=== PATIENT | female | born 2000 | race Hispanic/Latino ===

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

== ENCOUNTER 2019-07-01 16:23 | Emergency (ER) | payer BC, SELFPAY ==
--- OUTSIDE RECORDS SUMMARY | 2019-07-01 16:25 | XMS REPORT | Encounter Summary ---
:2000 Author Care Team Providers Name Role Phone Dr. Rosalina Marin Primary Care Provider [phone] Reason for Visit ear pain/problem Instructions 1. Impacted cerumen of bilateral ears docusate sodium 50 mg/5 mL oral liquid 2. Influenza vaccination declined 3. Immunization refused 4. Body mass index 20-24 - normal Discussion Note: None recorded.Patient educational handouts: No information available. Plan of Care Patient Instructions Meds were sent to your pharmacy today, please call if any issues call/email if you are not feeling better within the next 1-2 weeks Reminders Provider Appointments Est Patient 05/31/2018 Rosalina Mcnair 9:30AM MD [facility] None recorded. Referral None recorded. Procedures None recorded. Surgeries None recorded. Imaging None recorded. Medications Name Start Date docusate sodium 50 mg/5 mL oral liquid apply 1 ml to each ear QHS, rinse thoroughly with warm water after 10 minutes ondansetron odt 4 mg tbdp Medications Administered None recorded. Vitals Height Weight BMI Blood Pressure 5 ft 1.5 in 107.8 lbs 20 kg/m2 122/64 mm[Hg] Lab Results None recorded. Allergies Code Code System Name Reaction Severity Status Onset NKDA Problems No Known Problems Procedures Date Name Performed by 04/13/2000 ENT Surgery (Ear, Nose, Throat) Information not available Vaccine List None recorded. Social History Smoking Status Never Smoker Past Encounters 05/24/2018 Impacted Cerumen of Bilateral Ears; Influenza Vaccination Declined; Immunization Refused; Body Mass Index 20-24 - Normal Rosalina Marin MD: [id number], [address], [place] [address], Ph. History of Present Illness Note: 18 yo female accompanied by mom c/o muffled hearing bilateral ears, x1 week, no relief with homeperoxide treatment<div>initially with nasal congestion and sore throat last week, now resolved</div><div>no relief with mucinex </div><div>denies cough, fever, </div> Review of Systems: ROS as noted in the HPI Review of Systems None recorded. Physical Exam Notes: General: well developed, well nourished, in no acute distress.

Head: normocephalic and atraumatic.

Eyes: PERRL/EOM intact, conjunctiva and sclera clear with out nystagmus.

Ears: TM' obscured with deep cerumen bilaterally, decreased sensitvity to finger rub bilaterally<div>
Nose: no deformity, discharge, inflammation, or lesions.

Mouth: no deformity or lesions with good dentition.

Neck: no masses, thyromegaly, or abnormal cervical nodes.

Chest Wall: no deformities or masses noted.

Lungs: clear bilaterally to auscultation. nonlabored respiratory effort, no wheeze, rales or rhonchi

Heart: chest non-tender; regular rate and rhythm, S1, S2 without murmurs, rubs, or gallops

Abdomen: soft, nontender, nondistended, no masses, no hernia, no rebound, normoactive bowel sounds

Msk: no deformity or scoliosis noted of thoracic or lumbar spine.

Pulses: pulses normal in all 4 extremities.

Extremities: no clubbing, cyanosis, edema, or deformity noted with normal full range of motion of all joints.

Neurologic: no focal deficits, cranial nerves II-XII grossly intact with normal sensation, reflexes, coordination, muscle strength and tone.

Skin: intact without lesions or rashes.

Lymph Nodes:no significant cervical, axillary or supraclavicular adenopathy.

Psych: alert and cooperative; normal mood and affect; normal attention span and concentration. No suicidal/homicidal ideations, no panic attacks</div>
[2019-07-01] MEDS ORDERED: KETOROLAC 30 MG/ML INJ ONE (17:23)
--- NOTE | 2019-07-01 17:38 | RAD REPORT ---
EXAM DESCRIPTION: CT - Stone Protocol - 07/01/2019 5:27 pm CLINICAL HISTORY: FLANK PAIN, right-sided COMPARISON: No comparisons TECHNIQUE: Axial 5 mm thick images were obtained without oral or IV contrast. The [id number] span s the entirety of the system including uppermost abdomen and lung bases. All CT scans are performed using dose optimization technique as appropriate and may include automated exposure control or mA/KV adjustment according to patient size. FINDINGS: Moderate severity hydronephrosis and hydroureter present secondary to a 7 mm distal right ureteral calculus. No other right-sided calculi. A 3 millimeter calcification of the left kidney is p robably within the parenchyma. No suspicious renal masses. Isodense masses and pyelonephritis are not excluded on a stone protocol CT scan. Urinary bladder is fully contracted limiting assessment. No bl adder calculi. No significant adrenal finding. Uterus and ovaries show no suspicious findings. Imaged portions of the liver, spleen and pancreas show no suspicious findings on non-contrast imaging . No gallbladder or biliary tree abnormality identified. No suspicious bowel findings. Appendix is normal. No active bowel process identified. No hernia, mass or bulky lymphadenopathy noted. No free air, free fluid or inflammatory stranding. No significant bony abnormality. IMPRESSION: Moderate severity hydronephrosis and hydroureter secondary to a 7 mm calculus at the UVJ . Isodense masses and pyelonephritis are not excluded on stone protocol technique.
[2019-07-01 17:48] LABS: Urine Blood 2+ (NEG); Urine Glucose NEGATIVE (NEG); Urine Protein TRACE (NEG); Urine pH 8.5 (5.0-7.0)
--- NOTE | 2019-07-01 18:16 | EDPHYS ---
Physician Documentation [facility] Name: Chay Nicholson Age: 19 yrs Sex: Female : 2000 Arrival Date: 07/01/2019 Time: 16:26 Bed 23 Private MD: ED Physician Victorino Hunt HPI: 06/30 18:07 This 19 yrs old Female presents to ER via Ambulatory with complaints of ps1 Abdominal Cramping, Vomiting, General Weakness, Vaginal Bleeding. 18:07 patient has had right flank pain for 2 days. States that the pain radiates to groin. No ps1 fever but does attest to nausea and vomiting. Pain rated as moderate. Able to tolerate PO. . 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 - Social history:: Smoking status: Patient denies any tobacco usage or history of. ROS: 18:07 Constitutional: Negative for fever, chills, and weight loss, Eyes: Negative for injury, ps1 pain, redness, and discharge, Cardiovascular: Negative for chest pain, palpitations, and edema, Respiratory: Negative for shortness of breath, cough, wheezing, and pleuritic chest pain, MS/Extremity: Negative for injury and deformity, Skin: Negative for injury, rash, and discoloration, Neuro: Negative for headache, weakness, numbness, tingling, and seizure. 18:07 Abdomen/GI: Positive for nausea and vomiting. 18:07 : Positive for urinary symptoms, flank pain. Exam: 18:07 Constitutional: This is a well developed, well nourished patient who is awake, alert, ps1 and in no acute distress. Head/Face: Normocephalic, atraumatic. Eyes: Pupils equal round and reactive to light, extra-ocular motions intact. Lids and lashes normal. Conjunctiva and sclera are non-icteric and not injected. Chest/axilla: Normal chest wall appearance and motion. Nontender with no deformity. No lesions are appreciated. Cardiovascular: Regular rate and rhythm. No gallops, murmurs, or rubs. Normal PMI, no JVD. No pulse deficits. Respiratory: Lungs have equal breath sounds bilaterally, clear to auscultation and percussion. No rales, rhonchi or wheezes noted. No increased work of breathing, no retractions or nasal flaring. Abdomen/GI: Soft, non-tender, with normal bowel sounds. No distension or tympany. No guarding or rebound. No evidence of tenderness throughout. Skin: Warm, dry with normal turgor. Normal color with no rashes, no lesions, and no evidence of cellulitis. MS/ Extremity: Pulses equal, no cyanosis. Neurovascular intact. Full, normal range of motion. Vital Signs: 16:44 BP 117 / 76; Pulse 76; Resp 18; Temp 97.4; Pulse Ox 100% on R/A; Weight 53.52 kg; ph Height 5 ft. 0 in. (152.40 cm); Pain 10/10; 18:00 BP 100 / 69; Pulse 74; Resp 16; Pulse Ox 98% on R/A; vc 19:02 BP 109 / 74; Pulse 71; Resp 17; Pulse Ox 98% on R/A; Pain 0/10; vc 16:44 Body Mass Index 23.05 (53.52 kg, 152.40 cm) ph MDM: 16:46 Patient medically screened. ps1 18:07 Data reviewed: vital signs, nurses notes, lab test result(s), radiologic studies, and ps1 as a result, I will discharge patient. ED course: 19 y/o with 7mm stone. No leukocytosis or UTI. Home with trial of medical expulsion therapy. Referral to Dr. Doherty. Home with toradol, zofran, flomax. . 03 16:50 Order name: CBC with Diff ps1 06/30 16:50 Order name: CMP ps1 06/30 17:21 Order name: Urine Dipstick--Ancillary (enter results); Complete Time: 18:04 eb 06/30 17:21 Order name: Urine --Ancillary (enter results); Complete Time: 18:04 eb 06/30 17:22 Order name: Urine Microscopic Only ls4 06/30 16:36 Order name: Urine Dipstick-Ancillary (obtain specimen); Complete Time: 17:16 ps1 06/30 16:36 Order name: Urine Test (obtain specimen); Complete Time: 17:15 ps1 06/30 17:15 Order name: CT Stone Protocol; Complete Time: 18:04 ps1 06/30 17:59 Order name: Labs - recollect needed: recollect all lab/ clotted; Complete Time: 18:17 eb Administered Medications: 17:22 Drug: TORadol - Ketorolac 15 mg Route: IVP; Site: right antecubital; vc 18:17 Follow up: Response: No adverse reaction; Pain is decreased vc Disposition: 07/01/19 18:15 Discharged to Home. Impression: Unspecified renal colic - 7mm stone RUPG. - Condition is Stable. - Discharge Instructions: Kidney Stones, Renal Colic. - Prescriptions for ketorolac 10 mg Oral tablet - take 1 tablet by ORAL route every 4-6 hours not to exceed 40 mg in 24hrs; 10 tablet. Zofran 4 mg Oral Tablet - take 1 tablet by ORAL route every 12 hours As needed; 20 tablet. Flomax 0.4 mg Oral Capsule, Sust. Release 24 hr - take 1 capsule by ORAL route once daily 1/2 hour following the same meal each day; 30 capsule. - Medication Reconciliation Form, Thank You Letter, Antibiotic Education, Prescription Opioid Use form. - Follow up: Emergency Department; When: As needed; Reason: Fever > 102 F, Worsening of condition. Follow up: Javi Doherty MD; When: 48 Hours; Reason: Further diagnostic work-up, Recheck today's complaints, Continuance of care. - Problem is new. - Symptoms have improved. Signatures: Dispatcher [employer] Yana Burns RN RN Victorino Hunt MD MD ps1 Botello, Elizabeth eb Calcote, Vanessa RN RN vc Corrections: (The following items were deleted from the chart) 19:17 18:15 07/01/2019 18:15 Discharged to Home. Impression: Unspecified renal colic - 7mm vc stone RUPG. Condition is Stable. Forms are Medication Reconciliation Form, Thank You Letter, Antibiotic Education, Prescription Opioid Use. Follow up: Emergency Department; When: As needed; Reason: Fever > 102 F, Worsening of condition. Follow up: Javi Doherty; When: 48 Hours; Reason: Further diagnostic work-up, Recheck today's complaints, Continuance of care. Problem is new. Symptoms have improved. ps1
--- NOTE | 2019-07-01 18:16 | ER ---
Nurse's Notes [facility] Name: Chay Nicholson Age: 19 yrs Sex: Female : 2000 Arrival Date: 07/01/2019 Time: 16:26 Bed 23 Private MD: Diagnosis: Unspecified renal colic-7mm stone RUPG Presentation: 06/30 16:44 Chief complaint: Patient states: C/O sever abdominal cramping and low back pain, ph states, " I started my period today but usually my cramps aren't very painful but then my back started hurting and I started vomiting and having chills." Denies urinary symptoms or diarrhea. Coronavirus screen: The patient has NOT traveled to a country currently being monitored by the [facility] within the last 14 days. The patient has NOT had contact with any known and/or suspected case of coronavirus. Ebola Screen: No symptoms or risks identified at this time. Initial Sepsis Screen: Does the patient meet any 2 criteria? No. Patient's initial sepsis screen is negative. Does the patient have a suspected source of infection? No. Patient's initial sepsis screen is negative. Risk Assessment: Do you want to hurt yourself or someone else? Patient reports no desire to harm self or others. 16:44 Method Of Arrival: Ambulatory ph 16:44 Acuity: VISH 3 ph 18:42 Onset of symptoms was July 01, 2019. 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 - Social history:: Smoking status: Patient denies any tobacco usage or history of. Screenin:00 Abuse screen: Denies threats or abuse. Nutritional screening: No deficits noted. vc Tuberculosis screening: No symptoms or risk factors identified. Fall Risk None identified. Assessment: 17:00 Reassessment: Discharge pending lab recollect. General: Appears in no apparent vc distress. uncomfortable, ill, Behavior is calm, cooperative, appropriate for age. Pain: Complains of pain in abdomen. Neuro: Level of Consciousness is awake, alert, obeys commands, Oriented to person, place, time, situation, Appropriate for age. Cardiovascular: Patient's skin is warm and dry. Respiratory: Airway is patent Respiratory effort is even, unlabored, Respiratory pattern is regular, symmetrical. GI: Bowel sounds present X 4 quads. Abd is soft Abdomen is tender to palpation. : No signs and/or symptoms were reported regarding the genitourinary system. Urine is cloudy. EENT: No deficits noted. Derm: Skin temperature is warm. 18:00 Reassessment: Patient and/or family updated on plan of care and expected duration. Pain vc level reassessed. Patient is alert, oriented x 3, equal unlabored respirations, skin warm/dry/pink. Patient denies pain at this time. Patient states feeling better. 18:59 Reassessment: Patient and/or family updated on plan of care and expected duration. Pain vc level reassessed. Patient is alert, oriented x 3, equal unlabored respirations, skin warm/dry/pink. Patient denies pain at this time. Patient states feeling better. Patient states symptoms have improved. Vital Signs: 16:44 BP 117 / 76; Pulse 76; Resp 18; Temp 97.4; Pulse Ox 100% on R/A; Weight 53.52 kg; ph Height 5 ft. 0 in. (152.40 cm); Pain 10/10; 18:00 BP 100 / 69; Pulse 74; Resp 16; Pulse Ox 98% on R/A; vc 19:02 BP 109 / 74; Pulse 71; Resp 17; Pulse Ox 98% on R/A; Pain 0/10; vc 16:44 Body Mass Index 23.05 (53.52 kg, 152.40 cm) ph ED Course: 16:26 Patient arrived in ED. ag5 16:35 Victorino Hunt MD is Attending Physician. ps1 16:42 Caroline Faith, MARTITA is Primary Nurse. vc 16:47 Triage completed. ph 16:48 Arm band placed on Patient placed in an exam room. ph 17:00 Patient has correct armband on for positive identification. Bed in low position. Pulse vc ox on. NIBP on. Warm blanket given. 17:27 CT Stone Protocol In Process Unspecified. EDMS 18:14 Javi Doherty MD is Referral Physician. ps1 Administered Medications: 17:22 Drug: TORadol - Ketorolac 15 mg Route: IVP; Site: right antecubital; vc 18:17 Follow up: Response: No adverse reaction; Pain is decreased vc Outcome: 18:15 Discharge ordered by . ps1 19:17 Patient left the ED. vc Signatures: Dispatcher [employer] Yana Burns, MARTITA RN Victorino Montana MD MD ps1 [place], [facility] Caroline Faith RN RN vc
[2019-07-01 18:47] LABS: Absolute Lymphocytes (CBC) 0.3 K/uL (0.7-4.9); Basophils % 0.3 % (0-1.3); Hematocrit 39.3 % (36.0-45.0); Lymphocytes % 2.8 % (15.3-44.8); MPV 10.4 fL (7.6-11.3); RBC Red Blood Cell Count 4.49 M/uL (3.86-4.86)
[2019-07-01 18:51] LABS: Urine Amorphous Sediment 3+ /HPF (NONE SEEN); Urine Bacteria <20 /HPF (<20)
[2019-07-01 19:01] LABS: Albumin 4.1 g/dL (3.4-5.0); Bilirubin Total 0.4 mg/dL (0.2-1.0); Potassium 4.3 mmol/L (3.5-5.1); Protein, Total 8.3 g/dL (6.4-8.2)
[2019-07-01 19:39] VITALS: TEMP 97.4
[2019-07-01 19:40] VITALS: O2SAT 98
[2019-07-01 19:41] VITALS: BP 109/74
[2019-07-01 21:05] LABS: Blood Morphology Comment NOT SEEN (NOT SEEN); Platelet Estimate ADEQ; White Blood Cell Scan OK
== END 2019-07-01 19:17 | disposition home or self-care (01) ==
LOC: ER 16:23
DX: N20.0 Calculus of kidney (principal)
CPT/HCPCS: 36415; 74176; 76377; 80053; 81003; 81015; 81025; 85025; 96374; 99283

== ENCOUNTER 2020-08-16 21:50 | Emergency (ER) | payer OTHER, SELFPAY ==
--- OUTSIDE RECORDS SUMMARY | 2020-08-16 21:52 | XMS REPORT | Continuity of Care Document ---
:2000 Author Organization [facility] t Address [address] [place] [address] Care Team Providers Name Role Phone [facility], [facility] Attending Clinician Unavailable Problems This patient has no known problems. Allergies, Adverse Reactions, Alerts This patient has no known allergies or adverse reactions. Social History Smoking Status Start Date Stop Date Source Never Smoker [facility] Medications Ordered Filled Start Stop Current Ordering Indication Dosage Frequency Signature Comments Components Source Medication Medication Date Date Medication? Clinician (SIG) Name Name docusate docusate No docusate Marimar margaret sodium 50 sodium 50 sodium 50 Family mg/5 mL mg/5 mL mg/5 mL Practi c oral liquid oral liquid oral e apply 1 ml apply 1 ml liquid to each ear to each ear apply 1 ml QHS, rinse QHS, rinse to each thoroughly thoroughly ear QHS, with warm with warm rinse water after water after thoroughly 10 minutes 10 minutes with warm water after 10 minutes ondansetron ondansetron No ondansetro [facility] odt 4 mg odt 4 mg n odt 4 mg F amily tbdp tbdp tbdp Practic e Vital Signs Vital Name Observation Time Observation Value Comments Source BP Diastolic 2018-05-24 00:00:00 64 mm[Hg] [facility] Height 2018-05-24 00:00:00 61.5 [in_i] [facility] BMI (Body Mass 2018-05-24 00:00:00 20 kg/m2 [facility] Family Index) Practice BP Systolic 2018-05-24 00:00:00 122 mm[Hg] [facility] Body Weight 2018-05-24 00:00:00 107.8 [lb_av] [facility] Procedures This patient has no known procedures. Plan of Care Planned Activity Planned Date Details Comments Source Instructions [facility] Encounters Start End Encounter Admission Attending Care Care Encounter Source Date/Time Date/Time Type Type Clinicians Facility Department ID 2020-08-01 2020-08-01 [facility] [id number] 13:22:53 13:52:[address] 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 Results This patient has no known results.
[2020-08-16 23:31] LABS: Urine Blood Negative (Negative); Urine Glucose Negative (Negative); Urine Protein Negative (Negative); Urine Specific Gravity 1.025 (1.005-1.030)
[2020-08-16 23:39] LABS: Urine Specific Gravity/Preg 1.025 (1.005-1.030)
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
[2020-08-17 00:28] VITALS: BP 109/80; TEMP 97.1; O2SAT 99
[2020-08-17] MEDS ORDERED: NA CHLORIDE 0.9% 50 ML ONE (01:30)
[2020-08-17] MEDS ORDERED: CEFAZOLIN SODIUM 1 GM/VIAL ONE (01:30)
[2020-08-17] MEDS ORDERED: NA CHLORIDE 0.9% 500 ML ONE (01:30)
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
== END 2020-08-17 00:03 | disposition home or self-care (01) ==
LOC: ER 21:50
DX: O9A.211 Injury, poisoning and certain other consequences of external causes complicating pregnancy, first trimester (principal); S39.91XA Unspecified injury of abdomen, initial encounter; Z3A.01 Less than 8 weeks gestation of pregnancy; V49.40XA Driver injured in collision with unspecified motor vehicles in traffic accident, initial encounter
CPT/HCPCS: 81025; 81003; 76815; 99283; J7040; J0690

== ENCOUNTER 2022-10-09 09:03 | Emergency (ER) | payer OTHER, SELFPAY ==
--- OUTSIDE RECORDS SUMMARY | 2022-10-09 09:15 | XMS REPORT | Continuity of Care Document ---
:2000 Author Organization [facility] t Address [address] [facility] [address] [place] [address] Care Team Providers Name Role Phone MALDONADO KOLB Primary Care Physician Unavailable MALDONADO KOLB Attending Clinician Unavailable MARILYN TORO Attending Clinician Unavailable KAILASH SONG Attending Clinician Unavailable Kennedi Maldonado PANIAGUA Attending Clinician [phone] MONAE DOMINGO Attending Clinician Unavailable JIMBO BAKER Attending Clinician Unavailable JIMBO BAKER Attending Clinician Unavailable CHEYANNE VARGAS Attending Clinician Unavailable Cheyanne Vargas MD Attending Clinician Ultrasound, [place] Attending Clinician Unavailable Monae Domingo MD Attending Clinician [phone] [facility] [place] Ramonita BURGESS Attending Clinician Lab, Lito Attending Clinician Unavailable Avni Rosales MD Attending Clinician [phone] AVNI ROSALES Attending Clinician Unavailable Provider, Lito Temp Attending Clinician Unavailable Doctor Unassigned, [place] Attending Clinician Unavailable Victorino Hunt DO Attending Clinician VICTORINO HUNT Attending Clinician Unavailable Susan Gray Attending Clinician SUSAN LEPE Attending Clinician Unavailable Kev TOBAR, Obed Lara Attending Clinician Benson Tyler DO Attending Clinician Ly TOBAR, Kina Cool Attending Clinician Lucio CNPJorge Attending Clinician [phone] JORGE SAMANO Attending Clinician Unavailable Martha Leon MD Attending Clinician 1, [place] Room Attending Clinician Unavailable Lab, [place] Attending Clinician Unavailable Rudy MSN, Isamar Mitchell Attending Clinician JIMBO BAKER Admitting Clinician Unavailable CHEYANNE VARGAS Admitting Clinician Unavailable Cheyanne Vargas MD Admitting Clinician VICTORINO HUNT Admitting Clinician Unavailable Obed Angulo MD Admitting Clinician Payers Payer Name Policy Type Policy Number Effective Date Expiration Date [facility] [id number] 2020 CHOICE MEDICAID 00:00:00 MEDICAID PENDING PENDING 2020 00:00:00 [id number] 2016 00:00:00 Problems Condition Condition Condition Status Onset Resolution Last Treating Co mments Source Name Details Category Date Date Treatment Clinician Date Routine Routine Disease Active Univers 5-24 it y of follow-up [facility] [place] [facility] Decreased Decreased Disease Active Uni vers platelet platelet 5-04 ity of count count 00:00: [address] Branch 34 weeks 34 weeks Disease Active Unive rs gestation gestation 5-03 ity of of of 00:00: [place] 00 [facility] Branch Disease Active Univers contractio contractio 5-03 it y of ns ns 00:00: [place] 00 Medical Branch Active Active Disease Active Univers 5-03 ity of labor, not labor, [place] 00:[place] applicable applicable 00 Me dical or or Branch unspecifie unspecifie d fetus d fetus Abnormal Abnormal Disease Active Overview: Un pratik maternal maternal 3-03 Formattin ity of glucose glucose 00:00: g of this [place] tolerance, tolerance, 00 note Me dical antepartum antepartum might be Branch different from the original. passed 3hr Two vessel Two vessel Disease Active U nivers umbilical umbilical 1-23 ity of cord, cord, 00:00: [place] antepartum antepartum 00 Me dical Branch Multiparit Multiparit Disease Active 2021-04 U nivers y y 2-08 ity of 00:00: [place] [facility] BMI BMI Disease Active 2021-04 Univers 26.0-26.9, 26.0-26.9, 0-13 it y of adult adult 00:00: [place] [facility] Over Over Disease Active 2021-04 Univers weight weight 0-13 ity of 00:00: [place] [facility] Supervisio Supervisio Disease Active U nivers n of n of 3-19 ity of high-risk high-risk 00:[place] [facility] Encounter Encounter Disease Active Uni vers for for 4-20 ity of immunizati immunizati [place] [facility] Disease Active Univers (spontaneo (spontaneo 3-08 it y of [place] vaginal [place] vaginal [place] delivery[place] delivery[place] [facility] Single Single Disease Active Univers live live 3-08 it y of 00:00: [place] [facility] No known No known Disease Unive rs active active ity of problems problems [facility] Allergies, Adverse Reactions, Alerts Allergy Allergy Status Severity Reaction(s) Onset Inactive Treating Comm ents Source Name Type Date Date Clinician NO KNOWN Drug Active Univers ALLERGIE Class ity of S [facility] Social History Social Habit Start Date Stop Date Quantity Comments Source ASSERTION 2021-12-26 University of 00:00:00 [facility] Exposure to 2022-08-24 2022-09-03 Not sure [facility] SARS-CoV-2 00:00:00 11:06:00 [facility] [place] [facility] (event) [place] Tobacco use and 2022-08-13 2022-08-13 Smokeless tobacco Un iversity of exposure 00:00:00 00:00:00 non-user [facility] Alcohol intake 2022-08-13 2022-08-13 0 /d [facility] 00:00:00 00:00:00 [facility] Sex Assigned At [birth year] Universit y of 00:00:00 00:00:00 [facility] Smoking Status Start Date Stop Date Source Never smoked tobacco [facility] Medications Ordered Filled Start Stop Current Ordering Indication Dosage Frequency Signature Comments Components Source Medication Medication Date Date Medication? Clinician (SIG) Name Name rho(D) Yes 300ug 300 mcg, Univer s immune 5-04 Intramuscu ity of globulin 00:17: lar, ONCE, Danny as (RHOGAM) 01 For 1 Medical syringe 300 dose, Branch mcg Conditiona l, Routine ibuprofen Yes 600mg 600 mg, Univ ers (IBU) 5-04 Oral, ity of tablet 600 00:16: Q6[place]PRN[place] mg 52 Starting Medical on Thu Branch 08/13/22 at 1915, Until Discontinu ed, Routine, Pain (scale 4-6) diphenhydrA Yes 25mg 25 mg, Univ ers MINE 5-04 Oral, ity of (BENADRYL) 00:16: Q6[place]PRN[place] tablet 25 52 Starting Medica l mg on Thu Branch 08/13/22 at 1915, Until Discontinu ed, Routine, Sleep, Itching ondansetron Yes 4mg 4 mg, Slow Univers (ZOFRAN 5-04 IV Push, ity of (PF)) 00:16: Q8HPRN, [place] injection 4 52 Starting Medi mello mg on Thu Branch 08/13/22 at 1915, Until Discontinu ed, Routine, Nausea and Vomiting (N/V) simethicone Yes 160mg 160 mg, Un pratik (GAS RELIEF 5-04 Oral, ity of (SIMETHICON 00:16: PC+HSPRN, [place] E)) 52 Starting Medical chewable on Thu Branch tablet 160 08/13/22 at mg 1915, Until Discontinu ed, Routine, Gas docusate Yes 200mg 200 mg, Unive rs (COLACE) 5-04 Oral, ity of capsule 200 00:16: QDAILYPRN, [place] mg 52 Starting Medical on Thu Branch 08/13/22 at 1916, Until Discontinu ed, Routine, Constipati on magnesium Yes 30mL 30 mL, Univer s hydroxide 5-04 Oral, ity of (MILK OF 00:16: QDAILYPRN, [place] MAGNESIA) 52 Starting Medica l 400 mg/5 mL on Thu Branch suspension 08/13/22 at 30 mL 1915, Until Discontinu ed, Routine, Constipati on benzocaine- Yes Topical, Un pratik menthol 5-04 PRN, ity of (DERMOPLAST 00:16: [place] ) 20-0.5 % 52 on Thu Medical topical 08/13/22 at Branch spray 1915, Until Discontinu ed, Routine, Perineum discomfort Yes [id number] 1{tbl} Take 1 Univers [id number] 5-04 tablet by ity of fum-folic 00:00: mouth in [facility] () 00 the Medical 27 mg iron- morning. Bran ch 1 mg folic tablet docusate Yes [id number] 200mg Take 2 U nivers 100 mg 5-04 capsules ity of capsule 00:00: by mouth [place] 00 once daily Medical as needed Branch for Constipati on. ferrous Yes [id number] 325mg Take 1 Un prat[place] sulfate 325 5-04 tablet by ity of mg (65 mg 00:00: mouth in [facility] iron) 00 the Medical tablet morning. Branch ibuprofen Yes [id number] 600mg Take 1 Univers 600 mg 5-04 tablet by ity of tablet 00:00: mouth [place] 00 every 6 Medical (six) Branch hours as needed (Pain). Take with food or milk. Yes [id number] 1{tbl} Take 1 Univers [id number] 5-04 tablet by ity of fum-folic 00:00: mouth in [facility] () 00 the Medical 27 mg iron- morning. Bran ch 1 mg folic tablet docusate Yes [id number] 200mg Take 2 U nivers 100 mg 5-04 capsules ity of capsule 00:00: by mouth [place] 00 once daily Medical as needed Branch for Constipati on. ferrous Yes [id number] 325mg Take 1 Un pratik sulfate 325 5-04 tablet by ity of mg (65 mg 00:00: [place] iron[place] 00 the Medical tablet morning. Branch ibuprofen Yes [id number] 600mg Take 1 Univers 600 mg 5-04 tablet by ity of tablet 00:00: mouth [place] 00 every 6 Medical (six) Branch hours as needed (Pain). Take with food or milk. acetaminoph Yes 650mg 650 mg, Un pratik en 08-13 Oral, ity of (TYLENOL) 22:58: Q6HPRN, [place] tablet 650 06 Starting Medic al mg on Thu08/13/22 at 1758, Until Discontinu ed, Routine, Pain (scale 1-3) morpHINE (4 No 4mg 4 mg, Slow Univers mg/mL) 08-13 IV Push, ity of injection 4 22:30: 21:19 ONCE, 1 [place] mg 00 :00 dose, On Medical Thu08/13/22 Branch at 1730, Routine ibuprofen 2022- No 600mg 600 mg, Uni vers (IBU) 08-13 Oral, ity of tablet 600 21:30: 00:17 Q6HPRN, [place] mg 48 :00 Starting Medical on Thu Branch 08/13/22 at 1630, Until Thu08/13/22 at 1917, Routine, Pain (scale 1-3) oxytocin 2022- No 600mL/h 600 mL/hr, Univers (PITOCIN) 08-13 IV ity of 30 units in 21:30: 00:17 Infusion, [place] NS 500 mL 41 :00 PRN, For Medica l IV infusion post Branch delivery uterine atony., Starting on Thu08/13/22 at 1630<br&gt ;Start at 600 mL/hr for 1 hr then 150 mL/hr for 1 hr.
lidocaine 2022- No 30mL 30 mL, Unive rs 1% 5-03 05-04 Infiltrati ity of (XYLOCAINE) 21:00: 00:17 on, NMN - [place] 10 mg/mL (1 38 :00 SEE Medical %) INSTRUCTIO Branch injection NS, 30 mL Starting on Thu08/13/22 at 1600, Until Thu08/13/22 at 1917, Routine, Local anesthesia , For laceration repair only as a local anesthetic as indicated. Yes 1{tbl} 1 tablet, Un pratik vitamin -03 Oral, ity of w/FA tablet 14:00: DAILY, [place] 1 tablet 00 First dose Medic al on Thu08/13/22 at 0900, Until Discontinu ed, Routine Nitrofurant 2022- Yes 100mg 100 mg, U nivers oin&Nit. 08-13 05-10 Oral, BID, ity of Macrocryst 05:30: 00:59 14 doses, [place] (MACROBID) 00 :00 First dose Med ical 100 mg on Thu capsule 100 08/13/22 at mg 0030, Last dose on Thu08/19/22 at 0800, Routine
Reason for Anti-Infec tive: Documented Infection< br>Documen nelda Infection Site: Pelvic
Duration of Therapy: 7 days alum-mag Yes 30mL 30 mL, Univers hydroxide-s 08-13 Oral, ity of imeth 05:22: Q6HPRN, [place] (MAALOX 23 Starting Medical PLUS / on Thu MAG-AL 08/13/22 at PLUS) 0022, 200-200-20 Until mg/5 mL Discontinu suspension ed, 30 mL Routine, Indigestio n docusate Yes 200mg 200 mg, Unive rs (COLACE) 08-13 Oral, ity of capsule 200 05:22: QHSPRN, [place] mg 23 Starting Medical on Thu Branch 08/13/22 at 0022, Until Discontinu ed, Routine, Constipati on magnesium Yes 30mL 30 mL, Univer s hydroxide 08-13 Oral, ity of (MILK OF 05:22: QDAILYPRN, [place] MAGNESIA) 23 Starting Medica l 400 mg/5 mL on Thu Branch suspension 08/13/22 at 30 mL 0022, Until Discontinu ed, Routine, Constipati on lactated 2022- No 1000mL at 999 Univ ers ringers IV 08-13-03 mL/hr, ity of infusion 04:00: 03:30 1,000 mL, [place] as 1,000 mL 00 :36 Intravenou Medic al s, ONCE, 1 Branch dose, On Thu08/12/22 at 2300, Routine morpHINE (4 2022- No 4mg 4 mg, Slow Univers mg/mL) 08-13 IV Push, ity of injection 4 04:00: 03:28 ONCE, 1 [place] mg 00 :00 dose, On Medical Thu08/12/22 Branch at 2300, Routine acetaminoph 2022- No 1000mg 1,000 mg, Univers en 08-1303 Oral, ity of (TYLENOL) 01:30: 01:09 ONCE, 1 [place] tablet 00 :00 dose, On Medical 1,000 mg Thu08/12/22 Branc h at 2030, Routine Nitrofurant 2022- Yes [id number] 100mg Take 1 Univers oin&Nit. 5-02 05-10 capsule by ity of Macrocryst 00:00: 04:59 mouth in [place] 100 mg 00 :00 the Medical capsule morning Branch and 1 capsule in the evening. Do all this for 7 days. Nitrofurant 2022- Yes [id number] 100mg Take 1 Univers oin&Nit. 5-02 05-10 capsule by ity of Macrocryst 00:00: 04:59 mouth in [place] 100 mg 00 :00 the Medical capsule morning Branch and 1 capsule in the evening. Do all this for 7 days. Nitrofurant 2022- Yes [id number] 100mg Take 1 Univers oin&Nit. 5-02 05-10 capsule by ity of Macrocryst 00:00: 04:59 mouth in [place] 100 mg 00 :00 the Medical capsule morning Branch and 1 capsule in the evening. Do all this for 7 days. Prenat Vit 2021-04 Yes [id number] 1{packa Take 1 Univers Comb.10-Iro 0-13 ge} Package by it y of n-FA-DHA 00:00: mouth [place] (VITAFOL-OB 00 daily. Medica l +DHA) Branch 65-1-250 mg combo pack Prenat Vit 2021-04 Yes [id number] 1{packa Take 1 Univers Comb.10-Iro 0-13 ge} Package by it y of n-FA-DHA 00:00: mouth [place] (VITAFOL-OB 00 daily. Medica l +DHA) Branch 65-1-250 mg combo pack Prenat Vit 2021-04 Yes [id number] 1{packa Take 1 Univers Comb.10-Iro 0-13 ge} Package by it y of n-FA-DHA 00:00: mouth [place] (VITAFOL-OB 00 daily. Medica l +DHA) Branch 65-1-250 mg combo pack Prenat Vit 2021-04 Yes [id number] 1{packa Take 1 Univers Comb.10-Iro 0-13 ge} Package by it y of n-FA-DHA 00:00: mouth [place] (VITAFOL-OB 00 daily. Medica l +DHA) Branch 65-1-250 mg combo pack Prenat Vit 2021-04 Yes [id number] 1{packa Take 1 Univers Comb.10-Iro 0-13 ge} Package by it y of n-FA-DHA 00:00: mouth [place] (VITAFOL-OB 00 daily. Medica l +DHA) Branch 65-1-250 mg combo pack Prenat Vit 2021-04 Yes [id number] 1{packa Take 1 Univers Comb.10-Iro 0-13 ge} Package by it y of n-FA-DHA 00:00: mouth [place] (VITAFOL-OB 00 daily. Medica l +DHA) Branch 65-1-250 mg combo pack Prenat Vit 2021-04 Yes [id number] 1{packa Take 1 Univers Comb.10-Iro 0-13 ge} Package by it y of n-FA-DHA 00:00: mouth [place] (VITAFOL-OB 00 daily. Medica l +DHA) Branch 65-1-250 mg combo pack Prenat Vit 2021-04 Yes [id number] 1{packa Take 1 Univers Comb.10-Iro 0-13 ge} Package by it y of n-FA-DHA 00:00: mouth [place] (VITAFOL-OB 00 daily. Medica l +DHA) Branch 65-1-250 mg combo pack Prenat Vit 2021-04 Yes [id number] 1{packa Take 1 Univers Comb.10-Iro 0-13 ge} Package by it y of n-FA-DHA 00:00: mouth [place] (VITAFOL-OB 00 daily. Medica l +DHA) Branch 65-1-250 mg combo pack Prenat Vit 2021-04 Yes [id number] 1{packa Take 1 Univers Comb.10-Iro 0-13 ge} Package by it y of n-FA-DHA 00:00: mouth [place] (VITAFOL-OB 00 daily. Medica l +DHA) Branch 65-1-250 mg combo pack Prenat Vit 2021-04 Yes [id number] 1{packa Take 1 Univers Comb.10-Iro 0-13 ge} Package by it y of n-FA-DHA 00:00: mouth [place] (VITAFOL-OB 00 daily. Medica l +DHA) Branch 65-1-250 mg combo pack Prenat Vit 2021-04 Yes [id number] 1{packa Take 1 Univers Comb.10-Iro 0-13 ge} Package by it y of n-FA-DHA 00:00: mouth [place] (VITAFOL-OB 00 daily. Medica l +DHA) Branch 65-1-250 mg combo pack Prenat Vit 2021-04 Yes [id number] 1{packa Take 1 Univers Comb.10-Iro 0-13 ge} Package by it y of n-FA-DHA 00:00: mouth [place] (VITAFOL-OB 00 daily. Medica l +DHA) Branch 65-1-250 mg combo pack Prenat Vit 2021-04 Yes [id number] 1{packa Take 1 Univers Comb.10-Iro 0-13 ge} Package by it y of n-FA-DHA 00:00: mouth [place] (VITAFOL-OB 00 daily. Medica l +DHA) Branch 65-1-250 mg combo pack Prenat Vit 2021-04 Yes [id number] 1{packa Take 1 Univers Comb.10-Iro 0-13 ge} Package by it y of n-FA-DHA 00:00: mouth [place] (VITAFOL-OB 00 daily. Medica l +DHA) Branch 65-1-250 mg combo pack Prenat Vit 2021-04 Yes [id number] 1{packa Take 1 Univers Comb.10-Iro 0-13 ge} Package by it y of n-FA-DHA 00:00: mouth [place] (VITAFOL-OB 00 daily. Medica l +DHA) Branch 65-1-250 mg combo pack Prenat Vit 2021-04 Yes [id number] 1{packa Take 1 Univers Comb.10-Iro 0-13 ge} Package by it y of n-FA-DHA 00:00: mouth [place] (VITAFOL-OB 00 daily. Medica l +DHA) Branch 65-1-250 mg combo pack Prenat Vit 2021-04 Yes [id number] 1{packa Take 1 Univers Comb.10-Iro 0-13 ge} Package by it y of n-FA-DHA 00:00: mouth [place] (VITAFOL-OB 00 daily. Medica l +DHA) Branch 65-1-250 mg combo pack Prenat Vit 2021-04 Yes [id number] 1{packa Take 1 Univers Comb.10-Iro 0-13 ge} Package by it y of n-FA-DHA 00:00: mouth [place] (VITAFOL-OB 00 daily. Medica l +DHA) Branch 65-1-250 mg combo pack Prenat Vit 2021-04 Yes [id number] 1{packa Take 1 Univers Comb.10-Iro 0-13 ge} Package by it y of n-FA-DHA 00:00: mouth [place] (VITAFOL-OB 00 daily. Medica l +DHA) Branch 65-1-250 mg combo pack Prenat Vit 2021-04 Yes [id number] 1{packa Take 1 Univers Comb.10-Iro 0-13 ge} Package by it y of n-FA-DHA 00:00: mouth [place] (VITAFOL-OB 00 daily. Medica l +DHA) Branch 65-1-250 mg combo pack Prenat Vit 2021-04 Yes [id number] 1{packa Take 1 Univers Comb.10-Iro 0-13 ge} Package by it y of n-FA-DHA 00:00: mouth [place] (VITAFOL-OB 00 daily. Medica l +DHA) Branch 65-1-250 mg combo pack Prenat Vit 2021-04 Yes [id number] 1{packa Take 1 Univers Comb.10-Iro 0-13 ge} Package by it y of n-FA-DHA 00:00: mouth [place] (VITAFOL-OB 00 daily. Medica l +DHA) Branch 65-1-250 mg combo pack Prenat Vit 2021-04 Yes [id number] 1{packa Take 1 Univers Comb.10-Iro 0-13 ge} Package by it y of n-FA-DHA 00:00: mouth [place] (VITAFOL-OB 00 daily. Medica l +DHA) Branch 65-1-250 mg combo pack Prenat Vit 2021-04 Yes [id number] 1{packa Take 1 Univers Comb.10-Iro 0-13 ge} Package by it y of n-FA-DHA 00:00: mouth [place] (VITAFOL-OB 00 daily. Medica l +DHA) Branch 65-1-250 mg combo pack Prenat Vit 2021-04 Yes [id number] 1{packa Take 1 Univers Comb.10-Iro 0-13 ge} Package by it y of n-FA-DHA 00:00: mouth [place] (VITAFOL-OB 00 daily. Medica l +DHA) Branch 65-1-250 mg combo pack Prenat Vit 2021-04 Yes [id number] 1{packa Take 1 Univers Comb.10-Iro 0-13 ge} Package by it y of n-FA-DHA 00:00: mouth [place] (VITAFOL-OB 00 daily. Medica l +DHA) Branch 65-1-250 mg combo pack Prenat Vit 2021-04 Yes [id number] 1{packa Take 1 Univers Comb.10-Iro 0-13 ge} Package by it y of n-FA-DHA 00:00: mouth [place] (VITAFOL-OB 00 daily. Medica l +DHA) Branch 65-1-250 mg combo pack Prenat Vit 2021-04 Yes [id number] 1{packa Take 1 Univers Comb.10-Iro 0-13 ge} Package by it y of n-FA-DHA 00:00: mouth [place] (VITAFOL-OB 00 daily. Medica l +DHA) Branch 65-1-250 mg combo pack Prenat Vit 2021-04 Yes [id number] 1{packa Take 1 Univers Comb.10-Iro 0-13 ge} Package by it y of n-FA-DHA 00:00: mouth [place] (VITAFOL-OB 00 daily. Medica l +DHA) Branch 65-1-250 mg combo pack Prenat Vit 2021-04 Yes [id number] 1{packa Take 1 Univers Comb.10-Iro 0-13 ge} Package by it y of n-FA-DHA 00:00: mouth [place] (VITAFOL-OB 00 daily. Medica l +DHA) Branch 65-1-250 mg combo pack Prenat Vit 2021-04 Yes [id number] 1{packa Take 1 Univers Comb.10-Iro 0-13 ge} Package by it y of n-FA-DHA 00:00: mouth [place] (VITAFOL-OB 00 daily. Medica l +DHA) Branch 65-1-250 mg combo pack Prenat Vit 2021-04 Yes [id number] 1{packa Take 1 Univers Comb.10-Iro 0-13 ge} Package by it y of n-FA-DHA 00:00: mouth [place] (VITAFOL-OB 00 daily. Medica l +DHA) Branch 65-1-250 mg combo pack Prenat Vit 2021-043- No [id number] 1{packa Take 1 Univers Comb.10-Iro 0-13 05-03 ge} Package by i ty of n-FA-DHA 00:00: 00:00 mouth [place] (VITAFOL-OB 00 :00 daily. Medica l +DHA) Branch 65-1-250 mg combo pack naproxen 2021-0 Yes [id number] 550mg Take 1 U nivers sodium 550 6-29 tablet by ity of mg tablet 00:00: mouth 2 [place] (two) Medical times Branch daily with meals. methylPREDN 2021-0 Yes [id number] Take by Univers ISolone 4 6-29 mouth ity of mg tablets 00:00: [place]-INSTRU [place] 00 CTIONS. Medical follow Branch package directions naproxen 2021-0 Yes [id number] 550mg Take 1 U nivers sodium 550 6-29 tablet by ity of mg tablet 00:00: mouth 2 (two) Medical times Branch daily with meals. methylPREDN 2021-0 Yes [id number] Take by Univers ISolone 4 10-09 mouth ity of mg tablets 00:00: [place]-INSTRU [place] 00 CTIONS. Medical follow Branch package directions naproxen 2021- No [id number] 550mg Take 1 Univers sodium 550 10-09 tablet by ity of mg tablet 00:00: 00:00 mouth 2 [place] 00 :[place] (two) Medical times Branch daily with meals. methylPREDN 2021- No [id number] Take by Univers ISolone 4 10-09 mouth ity of mg tablets 00:00: 00:00 SEE-INSTRU [place] 00 :00 CTIONS. Medical follow Branch package directions methocarbam 2021- No [id number] 500mg Take 1 Univers oL 500 mg 10-09 0705 tablet by ity of tablet 00:00: 04:59 mouth 3 [place] 00 :00 (three) Medical times Branch daily for 5 days. ferrous 2020-04 Yes [id number] 325mg Take 1 Un pratik sulfate 325 0-20 tablet by ity of mg (65 mg 00:00: mouth 2 [place] iron) 00 (two) Medical tablet times Branch daily. ferrous 2020-04- No [id number] 325mg Take 1 U nivers sulfate 325 0-20 10-09 tablet by it y of mg (65 mg 00:00: 00:00 mouth [place] iron) 00 :00 (two) Medical tablet times Branch daily. 2020-04- No [id number] 1{tbl} Take 1 Univers [id number] 0-20 03-13 tablet by it y of fum-folic 00:00: 00:00 mouth [place] () 00 :00 daily. Medical 27 mg iron- Branch 1 mg Tab docusate 2020-04- No [id number] 240mg Take 1 Univers calcium 240 0-20 03-13 capsule by i ty of mg capsule 00:00: 00:00 mouth once [place] 00 :00 daily as Medical needed for Branch Constipati on. ibuprofen 2020-04- No [id number] 600mg Take 1 Univers 600 mg 0-20 03-13 tablet by ity of tablet 00:00: 00:00 mouth [place] 00 :00 every 6 Medical (six) Branch hours as needed (Pain). Take with food or milk. docusate docusate No docusate [place] margaret sodium [...] after 10 minutes ondansetron ondansetron No ondansetro [place] odt 4 mg odt 4 mg n odt 4 mg F amily tbdp tbdp tbdp Practic e Immunizations Ordered Immunization Filled Date Status Comments Sour ce Name Immunization Name [facility] 2022-06-27 Completed University of 00:00: [facility] 2022-06-27 Completed University of 00:00:00 [facility] 2022-06-27 Completed University of 00:00:00 [facility] 2022-06-27 Completed University of 00:00:00 [facility] 2022-06-27 Completed University of 00:00:00 [facility] 2022-06-27 Completed University of 00:00:00 [facility] 2022-06-27 Completed University of 00:00:00 [facility] 2022-06-27 Completed University of 00:00:00 [facility] 2022-06-27 Completed University of 00:00:00 [facility] 2022-06-27 Completed University of 00:00:00 [facility] 2022-06-27 Completed University of 00:00:00 [facility] 2022-06-27 Completed University of 00:00:00 [facility] 2022-06-27 Completed University of 00:00:00 [facility] 2020-11-13 Completed University of 00:00:00 [facility] 2020-11-13 Completed University of 00:00:00 [facility] 2020-11-13 Completed University of 00:00:00 [facility] 2020-11-13 Completed [facility] University of 00:00:00 [facility] 2020-11-13 Completed University of 00:00:00 [facility] [place] [facility] TDAP 2020-11-13 Completed University of 00:00:00 [facility] [place] [facility] TDAP 2020-11-13 Completed University of 00:00:00 [place] [facility] TDAP 2020-11-13 Completed University of 00:00:00 [facility] [place] [facility] TDAP 2020-11-13 Completed University of 00:00:00 [facility] [place] [facility] TDAP 2020-11-13 Completed University of 00:00:00 [facility] [place] [facility] TDAP 2020-11-13 Completed University of 00:00:00 [facility] [place] [facility] TDAP 2020-11-13 Completed University of 00:00:00 [facility] [place] [facility] TDAP 2020-11-13 Completed University of 00:00:00 [facility] [place] [facility] TDAP 2020-11-13 Completed University of 00:00:00 [facility] [place] [facility] TDAP 2020-11-13 Completed University of 00:00:00 [facility] [facility]AP 2020-11-13 Completed [facility] 00:00:00 [facility] TDAP 2020-11-13 Completed [facility] 00[facility]00:00 [facility] TDAP 2020-11-13 Completed [facility] 00[facility]00:00 [facility] TDAP 2020-11-13 Completed [facility] 00:00:00 [facility] TDAP 2020-11-13 Completed [facility] 00:00:00 [facility] TDAP 2020-11-13 Completed [facility] 00:00:00 [facility] TDAP 2020-11-13 Completed [facility] 00:00:00 [facility] TDAP 2020-11-13 Completed [facility] 00:00:00 [facility] TDAP 2020-11-13 Completed [facility] 00:00:00 [facility] TDAP 2020-11-13 Completed [facility] 00:00:00 [facility] TDAP 2020-11-13 Completed [facility] 00[facility]00:00 [facility] TDAP 2020-11-13 Completed [facility] 00:00:00 [facility] TDAP 2020-11-13 Completed [facility] 00[facility]00:00 [facility] TDAP 2020-11-13 Completed [facility] 00:00:00 [facility] TDAP 2020-11-13 Completed [facility] 00:00:00 [facility] TDAP 2020-11-13 Completed [facility] 00:00:00 [facility] TDAP 2020-11-13 Completed [facility] 00:00:00 [facility] TDAP 2020-11-13 Completed [facility] 00:00:00 [facility] TDAP 2020-11-13 Completed [facility] 00:00:00 [facility] TDAP 2020-11-13 Completed [facility] 00:00:00 [facility] TDAP 2020-11-13 Completed [facility] 00:00:00 [facility] TDAP 2020-11-13 Completed [facility] 00:00:00 [facility] TDAP 2020-11-13 Completed [facility] 00[facility]00:00 [facility] TDAP 2020-11-13 Completed [facility] 00:00:00 [facility] TDAP 2016-04-15 Completed [facility] 00:00:00 [facility] TDAP 2016-04-15 Completed [facility] 00[facility]00:00 [facility] TDAP 2016-04-15 Completed [facility] 00[facility]00:00 [facility] TDAP 2016-04-15 Completed [facility] 00:00:00 [facility] TDAP 2016-04-15 Completed [facility] 00[facility]00:00 [facility] TDAP 2016-04-15 Completed [facility] 00:00:00 [facility] TDAP 2016-04-15 Completed [facility] 00[facility]00:00 [facility] TDAP 2016-04-15 Completed [facility] 00:00:00 [facility] TDAP 2016-04-15 Completed [facility] 00[facility]00:00 [facility] TDAP 2016-04-15 Completed [facility] 00:00:00 [facility] TDAP 2016-04-15 Completed [facility] 00:00:00 [facility] TDAP 2016-04-15 Completed [facility] 00:00:00 [facility] TDAP 2016-04-15 Completed [facility] 00:00:00 [facility] TDAP 2016-04-15 Completed [facility] 00:00:00 [facility] TDAP 2016-04-15 Completed [facility] 00:00:00 [facility] TDAP 2016-04-15 Completed [facility] 00:00:00 [facility] TDAP 2016-04-15 Completed [facility] 00:00:00 [facility] TDAP 2016-04-15 Completed [facility] 00[facility]00:00 [facility] TDAP 2016-04-15 Completed [facility] 00:00:00 [facility] TDAP 2016-04-15 Completed [facility] 00:00:00 [facility] TDAP 2016-04-15 Completed [facility] 00[facility]00:00 [facility] TDAP 2016-04-15 Completed [facility] 00:00:00 [facility] TDAP 2016-04-15 Completed [facility] 00[facility]00:00 [facility] TDAP 2016-04-15 Completed [facility] 00[facility]00:00 [facility] TDAP 2016-04-15 Completed [facility] 00[facility]00:00 [facility] TDAP 2016-04-15 Completed [facility] 00:00:00 [facility] TDAP 2016-04-15 Completed [facility] 00[facility]00:00 [facility] TDAP 2016-04-15 Completed [facility] 00:00:00 [facility] TDAP 2016-04-15 Completed [facility] 00[facility]00:00 [facility] TDAP 2016-04-15 Completed [facility] 00[facility]00:00 [facility] TDAP 2016-04-15 Completed [facility] 00:00:00 [facility] TDAP 2016-04-15 Completed [facility] 00[facility]00:00 [facility] TDAP 2016-04-15 Completed [facility] 00:00:00 [facility] TDAP 2016-04-15 Completed [facility] 00[facility]00:00 [facility] TDAP 2016-04-15 Completed [facility] 00[facility]00:00 [facility] TDAP 2016-04-15 Completed [facility] 00:00:00 [facility] TDAP 2016-04-15 Completed [facility] 00[facility]00:00 [facility] TDAP 2016-04-15 Completed [facility] 00[facility]00:00 [facility] TDAP 2016-04-15 Completed [facility] 00:00:00 [facility] TDAP 2016-04-15 Completed [facility] 00[facility]00:00 [facility] Influenza Virus 2016-02-12 Completed Universit y [facility] IM 3+ YRS 00:00:[address] [facility] Influenza Virus 2016-02-12 Completed [facility]it y of [facility] IM 3+ YRS 00:00:[address] [facility] Influenza Virus 2016-02-12 Completed [facility] y of [facility] IM 3+ YRS 00:00:[address] [facility] Influenza Virus 2016-02-12 Completed [facility]it y of [facility] IM 3+ YRS 00:00:[address] [facility] Influenza Virus 2016-02-12 Completed [facility]it y of [facility] IM 3+ YRS 00:00:[address] [facility] Influenza Virus 2016-02-12 Completed [facility] y of [facility] IM 3+ YRS 00:00:[address] [facility] Influenza Virus 2016-02-12 Completed [facility] y of [facility] IM 3+ YRS 00:00:[address] [facility] Influenza Virus 2016-02-12 Completed [facility] y of [facility] IM 3+ YRS 00:00:[address] [facility] Influenza Virus 2016-02-12 Completed [facility] y of [facility] IM 3+ YRS 00:00:[address] [facility] Influenza Virus 2016-02-12 Completed [facility] y of Vacc[facility] IM 3+ YRS 00:00:[address] [facility] Influenza Virus 2016-02-12 Completed [facility] y of [facility] IM 3+ YRS 00:00:[address] [facility] Influenza Virus 2016-02-12 Completed [facility] y of [facility] IM 3+ YRS 00:00:[address] [facility] Influenza Virus 2016-02-12 Completed [facility] y of [facility] IM 3+ YRS 00:00:[address] [facility] Influenza Virus 2016-02-12 Completed [facility] y of [facility] IM 3+ YRS 00:00:[address] [facility] Influenza Virus 2016-02-12 Completed [facility] y of [facility] IM 3+ YRS 00:00:[address] [facility] Influenza Virus 2016-02-12 Completed [facility] y of Vacc[facility] IM 3+ YRS 00:00:[address] [facility] Influenza Virus 2016-02-12 Completed [facility] y of Vacc[facility] IM 3+ YRS 00:00:[address] [facility] Influenza Virus 2016-02-12 Completed [facility] y of [facility] IM 3+ YRS 00:00:[address] [facility] Influenza Virus 2016-02-12 Completed [facility] y of [facility] IM 3+ YRS 00:00:[address] [facility] Influenza Virus 2016-02-12 Completed [facility] y of [facility] IM 3+ YRS 00:00:[address] [facility] Influenza Virus 2016-02-12 Completed [facility] y of [facility] IM 3+ YRS 00:00:[address] [facility] Influenza Virus 2016-02-12 Completed [facility] y of [facility] IM 3+ YRS 00:00:[address] [facility] Influenza Virus 2016-02-12 Completed [facility] y of Vaccine Quad IM 3+ YRS 00[facility]00:00 [facility] Influenza Virus 2016-02-12 Completed [facility]it y of Vaccine Quad IM 3+ YRS 00:00:[address] [facility] Influenza Virus 2016-02-12 Completed [facility]it y of Vaccine [facility] IM 3+ YRS 00:00:[address] [facility] Influenza Virus 2016-02-12 Completed [facility] y of Vaccine Quad IM 3+ YRS 00:00:00 [facility] Influenza Virus 2016-02-12 Completed [facility] y of Vaccine [facility] IM 3+ YRS 00:00:[address] [facility] Influenza Virus 2016-02-12 Completed [facility] y of Vacc[facility] IM 3+ YRS 00:00:[address] [facility] Influenza Virus 2016-02-12 Completed [facility] y of Vacc[facility] IM 3+ YRS 00:00:[address] [facility] Influenza Virus 2016-02-12 Completed [facility] y of Vacc[facility] IM 3+ YRS 00:00:[address] [facility] Influenza Virus 2016-02-12 Completed [facility] y of Vacc[facility] IM 3+ YRS 00:00:[address] [facility] Influenza Virus 2016-02-12 Completed [facility] y of Vacc[facility] IM 3+ YRS 00:00:[address] [facility] Influenza Virus 2016-02-12 Completed [facility] y of Vacc[facility] IM 3+ YRS 00:00:[address] [facility] Influenza Virus 2016-02-12 Completed [facility] y of Vacc[facility] IM 3+ YRS 00:00:[address] [facility] Influenza Virus 2016-02-12 Completed [facility]it y of Vacc[facility] IM 3+ YRS 00:00:[address] [facility] Influenza Virus 2016-02-12 Completed [facility] y of Vaccine [facility] IM 3+ YRS 00:00:[address] [facility] Influenza Virus 2016-02-12 Completed [facility] y of Vaccine [facility] IM 3+ YRS 00:00:[address] [facility] Influenza Virus 2016-02-12 Completed [facility] y of Vaccine Quad IM 3+ YRS 00:00:[address] [facility] Influenza Virus 2016-02-12 Completed [facility] y of Vaccine Quad IM 3+ YRS 00:00:[address] [facility] Influenza Virus 2016-02-12 Completed [facility] y of Vaccine Quad IM 3+ YRS 00:00:[address] [facility] Influenza Virus 2015-04-10 Completed [facility] y of Vacc[facility] IM 3+ YRS 00:00:[address] [facility] Influenza Virus 2015-04-10 Completed [facility] y of Vaccine [facility] IM 3+ YRS 00:00:[address] [facility] Influenza Virus 2015-04-10 Completed [facility] y of Vaccine [facility] IM 3+ YRS 00:00:[address] [facility] Influenza Virus 2015-04-10 Completed [facility] y of Vaccine [facility] IM 3+ YRS 00:00:[address] [facility] Influenza Virus 2015-04-10 Completed [facility] y of Vaccine [facility] IM 3+ YRS 00:00:[address] [facility] Influenza Virus 2015-04-10 Completed [facility] y of Vacc[facility] IM 3+ YRS 00:00:[address] [facility] Influenza Virus 2015-04-10 Completed [facility] y of Vaccine [facility] IM 3+ YRS 00:00:[address] [facility] Influenza Virus 2015-04-10 Completed [facility] y of Vaccine [facility] IM 3+ YRS 00:00:[address] [facility] Influenza Virus 2015-04-10 Completed [facility] y of Vaccine [facility] IM 3+ YRS 00:00:[address] [facility] Influenza Virus 2015-04-10 Completed [facility] y of Vaccine [facility] IM 3+ YRS 00:00:[address] [facility] Influenza Virus 2015-04-10 Completed [facility] y of Vaccine [facility] IM 3+ YRS 00:00:[address] [facility] Influenza Virus 2015-04-10 Completed [facility] y of Vaccine [facility] IM 3+ YRS 00:00:[address] [facility] Influenza Virus 2015-04-10 Completed [facility] y of Vaccine [facility] IM 3+ YRS 00:00:[address] [facility] Influenza Virus 2015-04-10 Completed [facility] y of Vaccine [facility] IM 3+ YRS 00:00:[address] [facility] Influenza Virus 2015-04-10 Completed [facility] y of Vaccine [facility] IM 3+ YRS 00:00:[address] [facility] Influenza Virus 2015-04-10 Completed [facility] y of Vaccine [facility] IM 3+ YRS 00:00:[address] [facility] Influenza Virus 2015-04-10 Completed [facility] y of Vaccine [facility] IM 3+ YRS 00:00:[address] [facility] Influenza Virus 2015-04-10 Completed [facility] y of Vaccine Quad IM 3+ YRS 00:00:[address] [facility] Influenza Virus 2015-04-10 Completed [facility] y of Vaccine Quad IM 3+ YRS 00:00:[address] [facility] Influenza Virus 2015-04-10 Completed [facility] y of Vaccine Quad IM 3+ YRS 00:00:[address] [facility] Meningococcal 2014-11-22 Completed [facility] Polysaccharide (groups 00:00:00 [facility] Y [facility] W-[facility]) Branch conjugate vaccine (MCV4P) Meningococcal 2014-11-22 Completed [facility] Polysaccharide (groups 00:00:00 [facility] Y [facility] W-[facility]) [facility] conjugate vaccine (MCV4P) Meningococcal 2014-11-22 Completed [facility] Polysaccharide (groups 00:00:00 [facility] Y and W-135) [facility] conjugate vaccine (MCV4P) Meningococcal 2014-11-22 Completed [facility] Polysaccharide (groups 00:00:00 [facility] Y and W-135) [facility] conjugate vaccine (MCV4P) Meningococcal 2014-11-22 Completed [facility] Polysaccharide (groups 00:00:00 [facility] Y and W-135) Branch conjugate vaccine (MCV4P) Meningococcal 2014-11-22 Completed [facility] Polysaccharide (groups 00:00:00 [facility] Y and W-135) Branch conjugate vaccine (MCV4P) Meningococcal 2014-11-22 Completed [facility] Polysaccharide (groups 00:00:00 [facility] Y and W-135) Branch conjugate vaccine (MCV4P) Meningococcal 2014-11-22 Completed [facility] Polysaccharide (groups 00:00:00 [facility] Y and W-135) Branch conjugate vaccine (MCV4P) Meningococcal 2014-11-22 Completed [facility] Polysaccharide (groups 00:00:00 [facility] Y and W-135) Branch conjugate vaccine (MCV4P) Meningococcal 2014-11-22 Completed [facility] Polysaccharide (groups 00:00:00 [facility] Y and W-135) Branch conjugate vaccine (MCV4P) Meningococcal 2014-11-22 Completed [facility] Polysaccharide (groups 00:00:00 [facility] Y and W-135) Branch conjugate vaccine (MCV4P) Meningococcal 2014-11-22 Completed [facility] Polysaccharide (groups 00:00:00 [facility] Y and W-135) Branch conjugate vaccine (MCV4P) Meningococcal 2014-11-22 Completed [facility] Polysaccharide (groups 00:00:00 [facility], Y and W-135) Branch conjugate vaccine (MCV4P) Meningococcal 2014-11-22 Completed [facility] Polysaccharide (groups 00:00:00 [facility], Y and W-135) Branch conjugate vaccine (MCV4P) Meningococcal 2014-11-22 Completed [facility] Polysaccharide (groups 00:00:00 [facility], Y and W-135) Branch conjugate vaccine (MCV4P) Meningococcal 2014-11-22 Completed [facility] Polysaccharide (groups 00:00:00 [facility], Y and W-135) Branch conjugate vaccine (MCV4P) Meningococcal 2014-11-22 Completed [facility] Polysaccharide (groups 00:00:00 [facility], Y and W-135) Branch conjugate vaccine (MCV4P) Meningococcal 2014-11-22 Completed [facility] Polysaccharide (groups 00:00:00 [facility] Y and W-135) Branch conjugate vaccine (MCV4P) Meningococcal 2014-11-22 Completed [facility] Polysaccharide (groups 00:00:00 [facility] Y and W-135) Branch conjugate vaccine (MCV4P) Meningococcal 2014-11-22 Completed [facility] Polysaccharide (groups 00:00:00 [facility] Y and W-135) Branch conjugate vaccine (MCV4P) Meningococcal 2014-11-22 Completed [facility] Polysaccharide (groups 00:00:00 [facility] Y and W-135) Branch conjugate vaccine (MCV4P) Meningococcal 2014-11-22 Completed [facility] Polysaccharide (groups 00:00:00 [facility], Y and W-135) Branch conjugate vaccine (MCV4P) Meningococcal 2014-11-22 Completed [facility] Polysaccharide (groups 00:00:00 [facility], Y and W-135) Branch conjugate vaccine (MCV4P) Meningococcal 2014-11-22 Completed [facility] Polysaccharide (groups 00:00:00 [facility] Y and W-135) Branch conjugate vaccine (MCV4P) Meningococcal 2014-11-22 Completed [facility] Polysaccharide (groups 00:00:00 [facility], Y and W-135) Branch conjugate vaccine (MCV4P) Meningococcal 2014-11-22 Completed [facility] Polysaccharide (groups 00:00:00 [facility], Y and W-135) Branch conjugate vaccine (MCV4P) Meningococcal 2014-11-22 Completed [facility] Polysaccharide (groups 00:00:00 [facility], Y and W-135) Branch conjugate vaccine (MCV4P) Meningococcal 2014-11-22 Completed [facility] Polysaccharide (groups 00:00:00 [facility], Y and W-135) Branch conjugate vaccine (MCV4P) Meningococcal 2014-11-22 Completed [facility] Polysaccharide (groups 00:00:00 [facility] Y and W-135) Branch conjugate vaccine (MCV4P) Meningococcal 2014-11-22 Completed [facility] Polysaccharide (groups 00:00:00 [facility] Y and W-135) Branch conjugate vaccine (MCV4P) Meningococcal 2014-11-22 Completed [facility] Polysaccharide (groups 00:00:00 [facility] Y and W-135) Branch conjugate vaccine (MCV4P) Meningococcal 2014-11-22 Completed [facility] Polysaccharide (groups 00:00:00 [facility], Y and W-135) Branch conjugate vaccine (MCV4P) Meningococcal 2014-11-22 Completed [facility] Polysaccharide (groups 00:00:00 [facility] Y and W-135) Branch conjugate vaccine (MCV4P) Meningococcal 2014-11-22 Completed [facility] Polysaccharide (groups 00:00:00 [facility] Y and W-135) Branch conjugate vaccine (MCV4P) Meningococcal 2014-11-22 Completed [facility] Polysaccharide (groups 00:00:00 [facility] Y and W-135) Branch conjugate vaccine (MCV4P) Meningococcal 2014-11-22 Completed [facility] Polysaccharide (groups 00:00:00 [facility] Y and W-135) Branch conjugate vaccine (MCV4P) Meningococcal 2014-11-22 Completed [facility] Polysaccharide (groups 00:00:00 [facility] Y [facility] W-135) Branch conjugate vaccine (MCV4P) Meningococcal 2014-11-22 Completed [facility] Polysaccharide (groups 00:00:00 [facility], C, Y and W-135) Branch conjugate vaccine (MCV4P) Meningococcal 2014-11-22 Completed [facility] Polysaccharide (groups 00:00:00 [facility], C, Y and W-135) Branch conjugate vaccine (MCV4P) Meningococcal 2014-11-22 Completed [facility] Polysaccharide (groups 00:00:00 [facility], C, Y and W-135) Branch conjugate vaccine (MCV4P) Influenza Virus 2014-03-03 Completed [facility] Vacc[facility] 00:00:00 [facility] Influenza Virus 2014-03-03 Completed [facility] Vacc[facility] IM 00:00:00 [facility] Influenza Virus 2014-03-03 Completed [facility] Vacc[facility] IM 00:00:00 [facility] Influenza Virus 2014-03-03 Completed [facility] IM 00:00:00 [facility] Influenza Virus 2014-03-03 Completed [facility] Vacc[facility] IM 00:00:00 [facility] Influenza Virus 2014-03-03 Completed [facility] IM 00:00:00 [place] [facility] Influenza Virus 2014-03-03 Completed [facility] IM 00:00:00 [place] [facility] Influenza Virus 2014-03-03 Completed [facility] IM 00:00:00 [place] [facility] Influenza Virus 2014-03-03 Completed [facility] IM 00:00:00 [facility] Influenza Virus 2014-03-03 Completed [facility] Vacc[facility] IM 00:00:00 [place] [facility] Influenza Virus 2014-03-03 Completed [facility] Vacc[facility] IM 00:00:00 [place] [facility] Influenza Virus 2014-03-03 Completed [facility] Vacc[facility] IM 00:00:00 [place] [facility] Influenza Virus 2014-03-03 Completed [facility] IM 00:00:00 [place] [facility] Influenza Virus 2014-03-03 Completed [facility] Vacc[facility] IM 00:00:00 [place] [facility] Influenza Virus 2014-03-03 Completed [facility] Vacc[facility] IM 00:00:00 [place] [facility] Influenza Virus 2014-03-03 Completed [facility] Vacc[facility] IM 00:00:00 [place] [facility] Influenza Virus 2014-03-03 Completed [facility] IM 00:00:00 [place] [facility] Influenza Virus 2014-03-03 Completed [facility] Vacc[facility] IM 00:00:00 [facility] Influenza Virus 2014-03-03 Completed [facility] Vacc[facility] IM 00:00:00 [place] [facility] Influenza Virus 2014-03-03 Completed [facility] Vacc[facility] IM 00:00:00 [place] [facility] Influenza Virus 2011-12-19 Completed [facility] y [facility] Vaccine [facility]al 00[facility]00:[facility] Influenza Virus 2011-12-19 Completed [facility] y [facility] Vaccine Nasal 00:00:00 [facility] Influenza Virus 2011-12-19 Completed [facility] Vaccine Nasal 00:00:00 [facility] Influenza Virus 2011-12-19 Completed [facility] Vaccine Nasal 00:00:00 [facility] Influenza Virus 2011-12-19 Completed [facility] Vaccine Nasal 00:00:00 [facility] Influenza Virus 2011-12-19 Completed [facility] Vaccine Nasal 00:00:00 [facility] Influenza Virus 2011-12-19 Completed [facility] y [facility] Vaccine Nasal 00:00:00 [facility] Influenza Virus 2011-12-19 Completed [facility] y [facility] Vaccine Nasal 00:00:00 [facility] Influenza Virus 2011-12-19 Completed [facility] y [facility] Vaccine Nasal 00:00:00 [facility] Influenza Virus 2011-12-19 Completed [facility] y [facility] Vaccine Nasal 00:00:00 [facility] Influenza Virus 2011-12-19 Completed [facility] Vaccine Nasal 00:00:00 [facility] Influenza Virus 2011-12-19 Completed [facility] y of Vaccine Nasal 00:00:00 [facility] Influenza Virus 2011-12-19 Completed [facility] y of Vaccine Nasal 00:00:00 [facility] Influenza Virus 2011-12-19 Completed [facility]it y of Vaccine Nasal 00:00:00 [facility] Influenza Virus 2011-12-19 Completed [facility] y of Vaccine Nasal 00:00:00 [facility] Influenza Virus 2011-12-19 Completed [facility] y [facility] Vaccine Nasal 00:[facility] [facility] Influenza Virus 2011-12-19 Completed [facility] Vaccine Nasal 00:00:00 [facility] Influenza Virus 2011-12-19 Completed [facility] Vaccine Nasal 00:00:00 [facility] Influenza Virus 2011-12-19 Completed [facility] Vaccine Nasal 00:00:00 [facility] Influenza Virus 2011-12-19 Completed [facility] Vaccine Nasal 00:00:00 [facility] HPV 2011-02-13 Completed [facility] 00:00:00 [facility] HPV 2011-02-13 Completed [facility] 00:00:00 [facility] HPV 2011-02-13 Completed [facility] 00:00:00 [facility] HPV 2011-02-13 Completed [facility] 00:00:00 [facility] HPV 2011-02-13 Completed [facility] 00:00:00 [facility] HPV 2011-02-13 Completed [facility] 00:00:00 [facility] HPV 2011-02-13 Completed [facility] 00:00:00 [facility] HPV 2011-02-13 Completed [facility] 00:00:00 [facility] HPV 2011-02-13 Completed [facility] 00:00:00 [facility] HPV 2011-02-13 Completed [facility] 00:00:00 [facility] HPV 2011-02-13 Completed [facility] 00:00:00 [facility] HPV 2011-02-13 Completed [facility] 00:00:00 [facility] HPV 2011-02-13 Completed [facility] 00:00:00 [facility] HPV 2011-02-13 Completed [facility] 00:00:00 [facility] HPV 2011-02-13 Completed [facility] 00:00:00 [facility] HPV 2011-02-13 Completed [facility] 00:00:00 [facility] HPV 2011-02-13 Completed [facility] 00:00:00 [facility] HPV 2011-02-13 Completed [facility] 00:00:00 [facility] HPV 2011-02-13 Completed [facility] 00:00:00 [facility] HPV 2011-02-13 Completed [facility] 00:00:00 [facility] HPV 2011-02-13 Completed [facility] 00:00:00 [facility] HPV 2011-02-13 Completed [facility] 00:00:00 [facility] HPV 2011-02-13 Completed [facility] 00:00:00 [facility] HPV 2011-02-13 Completed [facility] 00:00:00 [facility] HPV 2011-02-13 Completed [facility] 00:00:00 [facility] HPV 2011-02-13 Completed [facility] 00:00:00 [facility] HPV 2011-02-13 Completed [facility] 00:00:00 [facility] HPV 2011-02-13 Completed [facility] 00:00:00 [facility] HPV 2011-02-13 Completed [facility] 00:00:00 [facility] HPV 2011-02-13 Completed [facility] 00:00:00 [facility] HPV 2011-02-13 Completed [facility] 00:00:00 [facility] HPV 2011-02-13 Completed [facility] 00:00:00 [facility] HPV 2011-02-13 Completed [facility] 00:00:00 [facility] HPV 2011-02-13 Completed [facility] 00:00:00 [facility] HPV 2011-02-13 Completed [facility] 00:00:00 [facility] HPV 2011-02-13 Completed [facility] 00:00:00 [facility] HPV 2011-02-13 Completed [facility] 00:00:00 [facility] HPV 2011-02-13 Completed [facility] 00:00:00 [facility] HPV 2011-02-13 Completed [facility] 00:00:00 [facility] HPV 2011-02-13 Completed [facility] 00:00:00 [facility] Influenza Virus 2010-11-08 Completed [facility] Vaccine Nasal 00[facility]00:00 [facility] HEPA,NOS 2010-11-08 Completed [facility] 00:00:00 [facility] HPV 2010-11-08 Completed [facility] 00:00:00 [facility] HEPATITIS A 2010-11-08 Completed [facility] 00:00:00 [facility] Influenza Virus 2010-11-08 Completed [facility] Vaccine Nasal 00:00:00 [facility] HEPA,NOS 2010-11-08 Completed [facility] 00:00:00 [facility] HPV 2010-11-08 Completed [facility] 00:00:00 [facility] HEPATITIS A 2010-11-08 Completed [facility] 00:00:00 [facility] Influenza Virus 2010-11-08 Completed [facility] Vaccine Nasal 00[facility]00:00 [facility] HEPA,NOS 2010-11-08 Completed [facility] 00:00:00 [facility] HPV 2010-11-08 Completed [facility] 00:00:00 [facility] HEPATITIS A 2010-11-08 Completed [facility] 00:00:00 [facility] Influenza Virus 2010-11-08 Completed [facility] Vaccine Nasal 00:00:00 [facility] HEPA,NOS 2010-11-08 Completed [facility] 00:00:00 [facility] HPV 2010-11-08 Completed [facility] 00:00:00 [facility] HEPATITIS A 2010-11-08 Completed [facility] 00:00:00 [facility] Influenza Virus 2010-11-08 Completed [facility] Vaccine Nasal 00:00:00 [facility] HEPA,NOS 2010-11-08 Completed [facility] 00:00:00 [facility] HPV 2010-11-08 Completed [facility] 00:00:00 [facility] HEPATITIS A 2010-11-08 Completed [facility] 00:00:00 [facility] Influenza Virus 2010-11-08 Completed [facility] Vaccine Nasal 00:00:00 [facility] HEPA,NOS 2010-11-08 Completed [facility] 00:00:00 [facility] HPV 2010-11-08 Completed [facility] 00:00:00 [facility] HEPATITIS A 2010-11-08 Completed [facility] 00:00:00 [facility] Influenza Virus 2010-11-08 Completed [facility] Vaccine Nasal 00:00:00 [facility] HEPA,NOS 2010-11-08 Completed [facility] 00:00:00 [facility] HPV 2010-11-08 Completed [facility] 00:00:00 [facility] HEPATITIS A 2010-11-08 Completed [facility] 00:00:00 [facility] Influenza Virus 2010-11-08 Completed [facility] Vaccine Nasal 00:00:00 [facility] HEPA,NOS 2010-11-08 Completed [facility] 00:00:00 [facility] HPV 2010-11-08 Completed [facility] 00:00:00 [facility] HEPATITIS A 2010-11-08 Completed [facility] 00:00:00 [facility] Influenza Virus 2010-11-08 Completed [facility] Vaccine Nasal 00:00:00 [facility] HEPA,NOS 2010-11-08 Completed [facility] 00:00:00 [facility] HPV 2010-11-08 Completed [facility] 00:00:00 [facility] HEPATITIS A 2010-11-08 Completed [facility] 00:00:00 [facility] Influenza Virus 2010-11-08 Completed [facility] Vaccine Nasal 00:00:00 [facility] HEPA,NOS 2010-11-08 Completed [facility] 00:00:00 [facility] HPV 2010-11-08 Completed [facility] 00:00:00 [facility] HEPATITIS A 2010-11-08 Completed [facility] 00:00:00 [facility] Influenza Virus 2010-11-08 Completed [facility] Vaccine Nasal 00:00:00 [facility] HEPA,NOS 2010-11-08 Completed [facility] 00:00:00 [facility] HPV 2010-11-08 Completed [facility] 00:00:00 [facility] HEPATITIS A 2010-11-08 Completed [facility] 00:00:00 [facility] Influenza Virus 2010-11-08 Completed [facility] Vaccine Nasal 00:00:00 [facility] HEPA,NOS 2010-11-08 Completed [facility] 00:00:00 [facility] HPV 2010-11-08 Completed [facility] 00:00:00 [facility] HEPATITIS A 2010-11-08 Completed [facility] 00:00:00 [facility] Influenza Virus 2010-11-08 Completed [facility] Vaccine Nasal 00:00:00 [facility] HEPA,NOS 2010-11-08 Completed [facility] 00:00:00 [facility] HPV 2010-11-08 Completed [facility] 00:00:00 [facility] HEPATITIS A 2010-11-08 Completed [facility] 00:00:00 [facility] Influenza Virus 2010-11-08 Completed [facility] Vaccine Nasal 00:00:00 [facility] HEPA,NOS 2010-11-08 Completed [facility] 00:00:00 [facility] HPV 2010-11-08 Completed [facility] 00:00:00 [facility] HEPATITIS A 2010-11-08 Completed [facility] 00:00:00 [facility] Influenza Virus 2010-11-08 Completed [facility] Vaccine Nasal 00:00:00 [facility] HEPA,NOS 2010-11-08 Completed [facility] 00:00:00 [facility] HPV 2010-11-08 Completed [facility] 00:00:00 [facility] HEPATITIS A 2010-11-08 Completed [facility] 00[facility]00:00 [facility] Influenza Virus 2010-11-08 Completed [facility] Vaccine Nasal 00:00:00 [facility] HEPA,NOS 2010-11-08 Completed [facility] 00:00:00 [facility] HPV 2010-11-08 Completed [facility] 00:00:00 [facility] HEPATITIS A 2010-11-08 Completed [facility] 00:00:00 [facility] Influenza Virus 2010-11-08 Completed [facility] Vaccine Nasal 00:00:00 [facility] HEPA,NOS 2010-11-08 Completed [facility] 00:00:00 [facility] HPV 2010-11-08 Completed [facility] 00:00:00 [facility] HEPATITIS A 2010-11-08 Completed [facility] 00:00:00 [facility] HPV 2010-11-08 Completed [facility] 00:00:00 [facility] HEPATITIS A 2010-11-08 Completed [facility] 00:00:00 [facility] HPV 2010-11-08 Completed [facility] 00:00:00 [facility] HEPATITIS A 2010-11-08 Completed [facility] 00:00:00 [facility] HPV 2010-11-08 Completed [facility] 00:00:00 [facility] HEPATITIS A 2010-11-08 Completed [facility] 00:00:00 [facility] HPV 2010-11-08 Completed [facility] 00:00:00 [facility] HEPATITIS A 2010-11-08 Completed [facility] 00:00:00 [facility] HPV 2010-11-08 Completed [facility] 00:00:00 [facility] HEPATITIS A 2010-11-08 Completed [facility] 00:00:00 [facility] HPV 2010-11-08 Completed [facility] 00:00:00 [facility] HEPATITIS A 2010-11-08 Completed [facility] 00:00:00 [facility] HPV 2010-11-08 Completed [facility] 00:00:00 [facility] HEPATITIS A 2010-11-08 Completed [facility] 00:00:00 [facility] HPV 2010-11-08 Completed [facility] 00:00:00 [facility] HEPATITIS A 2010-11-08 Completed [facility] 00:00:00 [facility] HPV 2010-11-08 Completed [facility] 00[facility]00:00 [facility] HEPATITIS A 2010-11-08 Completed [facility] 00:00:00 [facility] HPV 2010-11-08 Completed [facility] 00:00:00 [facility] HEPATITIS A 2010-11-08 Completed [facility] 00:00:00 [facility] HPV 2010-11-08 Completed [facility] 00:00:00 [facility] HEPATITIS A 2010-11-08 Completed [facility] 00:00:00 [facility] HPV 2010-11-08 Completed [facility] 00:00:00 [facility] HEPATITIS A 2010-11-08 Completed [facility] 00:00:00 [facility] HPV 2010-11-08 Completed [facility] 00:00:00 [facility] HEPATITIS A 2010-11-08 Completed [facility] 00:00:00 [facility] HPV 2010-11-08 Completed [facility] 00:00:00 [facility] HEPATITIS A 2010-11-08 Completed [facility] 00:00:00 [facility] HPV 2010-11-08 Completed [facility] 00:00:00 [facility] HEPATITIS A 2010-11-08 Completed [facility] 00:00:00 [facility] HPV 2010-11-08 Completed [facility] 00:00:00 [facility] HEPATITIS A 2010-11-08 Completed [facility] 00:00:00 [facility] HPV 2010-11-08 Completed [facility] 00:00:00 [facility] HEPATITIS A 2010-11-08 Completed [facility] 00:00:00 [facility] HPV 2010-11-08 Completed [facility] 00:00:00 [facility] HEPATITIS A 2010-11-08 Completed [facility] 00:00:00 [facility] HPV 2010-11-08 Completed [facility] 00:00:00 [facility] HEPATITIS A 2010-11-08 Completed [facility] 00:00:00 [facility] HPV 2010-11-08 Completed [facility] 00:00:00 [facility] HEPATITIS A 2010-11-08 Completed [facility] 00:00:00 [facility] Influenza Virus 2010-11-08 Completed [facility] Vaccine Nasal 00:00:00 [facility] HEPA,NOS 2010-11-08 Completed [facility] 00:00:00 [facility] HPV 2010-11-08 Completed [facility] 00:00:00 [facility] HEPATITIS A 2010-11-08 Completed [facility] 00:00:00 [facility] Influenza Virus 2010-11-08 Completed [facility] Vaccine Nasal 00:00:00 [facility] HEPA,NOS 2010-11-08 Completed [facility] 00[facility]00:00 [facility] HPV 2010-11-08 Completed [facility] 00:00:00 [facility] HEPATITIS A 2010-11-08 Completed [facility] 00:00:00 [facility] Influenza Virus 2010-11-08 Completed [facility] Vaccine Nasal 00:00:00 [facility] HEPA,NOS 2010-11-08 Completed [facility] 00:00:00 [facility] HPV 2010-11-08 Completed [facility] 00:00:00 [facility] HEPATITIS A 2010-11-08 Completed [facility] 00:00:00 [facility] HPV 2010-09-20 Completed [facility] 00:00:00 [facility] HPV 2010-09-20 Completed [facility] 00:00:00 [facility] HPV 2010-09-20 Completed [facility] 00:00:00 [facility] HPV 2010-09-20 Completed [facility] 00:00:00 [facility] HPV 2010-09-20 Completed [facility] 00:00:00 [facility] HPV 2010-09-20 Completed [facility] 00:00:00 [facility] HPV 2010-09-20 Completed [facility] 00:00:00 [facility] HPV 2010-09-20 Completed [facility] 00:00:00 [facility] HPV 2010-09-20 Completed [facility] 00:00:00 [facility] HPV 2010-09-20 Completed [facility] 00:00:00 [facility] HPV 2010-09-20 Completed [facility] 00:00:00 [facility] HPV 2010-09-20 Completed [facility] 00:00:00 [facility] HPV 2010-09-20 Completed [facility] 00:00:00 [facility] HPV 2010-09-20 Completed [facility] 00:00:00 [facility] HPV 2010-09-20 Completed [facility] 00:00:00 [facility] HPV 2010-09-20 Completed [facility] 00:00:00 [facility] HPV 2010-09-20 Completed [facility] 00:00:00 [facility] HPV 2010-09-20 Completed [facility] 00:00:00 [facility] HPV 2010-09-20 Completed [facility] 00:00:00 [facility] HPV 2010-09-20 Completed [facility] 00:00:00 [facility] Influenza Virus 2010-02-28 Completed [facility] Vaccine 00:00:00 [facility] Influenza Virus 2010-02-28 Completed [facility] Vaccine 00:00:00 [facility] Influenza Virus 2010-02-28 Completed [facility] of Vaccine 00:00:00 [facility] Influenza Virus 2010-02-28 Completed [facility] of Vaccine 00:00:00 [facility] Influenza Virus 2010-02-28 Completed [facility] of Vaccine 00:00:00 [facility] Influenza Virus 2010-02-28 Completed [facility] of Vaccine 00:00:00 [facility] Influenza Virus 2010-02-28 Completed [facility] of Vaccine 00:00:00 [facility] Influenza Virus 2010-02-28 Completed [facility] of Vaccine 00:00:00 [facility] Influenza Virus 2010-02-28 Completed [facility] of Vaccine 00:00:00 [facility] Influenza Virus 2010-02-28 Completed [facility] of Vaccine 00:00:00 [facility] Influenza Virus 2010-02-28 Completed [facility] of Vaccine 00:00:00 [facility] Influenza Virus 2010-02-28 Completed [facility] of Vaccine 00:00:00 [facility] Influenza Virus 2010-02-28 Completed [facility] of Vaccine 00:00:00 [facility] Influenza Virus 2010-02-28 Completed [facility] of Vaccine 00:00:00 [facility] Influenza Virus 2010-02-28 Completed [facility] Vaccine 00:00:00 [facility] Influenza Virus 2010-02-28 Completed [facility] of Vaccine 00:00:00 [facility] Influenza Virus 2010-02-28 Completed [facility] of Vaccine 00:00:00 [facility] Influenza Virus 2010-02-28 Completed [facility] of Vaccine 00:00:00 [facility] Influenza Virus 2010-02-28 Completed [facility] of Vaccine 00:00:00 [facility] Influenza Virus 2010-02-28 Completed [facility] of Vaccine 00:00:00 [facility] Influenza Virus 2010-02-28 Completed [facility] of Vaccine 00:00:00 [facility] Flu Trivalent 2010-02-28 Completed [facility] 00:00:00 [facility] Influenza Virus 2010-02-28 Completed [facility] of Vaccine 00:00:00 [facility] Flu Trivalent 2010-02-28 Completed [facility] 00:00:00 [facility] Influenza Virus 2010-02-28 Completed [facility] of Vaccine 00:00:00 [facility] Flu Trivalent 2010-02-28 Completed [facility] 00:00:00 [facility] Influenza Virus 2010-02-28 Completed [facility] of Vaccine 00:00:00 [facility] Flu Trivalent 2010-02-28 Completed [facility] 00:00:00 [facility] Influenza Virus 2010-02-28 Completed [facility] of Vaccine 00:00:00 [facility] Flu Trivalent 2010-02-28 Completed [facility] 00:00:00 [facility] Influenza Virus 2010-02-28 Completed [facility] of Vaccine 00:00:00 [facility] Flu Trivalent 2010-02-28 Completed [facility] 00:00:00 [facility] Influenza Virus 2010-02-28 Completed [facility] of Vaccine 00:00:00 [facility] Flu Trivalent 2010-02-28 Completed [facility] 00:00:00 [facility] Influenza Virus 2010-02-28 Completed [facility] of Vaccine 00:00:00 [facility] Flu Trivalent 2010-02-28 Completed [facility] 00:00:00 [facility] Influenza Virus 2010-02-28 Completed [facility] of Vaccine 00:00:00 [facility] Flu Trivalent 2010-02-28 Completed [facility] 00:00:00 [facility] Influenza Virus 2010-02-28 Completed [facility] of Vaccine 00:00:00 [facility] Flu Trivalent 2010-02-28 Completed [facility] 00:00:00 [facility] Influenza Virus 2010-02-28 Completed [facility] of Vaccine 00:00:00 [facility] Flu Trivalent 2010-02-28 Completed [facility] 00:00:00 [facility] Influenza Virus 2010-02-28 Completed [facility] of Vaccine 00:00:00 [facility] Flu Trivalent 2010-02-28 Completed [facility] 00:00:00 [facility] Influenza Virus 2010-02-28 Completed [facility] of Vaccine 00:00:00 [facility] Flu Trivalent 2010-02-28 Completed [facility] 00:00:00 [facility] Influenza Virus 2010-02-28 Completed [facility] of Vaccine 00:00:00 [facility] Flu Trivalent 2010-02-28 Completed [facility] 00:00:00 [facility] Influenza Virus 2010-02-28 Completed [facility] of Vaccine 00:00:00 [facility] Flu Trivalent 2010-02-28 Completed [facility] 00:00:00 [facility] Influenza Virus 2010-02-28 Completed [facility] of Vaccine 00:00:00 [facility] Flu Trivalent 2010-02-28 Completed [facility] 00:00:00 [facility] Influenza Virus 2010-02-28 Completed [facility] of Vaccine 00:00:00 [facility] Flu Trivalent 2010-02-28 Completed [facility] 00:00:00 [facility] Influenza Virus 2010-02-28 Completed [facility] of Vaccine 00:00:00 [facility] Flu Trivalent 2010-02-28 Completed [facility] 00:00:00 [facility] Influenza Virus 2010-02-28 Completed [facility] of Vaccine 00:00:00 [facility] Flu Trivalent 2010-02-28 Completed [facility] 00:00:00 [facility] Influenza Virus 2010-02-28 Completed [facility] of Vaccine 00:00:00 [facility] Flu Trivalent 2010-02-28 Completed [facility] 00:00:00 [facility] HPV 2009-09-20 Completed [facility] 00:00:00 [facility] HEPATITIS A 2009-09-20 Completed [facility] 00:00:00 [facility] Meningococcal 2009-09-20 Completed [facility] of Polysaccharide (groups 00:00:00 [facility] and [facility]) Branch conjugate vaccine ([id number]) HPV 2009-09-20 Completed [facility] 00:00:00 [facility] [facility] 2009[facility]-20 Completed [facility] 00:00:00 [facility] Meningococcal 2009-09-20 Completed [facility] of Polysaccharide (groups 00:00:00 [facility], C, Y and W-135) Branch conjugate vaccine (MCV4P) HPV 2009-09-20 Completed [facility] 00:00:00 [facility] HEPATITIS A 2009-09-20 Completed [facility] 00:00:00 [facility] Meningococcal 2009-09-20 Completed [facility] Polysaccharide (groups 00:00:00 [facility], C, Y and W-135) Branch conjugate vaccine (MCV4P) HPV 2009-09-20 Completed [facility] 00:00:00 [facility] HEPATITIS A 2009-09-20 Completed [facility] 00:00:00 [facility] Meningococcal 2009-09-20 Completed [facility] Polysaccharide (groups 00:00:00 [facility], C, Y and W-135) Branch conjugate vaccine (MCV4P) HPV 2009-09-20 Completed [facility] 00:00:00 [facility] HEPATITIS A 2009-09-20 Completed [facility] 00:00:00 [facility] Meningococcal 2009-09-20 Completed [facility] Polysaccharide (groups 00:00:00 [facility], C, Y and W-135) Branch conjugate vaccine (MCV4P) HPV 2009-09-20 Completed [facility] 00:00:00 [facility] HEPATITIS A 2009-09-20 Completed [facility] 00:00:00 [facility] Meningococcal 2009-09-20 Completed [facility] Polysaccharide (groups 00:00:00 [facility], C, Y and W-135) Branch conjugate vaccine (MCV4P) HPV 2009-09-20 Completed [facility] 00:00:00 [facility] HEPATITIS A 2009-09-20 Completed [facility] 00:00:00 [facility] Meningococcal 2009-09-20 Completed [facility] Polysaccharide (groups 00:00:00 [facility], C, Y and W-135) Branch conjugate vaccine (MCV4P) HPV 2009-09-20 Completed [facility] 00:00:00 [facility] HEPATITIS A 2009-09-20 Completed [facility] 00:00:00 [facility] Meningococcal 2009-09-20 Completed [facility] Polysaccharide (groups 00:00:00 [facility], C, Y and W-135) Branch conjugate vaccine (MCV4P) HPV 2009-09-20 Completed [facility] 00:00:00 [facility] HEPATITIS A 2009-09-20 Completed [facility] 00:00:00 [facility] Meningococcal 2009-09-20 Completed [facility] Polysaccharide (groups 00:00:00 [facility], C, Y and W-135) Branch conjugate vaccine (MCV4P) HPV 2009-09-20 Completed [facility] 00:00:00 [facility] HEPATITIS A 2009-09-20 Completed [facility] 00:00:00 [facility] Meningococcal 2009-09-20 Completed [facility] Polysaccharide (groups 00:00:00 [facility], C, Y and W-135) Branch conjugate vaccine (MCV4P) HPV 2009-09-20 Completed [facility] 00:00:00 [facility] HEPATITIS A 2009-09-20 Completed [facility] 00:00:00 [facility] Meningococcal 2009-09-20 Completed [facility] Polysaccharide (groups 00:00:00 [facility], C, Y and W-135) Branch conjugate vaccine (MCV4P) HPV 2009-09-20 Completed [facility] 00:00:00 [facility] HEPATITIS A 2009-09-20 Completed [facility] 00:00:00 [facility] Meningococcal 2009-09-20 Completed [facility] Polysaccharide (groups 00:00:00 [facility], C, Y and W-135) Branch conjugate vaccine (MCV4P) HPV 2009-09-20 Completed [facility] 00:00:00 [facility] HEPATITIS A 2009-09-20 Completed [facility] 00:00:00 [facility] Meningococcal 2009-09-20 Completed [facility] Polysaccharide (groups 00:00:00 [facility], C, Y and W-135) Branch conjugate vaccine (MCV4P) HPV 2009-09-20 Completed [facility] 00:00:00 [facility] HEPATITIS A 2009-09-20 Completed [facility] 00:00:00 [facility] Meningococcal 2009-09-20 Completed [facility] Polysaccharide (groups 00:00:00 [facility], C, Y and W-135) Branch conjugate vaccine (MCV4P) HPV 2009-09-20 Completed [facility] 00:00:00 [facility] HEPATITIS A 2009-09-20 Completed [facility] 00:00:00 [facility] Meningococcal 2009-09-20 Completed [facility] Polysaccharide (groups 00:00:00 [facility], C, Y and W-135) Branch conjugate vaccine (MCV4P) HPV 2009-09-20 Completed [facility] 00:00:00 [facility] HEPATITIS A 2009-09-20 Completed [facility] 00:00:00 [facility] Meningococcal 2009-09-20 Completed [facility] Polysaccharide (groups 00:00:00 [facility], C, Y and W-135) Branch conjugate vaccine (MCV4P) HPV 2009-09-20 Completed [facility] 00:00:00 [facility] HEPATITIS A 2009-09-20 Completed [facility] 00:00:00 [facility] Meningococcal 2009-09-20 Completed [facility] Polysaccharide (groups 00:00:00 [facility], C, Y and W-135) Branch conjugate vaccine (MCV4P) HPV 2009-09-20 Completed [facility] 00:00:00 [facility] HEPATITIS A 2009-09-20 Completed [facility] 00:00:00 [facility] Meningococcal 2009-09-20 Completed [facility] Polysaccharide (groups 00:00:00 [facility], C, Y and W-135) Branch conjugate vaccine (MCV4P) HPV 2009-09-20 Completed [facility] 00:00:00 [facility] HEPATITIS A 2009-09-20 Completed [facility] 00:00:00 [facility] Meningococcal 2009-09-20 Completed [facility] Polysaccharide (groups 00:00:00 [facility], C, Y and W-135) Branch conjugate vaccine (MCV4P) HPV 2009-09-20 Completed [facility] 00:00:00 [facility] HEPATITIS A 2009-09-20 Completed [facility] 00:00:00 [facility] Meningococcal 2009-09-20 Completed [facility] Polysaccharide (groups 00:00:00 [facility], C, Y and W-135) Branch conjugate vaccine (MCV4P) HPV 2009-09-20 Completed [facility] 00:00:00 [facility] HEPATITIS A 2009-09-20 Completed [facility] 00:00:00 [facility] Meningococcal 2009-09-20 Completed [facility] Polysaccharide (groups 00:00:00 [facility], C, Y and W-135) Branch conjugate vaccine (MCV4P) HEPA,NOS 2009-09-20 Completed [facility] 00:00:00 [facility] HPV 2009-09-20 Completed [facility] 00:00:00 [facility] HEPATITIS A 2009-09-20 Completed [facility] 00:00:00 [facility] Meningococcal 2009-09-20 Completed [facility] Polysaccharide (groups 00:00:00 [facility], C, Y and W-135) Branch conjugate vaccine (MCV4P) HEPA,NOS 2009-09-20 Completed [facility] 00:00:00 [facility] HPV 2009-09-20 Completed [facility] 00:00:00 [facility] HEPATITIS A 2009-09-20 Completed [facility] 00:00:00 [facility] Meningococcal 2009-09-20 Completed [facility] Polysaccharide (groups 00:00:00 [facility], C, Y and W-135) Branch conjugate vaccine (MCV4P) HEPA,NOS 2009-09-20 Completed [facility] 00:00:00 [facility] HPV 2009-09-20 Completed [facility] 00:00:00 [facility] HEPATITIS A 2009-09-20 Completed [facility] 00:00:00 [facility] Meningococcal 2009-09-20 Completed [facility] Polysaccharide (groups 00:00:00 [facility], C, Y and W-135) Branch conjugate vaccine (MCV4P) HEPA,NOS 2009-09-20 Completed [facility] 00:00:00 [facility] HPV 2009-09-20 Completed [facility] 00:00:00 [facility] HEPATITIS A 2009-09-20 Completed [facility] 00:00:00 [facility] Meningococcal 2009-09-20 Completed [facility] Polysaccharide (groups 00:00:00 [facility], C, Y and W-135) Branch conjugate vaccine (MCV4P) HEPA,NOS 2009-09-20 Completed [facility] 00:00:00 [facility] HPV 2009-09-20 Completed [facility] 00:00:00 [facility] HEPATITIS A 2009-09-20 Completed [facility] 00:00:00 [facility] Meningococcal 2009-09-20 Completed [facility] Polysaccharide (groups 00:00:00 [facility], C, Y and W-135) Branch conjugate vaccine (MCV4P) HEPA,NOS 2009-09-20 Completed [facility] 00:00:00 [facility] HPV 2009-09-20 Completed [facility] 00:00:00 [facility] HEPATITIS A 2009-09-20 Completed [facility] 00:00:00 [facility] Meningococcal 2009-09-20 Completed [facility] Polysaccharide (groups 00:00:00 [facility], C, Y and W-135) Branch conjugate vaccine (MCV4P) HEPA,NOS 2009-09-20 Completed [facility] 00:00:00 [facility] HPV 2009-09-20 Completed [facility] 00:00:00 [facility] HEPATITIS A 2009-09-20 Completed [facility] 00:00:00 [facility] Meningococcal 2009-09-20 Completed [facility] Polysaccharide (groups 00:00:00 [facility], C, Y and W-135) Branch conjugate vaccine (MCV4P) HEPA,NOS 2009-09-20 Completed [facility] 00:00:00 [facility] HPV 2009-09-20 Completed [facility] 00:00:00 [facility] HEPATITIS A 2009-09-20 Completed [facility] 00:00:00 [facility] Meningococcal 2009-09-20 Completed [facility] Polysaccharide (groups 00:00:00 [facility], C, Y and W-135) Branch conjugate vaccine (MCV4P) HEPA,NOS 2009-09-20 Completed [facility] 00:00:00 [facility] HPV 2009-09-20 Completed [facility] 00:00:00 [facility] HEPATITIS A 2009-09-20 Completed [facility] 00:00:00 [facility] Meningococcal 2009-09-20 Completed [facility] Polysaccharide (groups 00:00:00 [facility], C, Y and W-135) Branch conjugate vaccine (MCV4P) HEPA,NOS 2009-09-20 Completed [facility] 00:00:00 [facility] HPV 2009-09-20 Completed [facility] 00:00:00 [facility] HEPATITIS A 2009-09-20 Completed [facility] 00:00:00 [facility] Meningococcal 2009-09-20 Completed [facility] Polysaccharide (groups 00:00:00 [facility], C, Y and W-135) Branch conjugate vaccine (MCV4P) HEPA,NOS 2009-09-20 Completed [facility] 00:00:00 [facility] HPV 2009-09-20 Completed [facility] 00:00:00 [facility] HEPATITIS A 2009-09-20 Completed [facility] 00:00:00 [facility] Meningococcal 2009-09-20 Completed [facility] Polysaccharide (groups 00:00:00 [facility], C, Y and W-135) Branch conjugate vaccine (MCV4P) HEPA,NOS 2009-09-20 Completed [facility] 00:00:00 [facility] HPV 2009-09-20 Completed [facility] 00:00:00 [facility] HEPATITIS A 2009-09-20 Completed [facility] 00:00:00 [facility] Meningococcal 2009-09-20 Completed [facility] Polysaccharide (groups 00:00:00 [facility], C, Y and W-135) Branch conjugate vaccine (MCV4P) HEPA,NOS 2009-09-20 Completed [facility] 00:00:00 [facility] HPV 2009-09-20 Completed [facility] 00:00:00 [facility] HEPATITIS A 2009-09-20 Completed [facility] 00:00:00 [facility] Meningococcal 2009-09-20 Completed [facility] Polysaccharide (groups 00:00:00 [facility], C, Y and W-135) Branch conjugate vaccine (MCV4P) HEPA,NOS 2009-09-20 Completed [facility] 00:00:00 [facility] HPV 2009-09-20 Completed [facility] 00:00:00 [facility] HEPATITIS A 2009-09-20 Completed [facility] 00:00:00 [facility] Meningococcal 2009-09-20 Completed [facility] Polysaccharide (groups 00:00:00 [facility], C, Y and W-135) Branch conjugate vaccine (MCV4P) HEPA,NOS 2009-09-20 Completed [facility] 00:00:00 [facility] HPV 2009-09-20 Completed [facility] 00:00:00 [facility] HEPATITIS A 2009-09-20 Completed [facility] 00:00:00 [facility] Meningococcal 2009-09-20 Completed [facility] Polysaccharide (groups 00:00:00 [facility], C, Y and W-135) Branch conjugate vaccine (MCV4P) HEPA,NOS 2009-09-20 Completed [facility] 00:00:00 [facility] HPV 2009-09-20 Completed [facility] 00:00:00 [facility] HEPATITIS A 2009-09-20 Completed [facility] 00:00:00 [facility] Meningococcal 2009-09-20 Completed [facility] Polysaccharide (groups 00:00:00 [facility], C, Y and W-135) Branch conjugate vaccine (MCV4P) HEPA,NOS 2009-09-20 Completed [facility] 00:00:00 [facility] HPV 2009-09-20 Completed [facility] 00:00:00 [facility] HEPATITIS A 2009-09-20 Completed [facility] 00:00:00 [facility] Meningococcal 2009-09-20 Completed [facility] Polysaccharide (groups 00:00:00 [facility], C, Y and W-135) Branch conjugate vaccine (MCV4P) HEPA,NOS 2009-09-20 Completed [facility] 00:00:00 [facility] HPV 2009-09-20 Completed [facility] 00:00:00 [facility] HEPATITIS A 2009-09-20 Completed [facility] 00:00:00 [facility] Meningococcal 2009-09-20 Completed [facility] Polysaccharide (groups 00:00:00 [facility], C, Y and W-135) Branch conjugate vaccine (MCV4P) HEPA,NOS 2009-09-20 Completed [facility] 00:00:00 [facility] HPV 2009-09-20 Completed [facility] 00:00:00 [facility] HEPATITIS A 2009-09-20 Completed [facility] 00:00:00 [facility] Meningococcal 2009-09-20 Completed [facility] of Polysaccharide (groups 00:00:00 [facility] A, C, Y and [facility]-135[facility] conjugate vaccine (MCV4P) HEPA,NOS 2009-09-20 Completed [facility] 00:00:00 [facility] Varicella 2009-06-30 Completed University of (varivax)(chicken pox) 00:00:[address] [facility] Varicella 2009-06-30 Completed [facility] of (varivax)(chicken pox) 00:00:[address] [facility] Varicella 2009-06-30 Completed [facility] of (varivax)(chicken pox) 00:00:[address] [facility] Varicella 2009-06-30 Completed [facility] of (varivax)(chicken pox) 00:00:[address] [facility] Varicella 2009-06-30 Completed [facility] of (varivax)(chicken pox) 00:00:[address] [facility] Varicella 2009-06-30 Completed [facility] of (varivax)(chicken pox) 00:00:[address] [facility] Varicella 2009-06-30 Completed [facility] of (varivax)(chicken pox) 00:00:[address] [facility] Varicella 2009-06-30 Completed [facility] of (varivax)(chicken pox) 00:00:[address] [facility] Varicella 2009-06-30 Completed [facility] of (varivax)(chicken pox) 00:00:[address] [facility] Varicella 2009-06-30 Completed [facility] of (varivax)(chicken pox) 00:00:[address] [facility] Varicella 2009-06-30 Completed [facility] of (varivax)(chicken pox) 00:00:[address] [facility] Varicella 2009-06-30 Completed [facility] of (varivax)(chicken pox) 00:00:[address] [facility] Varicella 2009-06-30 Completed [facility] of (varivax)(chicken pox) 00:00:[address] [facility] Varicella 2009-06-30 Completed [facility] of (varivax)(chicken pox) 00:00:[address] [facility] Varicella 2009-06-30 Completed [facility] of (varivax)(chicken pox) 00:00:[address] [facility] Varicella 2009-06-30 Completed [facility] of (varivax)(chicken pox) 00:00:[address] [facility] Varicella 2009-06-30 Completed [facility] of (varivax)(chicken pox) 00:00:[address] [facility] Varicella 2009-06-30 Completed [facility] of (varivax)(chicken pox) 00:00:[address] [facility] Varicella 2009-06-30 Completed [facility] of (varivax)(chicken pox) 00:00:[address] [facility] Varicella 2009-06-30 Completed [facility] of (varivax)(chicken pox) 00:00:[address] [facility] Varicella 2009-06-30 Completed [facility] of (varivax)(chicken pox) 00:00:[address] [facility] Varicella 2009-06-30 Completed [facility] of (varivax)(chicken pox) 00:00:[address] [facility] Varicella 2009-06-30 Completed [facility] of (varivax)(chicken pox) 00:00:[address] [facility] Varicella 2009-06-30 Completed [facility] of (varivax)(chicken pox) 00:00:[address] [facility] Varicella 2009-06-30 Completed [facility] of (varivax)(chicken pox) 00:00:[address] [facility] Varicella 2009-06-30 Completed [facility] of (varivax)(chicken pox) 00:00:[address] [facility] Varicella 2009-06-30 Completed [facility] of (varivax)(chicken pox) 00:00:[address] [facility] Varicella 2009-06-30 Completed [facility] of (varivax)(chicken pox) 00:00:[address] [facility] Varicella 2009-06-30 Completed [facility] of (varivax)(chicken pox) 00:00:[address] [facility] Varicella 2009-06-30 Completed [facility] of (varivax)(chicken pox) 00:00:[address] [facility] Varicella 2009-06-30 Completed [facility] of (varivax)(chicken pox) 00:00:[address] [facility] Varicella 2009-06-30 Completed [facility] of (varivax)(chicken pox) 00:00:[address] [facility] Varicella 2009-06-30 Completed [facility] of (varivax)(chicken pox) 00:00:[address] [facility] Varicella 2009-06-30 Completed [facility] of (varivax)(chicken pox) 00:00:[address] [facility] Varicella 2009-06-30 Completed [facility] of (varivax)(chicken pox) 00:00:[address] [facility] Varicella 2009-06-30 Completed [facility] of (varivax)(chicken pox) 00:00:[address] [facility] Varicella 2009-06-30 Completed [facility] of (varivax)(chicken pox) 00:00:[address] [facility] Varicella 2009-06-30 Completed [facility] of (varivax)(chicken pox) 00:00:[address] [facility] Varicella 2009-06-30 Completed [facility] of (varivax)(chicken pox) 00:00:[address] [facility] Varicella 2009-06-30 Completed [facility] of (varivax)(chicken pox) 00:00:[address] [facility] Investigational H1N1 2009-05-28 Completed Univ ersity of Influenza VACCINE 00:00:[address] [facility] [place] [place] Influenza Virus 2009-05-28 Completed Universit y of Vaccine 00:00:00 [facility] Investigational H1N1 2009-05-28 Completed Univ ersity of Influenza VACCINE 00:00:[address] [facility] [place] Influenza Virus 2009-05-28 Completed Universit y of Vaccine 00:00:00 [facility] Investigational H1N1 2009-05-28 Completed Univ ersity of Influenza VACCINE 00:00:[address] [facility] [place] Influenza Virus 2009-05-28 Completed Universit y of Vaccine 00:00:00 [facility] Investigational H1N1 2009-05-28 Completed Univ ersity of Influenza VACCINE 00:00:[address] [facility] [place] Influenza Virus 2009-05-28 Completed Universit y of Vaccine 00:00:00 [facility] Investigational H1N1 2009-05-28 Completed Univ ersity of Influenza VACCINE 00:00:[address] [facility] [place] Influenza Virus 2009-05-28 Completed Universit y of Vaccine 00:00:00 [facility] Investigational H1N1 2009-05-28 Completed Univ ersity of Influenza VACCINE 00:00:[address] [facility] [place] Influenza Virus 2009-05-28 Completed Universit y of Vaccine 00:00:00 [facility] Investigational H1N1 2009-05-28 Completed Univ ersity of Influenza VACCINE 00:00:[address] [facility] [place] Influenza Virus 2009-05-28 Completed Universit y of Vaccine 00:00:00 [facility] Investigational H1N1 2009-05-28 Completed Univ ersity of Influenza VACCINE 00:00:[address] [facility] [place] Influenza Virus 2009-05-28 Completed Universit y of Vaccine 00:00:00 [facility] Investigational H1N1 2009-05-28 Completed Univ ersity of Influenza VACCINE 00:00:[address] [facility] [place] Influenza Virus 2009-05-28 Completed Universit y of Vaccine 00:00:00 [facility] Investigational H1N1 2009-05-28 Completed Univ ersity of Influenza VACCINE 00:00:[address] [facility] [place] Influenza Virus 2009-05-28 Completed Universit y of Vaccine 00:00:00 [facility] Investigational H1N1 2009-05-28 Completed Univ ersity of Influenza VACCINE 00:00:[address] [facility] [place] Influenza Virus 2009-05-28 Completed Universit y of Vaccine 00:00:00 [facility] Investigational H1N1 2009-05-28 Completed Univ ersity of Influenza VACCINE 00:00:[address] [facility] [place] Influenza Virus 2009-05-28 Completed Universit y of Vaccine 00:00:00 [facility] Investigational H1N1 2009-05-28 Completed Univ ersity of Influenza VACCINE 00:00:[address] [facility] [place] Influenza Virus 2009-05-28 Completed Universit y of Vaccine 00:00:00 [facility] Investigational H1N1 2009-05-28 Completed Univ ersity of Influenza VACCINE 00:00:[address] [facility] [place] Influenza Virus 2009-05-28 Completed Universit y of Vaccine 00:00:00 [facility] Investigational H1N1 2009-05-28 Completed Univ ersity of Influenza VACCINE 00:00:[address] [facility] [place] Influenza Virus 2009-05-28 Completed Universit y of Vaccine 00:00:00 [facility] Investigational H1N1 2009-05-28 Completed Univ ersity of Influenza VACCINE 00:00:[address] [facility] [place] Influenza Virus 2009-05-28 Completed Universit y of Vaccine 00:00:00 [facility] Investigational H1N1 2009-05-28 Completed Univ ersity of Influenza VACCINE 00:00:[address] [facility] [place] Influenza Virus 2009-05-28 Completed Universit y of Vaccine 00:00:00 [facility] Investigational H1N1 2009-05-28 Completed Univ ersity of Influenza VACCINE 00:00:[address] [facility] [place] Influenza Virus 2009-05-28 Completed [facility] y [facility] Vaccine 00:00:00 [facility] [facility] Investigational H1N1 2009-05-28 Completed [facility] ersity of Influenza VACCINE 00:00:[address] [facility] [place], [place] Influenza Virus 2009-05-28 Completed Universit y of Vaccine 00:00:00 [facility] Investigational H1N1 2009-05-28 Completed Univ ersity of Influenza VACCINE 00:00:[address] [facility] [place] Influenza Virus 2009-05-28 Completed [facility]it y [facility] Vaccine 00:00:00 [facility] Investigational H1N1 2009-05-28 Completed Univ ersity of Influenza VACCINE 00:00:[address] [facility] [place] Influenza Virus 2009-05-28 Completed [facility]it y of Vaccine 00:00:00 [facility] Flu Trivalent 2009-05-28 Completed University of 00:00:00 [facility] Investigational H1N1 2009-05-28 Completed Univ ersity of Influenza VACCINE 00:00:[address] [facility] [place] Influenza Virus 2009-05-28 Completed [facility]it y of Vaccine 00:00:00 [facility] Flu Trivalent 2009-05-28 Completed University of 00:00:00 [facility] Investigational H1N1 2009-05-28 Completed Univ ersity of Influenza VACCINE 00:00:[address] [facility] [place] Influenza Virus 2009-05-28 Completed [facility]it y of Vaccine 00:00:00 [facility] Flu Trivalent 2009-05-28 Completed University of 00:00:00 [facility] Investigational H1N1 2009-05-28 Completed Univ ersity of Influenza VACCINE 00:00:[address] [facility] [place] Influenza Virus 2009-05-28 Completed [facility]it y of Vaccine 00:00:00 [facility] Flu Trivalent 2009-05-28 Completed University of 00:00:00 [facility] Investigational H1N1 2009-05-28 Completed Univ ersity of Influenza VACCINE 00:00:[address] [facility] [place] Influenza Virus 2009-05-28 Completed [facility]it [facility] of Vaccine 00:00:00 [facility] Flu Trivalent 2009-05-28 Completed University of 00:00:00 [facility] Investigational H1N1 2009-05-28 Completed Univ ersity of Influenza VACCINE 00:00:[address] [facility] [place] Influenza Virus 2009-05-28 Completed [facility]it y of Vaccine 00:00:00 [facility] Flu Trivalent 2009-05-28 Completed University of 00:00:00 [facility] Investigational H1N1 2009-05-28 Completed Univ ersity of Influenza VACCINE 00:00:[address] [facility] [place] Influenza Virus 2009-05-28 Completed [facility] y of Vaccine 00:00:00 [facility] Flu Trivalent 2009-05-28 Completed University of 00:00:00 [facility] Investigational H1N1 2009-05-28 Completed Univ ersity of Influenza VACCINE 00:00:[address] [facility] [place] Influenza Virus 2009-05-28 Completed [facility]it y of Vaccine 00:00:00 [facility] Flu Trivalent 2009-05-28 Completed University of 00:00:00 [facility] Investigational H1N1 2009-05-28 Completed Univ ersity of Influenza VACCINE 00:00:[address] [facility] [place] Influenza Virus 2009-05-28 Completed [facility]it y of Vaccine 00:00:00 [facility] Flu Trivalent 2009-05-28 Completed University of 00:00:00 [facility] Investigational H1N1 2009-05-28 Completed Univ ersity of Influenza VACCINE 00:00:[address] [facility] [place] Influenza Virus 2009-05-28 Completed [facility]it y of Vaccine 00:00:00 [facility] Flu Trivalent 2009-05-28 Completed University of 00:00:00 [facility] Investigational H1N1 2009-05-28 Completed Univ ersity of Influenza VACCINE 00:00:[address] [facility] [place] Influenza Virus 2009-05-28 Completed [facility]it y of Vaccine 00:00:00 [facility] Flu Trivalent 2009-05-28 Completed University of 00:00:00 [facility] Investigational H1N1 2009-05-28 Completed Univ ersity of Influenza VACCINE 00:00:[address] [facility] [place] Influenza Virus 2009-05-28 Completed [facility]it y of Vaccine 00:00:00 [facility] Flu Trivalent 2009-05-28 Completed University of 00:00:00 [facility] Investigational H1N1 2009-05-28 Completed Univ ersity of Influenza VACCINE 00:00:[address] [facility] [place] Influenza Virus 2009-05-28 Completed [facility]it y of Vaccine 00:00:00 [facility] Flu Trivalent 2009-05-28 Completed University of 00:00:00 [facility] Investigational H1N1 2009-05-28 Completed Univ ersity of Influenza VACCINE 00:00:[address] [facility] [place] Influenza Virus 2009-05-28 Completed [facility]it y of Vaccine 00:00:00 [facility] Flu Trivalent 2009-05-28 Completed University of 00:00:00 [facility] Investigational H1N1 2009-05-28 Completed Univ ersity of Influenza VACCINE 00:00:[address] [facility] [place] Influenza Virus 2009-05-28 Completed [facility] y of Vaccine 00:00:00 [facility] Flu Trivalent 2009-05-28 Completed University of 00:00:00 [facility] Investigational H1N1 2009-05-28 Completed Univ ersity of Influenza VACCINE 00:00:[address] [facility] [place] Influenza Virus 2009-05-28 Completed [facility]it y of Vaccine 00:00:00 [facility] Flu Trivalent 2009-05-28 Completed University of 00:00:00 [facility] Investigational H1N1 2009-05-28 Completed Univ ersity of Influenza VACCINE 00:00:[address] [facility] [place] Influenza Virus 2009-05-28 Completed [facility]it y of Vaccine 00:00:00 [facility] Flu Trivalent 2009-05-28 Completed University of 00:00:00 [facility] Investigational H1N1 2009-05-28 Completed Univ ersity of Influenza VACCINE 00:00:[address] [facility] [place] Influenza Virus 2009-05-28 Completed [facility]it y of Vaccine 00:00:00 [facility] Flu Trivalent 2009-05-28 Completed University of 00:00:00 [facility] Investigational H1N1 2009-05-28 Completed Univ ersity of Influenza VACCINE 00:00:[address] [facility] [place] Influenza Virus 2009-05-28 Completed [facility]it y of Vaccine 00:00:00 [facility] Flu Trivalent 2009-05-28 Completed University of 00:00:00 [facility] Investigational H1N1 2009-05-28 Completed Univ ersity of Influenza VACCINE 00:00:[address] [facility] [place] Influenza Virus 2009-05-28 Completed Universit y of Vaccine 00:00:00 [facility] Flu Trivalent 2009-05-28 Completed University of 00:00:00 [facility] DTaP, Unspecified 2002-05-26 Completed Univers ity of Formulation 00:00:00 [facility] DTaP, Unspecified 2002-05-26 Completed Univers ity of Formulation 00:00:00 [facility] DTaP, Unspecified 2002-05-26 Completed Univers ity of Formulation 00:00:00 [facility] DTaP, Unspecified 2002-05-26 Completed Univers ity of Formulation 00:00:00 [facility] DTaP, Unspecified 2002-05-26 Completed Univers ity of Formulation 00:00:00 [facility] DTaP, Unspecified 2002-05-26 Completed Univers ity of Formulation 00:00:00 [facility] DTaP, Unspecified 2002-05-26 Completed Univers ity of Formulation 00:00:00 [facility] DTaP, Unspecified 2002-05-26 Completed Univers ity of Formulation 00:00:00 [facility] DTaP, Unspecified 2002-05-26 Completed Univers ity of Formulation 00:00:00 [facility] DTaP, Unspecified 2002-05-26 Completed Univers ity of Formulation 00:00:00 [facility] DTaP, Unspecified 2002-05-26 Completed Univers ity of Formulation 00:00:00 [facility] DTaP, Unspecified 2002-05-26 Completed Univers ity of Formulation 00:00:00 [facility] DTaP, Unspecified 2002-05-26 Completed Univers ity of Formulation 00:00:00 [facility] DTaP, Unspecified 2002-05-26 Completed Univers ity of Formulation 00:00:00 [facility] DTaP, Unspecified 2002-05-26 Completed Univers ity of Formulation 00:00:00 [facility] DTaP, Unspecified 2002-05-26 Completed Univers ity of Formulation 00:00:00 [facility] DTaP, Unspecified 2002-05-26 Completed Univers ity of Formulation 00:00:00 [facility] DTaP, Unspecified 2002-05-26 Completed Univers ity of Formulation 00:00:00 [facility] DTaP, Unspecified 2002-05-26 Completed Univers ity of Formulation 00:00:00 [facility] DTaP, Unspecified 2002-05-26 Completed Univers ity of Formulation 00:00:00 [facility] Heamophilus Influenza 1999-04-10 Completed Uni versity of B 00:00:00 [facility] Varicella 1999-04-10 Completed University of (varivax)(chicken pox) 00:00:[address] [facility] Heamophilus Influenza 1999-04-10 Completed Uni versity of B 00:00:00 [facility] Varicella 1999-04-10 Completed University of (varivax)(chicken pox) 00:00:[address] [facility] Heamophilus Influenza 1999-04-10 Completed Uni versity of B 00:00:00 [facility] Varicella 1999-04-10 Completed [facility] (varivax)(chicken pox) 00:00[facility] Com[facility] vers[facility] of B 00:00:00 [facility] Varicella 1999-04-10 Completed [facility] of (varivax)(chicken pox) 00:00:00 [facility] 1999-04-10 Completed [facility] versity of B 00:00:00 [facility] Varicella 1999-04-10 Completed University of (varivax)(chicken pox) 00:00:00 [facility] 1999-04-10 Completed Uni versity of B 00:00:00 [facility] Varicella 1999-04-10 Completed [facility] of (varivax)(chicken pox) 00:00:00 [facility] 1999-04-10 Completed Uni versity of B 00:00:00 [facility] Varicella 1999-04-10 Completed [facility] of (varivax)(chicken pox) 00:00:00 [facility] 1999-04-10 Completed Uni versity of B 00:00:00 [facility] Varicella 1999-04-10 Completed [facility] of (varivax)(chicken pox) 00:00:00 [facility] 1999-04-10 Completed Uni versity of B 00:00:00 [facility] Varicella 1999-04-10 Completed [facility] of (varivax)(chicken pox) 00:00:00 [facility] 1999-04-10 Completed Uni versity of B 00:00:00 [facility] Varicella 1999-04-10 Completed [facility] of (varivax)(chicken pox) 00:00:00 [facility] 1999-04-10 Completed Uni versity of B 00:00:00 [facility] Varicella 1999-04-10 Completed University of (varivax)(chicken pox) 00:00:[address] [facility] Heophilus Influenza 1999-04-10 Completed Uni versity of B 00:00:00 [facility] Varicella 1999-04-10 Completed [facility] of (varivax)(chicken pox) 00:00:00 [facility] 1999-04-10 Completed Uni versity of B 00:00:00 [facility] Varicella 1999-04-10 Completed University of (varivax)(chicken pox) 00:00:[address] [facility] Heamophilus Influenza 1999-04-10 Completed Uni versity of B 00:00:00 [facility] Varicella 1999-04-10 Completed University of (varivax)(chicken pox) 00:00:00 [facility] 1999-04-10 Completed Uni versity of B 00:00:00 [facility] Varicella 1999-04-10 Completed University of (varivax)(chicken pox) 00:00:[address] [facility] Heamophilus Influenza 1999-04-10 Completed Uni versity of B 00:00:00 [facility] Varicella 1999-04-10 Completed University of (varivax)(chicken pox) 00:00:00 [facility] 1999-04-10 Completed Uni versity of B 00:00:00 [facility] Varicella 1999-04-10 Completed [facility] (varivax[facility]chicken pox) [facility] versity of B 00:00:00 [facility] Varicella 1999-04-10 Completed University of (varivax)(chicken pox) 00:00:00 [facility] 1999-04-10 Completed Uni versity of B 00:00:00 [facility] Varicella 1999-04-10 Completed University of (varivax)(chicken pox) 00:00:00 [facility] 1999-04-10 Completed Uni versity of B 00:00:00 [facility] Varicella 1999-04-10 Completed [facility] of (varivax)(chicken pox) 00:00:00 [facility] 1999-04-10 Completed Uni versity of B 00:00:00 [facility] Varicella 1999-04-10 Completed University of (varivax)(chicken pox) 00:00:[address] [facility] DTaP, Unspecified 1999-04-10 Completed Univers ity of Formulation 00:00:00 [facility] Haemophilus influenzae 1999-04-10 Completed Un iversity of type b vaccine, 00:00:00 [place] [facility] unspecified [facility] formulation Heamophilus Influenza 1999-04-10 Completed Uni versity of B 00:00:00 [facility] Varicella 1999-04-10 Completed University of (varivax)(chicken pox) 00:00:[address] [facility] DTaP, Unspecified 1999-04-10 Completed Univers ity of Formulation 00:00:00 [facility] Haemophilus influenzae 1999-04-10 Completed Un iversity of type b vaccine, 00:00:00 [place] [facility] conjugate unspecified Bra n[facility] formulation Heamophilus Influenza 1999-04-10 Completed Uni versity of B 00:00:00 [facility] Varicella 1999-04-10 Completed University of (varivax)(chicken pox) 00:00:[address] [facility] DTaP, Unspecified 1999-04-10 Completed Univers ity of Formulation 00:00:00 [facility] Haemophilus influenzae 1999-04-10 Completed Un iversity of type b vaccine, 00:00:00 [place] [facility] conjugate unspecified Bra nch formulation Heamophilus Influenza 1999-04-10 Completed Uni versity of B 00:00:00 [facility] Varicella 1999-04-10 Completed University of (varivax)(chicken pox) 00:00:[address] [facility] DTaP, Unspecified 1999-04-10 Completed Univers ity of Formulation 00:00:00 [facility] Haemophilus influenzae 1999-04-10 Completed Un iversity of type b vaccine, 00:00:00 [place] [facility] conjugate unspecified Bra nch formulation Heamophilus Influenza 1999-04-10 Completed Uni versity of B 00:00:00 [facility] Varicella 1999-04-10 Completed University of (varivax)(chicken pox) 00:00:[address] [facility] DTaP, Unspecified 1999-04-10 Completed Univers ity of Formulation 00:00:00 [facility] Haemophilus influenzae 1999-04-10 Completed Un iversity of type b vaccine, 00:00:00 [place] [facility] conjugate unspecified Bra nch formulation Heamophilus Influenza 1999-04-10 Completed Uni versity of B 00:00:00 [facility] Varicella 1999-04-10 Completed University of (varivax)(chicken pox) 00:00:[address] [facility] DTaP, Unspecified 1999-04-10 Completed Univers ity of Formulation 00:00:00 [facility] Haemophilus influenzae 1999-04-10 Completed Un iversity of type b vaccine, 00:00:00 [place] [facility] conjugate unspecified Bra nch formulation Heamophilus Influenza 1999-04-10 Completed Uni versity of B 00:00:00 [facility] Varicella 1999-04-10 Completed University of (varivax)(chicken pox) 00:00:[address] [facility] DTaP, Unspecified 1999-04-10 Completed Univers ity of Formulation 00:00:00 [facility] Haemophilus influenzae 1999-04-10 Completed Un iversity of type b vaccine, 00:00:00 [place] [facility] conjugate unspecified Bra n[facility] formulation Heamophilus Influenza 1999-04-10 Completed Uni versity of B 00:00:00 [facility] Varicella 1999-04-10 Completed University of (varivax)(chicken pox) 00:00:[address] [facility] DTaP, Unspecified 1999-04-10 Completed Univers ity of Formulation 00:00:00 [facility] Haemophilus influenzae 1999-04-10 Completed Un iversity of type b vaccine, 00:00:00 [place] [facility] conjugate unspecified Bra nch formulation Heamophilus Influenza 1999-04-10 Completed Uni versity of B 00:00:00 [facility] Varicella 1999-04-10 Completed University of (varivax)(chicken pox) 00:00:[address] [facility] DTaP, Unspecified 1999-04-10 Completed Univers ity of Formulation 00:00:00 [facility] Haemophilus influenzae 1999-04-10 Completed Un iversity of type b vaccine, 00:00:00 [place] [facility] conjugate unspecified Bra n[facility] formulation Heamophilus Influenza 1999-04-10 Completed Uni versity of B 00:00:00 [facility] Varicella 1999-04-10 Completed University of (varivax)(chicken pox) 00:00:[address] [facility] DTaP, Unspecified 1999-04-10 Completed Univers ity of Formulation 00:00:00 [facility] Haemophilus influenzae 1999-04-10 Completed Un iversity of type b vaccine, 00:00:00 [place] [facility] conjugate unspecified Bra nch formulation Heamophilus Influenza 1999-04-10 Completed Uni versity of B 00:00:00 [facility] Varicella 1999-04-10 Completed University of (varivax)(chicken pox) 00:00:[address] [facility] DTaP, Unspecified 1999-04-10 Completed Univers ity of Formulation 00:00:00 [facility] Haemophilus influenzae 1999-04-10 Completed Un iversity of type b vaccine, 00:00:00 [place] [facility] unspecified Bra nch formulation Heamophilus Influenza 1999-04-10 Completed Uni versity of B 00:00:00 [facility] Varicella 1999-04-10 Completed University of (varivax)(chicken pox) 00:00:[address] [facility] DTaP, Unspecified 1999-04-10 Completed Univers ity of Formulation 00:00:00 [facility] Haemophilus influenzae 1999-04-10 Completed Un iversity of type b vaccine, 00:00:00 [place] [facility] conjugate unspecified Bra nch formulation Heamophilus Influenza 1999-04-10 Completed Uni versity of B 00:00:00 [facility] Varicella 1999-04-10 Completed University of (varivax)(chicken pox) 00:00:[address] [facility] DTaP, Unspecified 1999-04-10 Completed Univers ity of Formulation 00:00:00 [facility] Haemophilus influenzae 1999-04-10 Completed Un iversity of type b vaccine, 00:00:00 [place] [facility] unspecified Bra n[facility] formulation Heamophilus Influenza 1999-04-10 Completed Uni versity of B 00:00:00 [facility] Varicella 1999-04-10 Completed University of (varivax)(chicken pox) 00:00:[address] [facility] DTaP, Unspecified 1999-04-10 Completed Univers ity of Formulation 00:00:00 [facility] Haemophilus influenzae 1999-04-10 Completed Un iversity of type b vaccine, 00:00:00 [place] [facility] conjugate unspecified Bra nch formulation Heamophilus Influenza 1999-04-10 Completed Uni versity of B 00:00:00 [facility] Varicella 1999-04-10 Completed University of (varivax)(chicken pox) 00:00:[address] [facility] DTaP, Unspecified 1999-04-10 Completed Univers ity of Formulation 00:00:00 [facility] Haemophilus influenzae 1999-04-10 Completed Un iversity of type b vaccine, 00:00:00 [place] [facility] unspecified Bra nch formulation Heamophilus Influenza 1999-04-10 Completed Uni versity of B 00:00:00 [facility] Varicella 1999-04-10 Completed University of (varivax)(chicken pox) 00:00:[address] [facility] DTaP, Unspecified 1999-04-10 Completed Univers ity of Formulation 00:00:00 [facility] Haemophilus influenzae 1999-04-10 Completed Un iversity of type b vaccine, 00:00:00 [place] [facility] conjugate unspecified Bra nch formulation Heamophilus Influenza 1999-04-10 Completed Uni versity of B 00:00:00 [facility] Varicella 1999-04-10 Completed University of (varivax)(chicken pox) 00:00:[address] [facility] DTaP, Unspecified 1999-04-10 Completed Univers ity of Formulation 00:00:00 [facility] Haemophilus influenzae 1999-04-10 Completed Un iversity of type b vaccine, 00:00:00 [place] [facility] conjugate unspecified Bra nch formulation Heamophilus Influenza 1999-04-10 Completed Uni versity of B 00:00:00 [facility] Varicella 1999-04-10 Completed University of (varivax)(chicken pox) 00:00:[address] [facility] DTaP, Unspecified 1999-04-10 Completed Univers ity of Formulation 00:00:00 [facility] Haemophilus influenzae 1999-04-10 Completed Un iversity of type b vaccine, 00:00:00 [place] [facility] conjugate unspecified Bra nch formulation Heamophilus Influenza 1999-04-10 Completed Uni versity of B 00:00:00 [facility] Varicella 1999-04-10 Completed University of (varivax)(chicken pox) 00:00:[address] [facility] DTaP, Unspecified 1999-04-10 Completed Univers ity of Formulation 00:00:00 [facility] Haemophilus influenzae 1999-04-10 Completed Un iversity of type b vaccine, 00:00:00 [place] [facility] conjugate unspecified Bra n[facility] formulation Heamophilus Influenza 1999-04-10 Completed Uni versity of B 00:00:00 [facility] Varicella 1999-04-10 Completed [facility] of (varivax)(chicken pox) 00:00:00 [facility] DTaP, Unspecified 1999-04-10 Completed Univers ity of Formulation 00:00:00 [facility] Haemophilus influenzae 1999-04-10 Completed Un iversity of type b vaccine, 00:00:00 [facility] [facility] unspecified Bra nch formulation MMR 1999-02-08 Completed [facility] 00:[facility]:00 [facility] MMR 1999-02-08 Completed [facility] 00:00:00 [facility] MMR 1999-02-08 Completed [facility] 00:00:00 [facility] MMR 1999-02-08 Completed [facility] 00[facility]00:00 [facility] MMR 1999-02-08 Completed [facility] 00[facility]00:00 [facility] MMR 1999-02-08 Completed [facility] 00:00:00 [facility] MMR 1999-02-08 Completed [facility] 00[facility]00:00 [facility] MMR 1999-02-08 Completed [facility] 00:00:00 [facility] MMR 1999-02-08 Completed [facility] 00[facility]00:00 [facility] MMR 1999-02-08 Completed [facility] 00[facility]00:00 [facility] MMR 1999-02-08 Completed [facility] 00:00:00 [facility] MMR 1999-02-08 Completed [facility] 00[facility]00:00 [facility] MMR 1999-02-08 Completed [facility] 00:00:00 [facility] MMR 1999-02-08 Completed [facility] 00[facility]00:00 [facility] MMR 1999-02-08 Completed [facility] 00:00:00 [facility] MMR 1999-02-08 Completed [facility] 00[facility]00:00 [facility] MMR 1999-02-08 Completed [facility] 00:00:00 [facility] MMR 1999-02-08 Completed [facility] 00:00:00 [facility] MMR 1999-02-08 Completed [facility] 00:00:00 [facility] MMR 1999-02-08 Completed [facility] 00:00:00 [facility] Hep B, Adol or Pedi 1998 Completed [facility] of Dosage 00:00:00 [facility] Hep B, Adol or Pedi 1998 Completed [facility] of Dosage 00:00:00 [facility] Hep B, Adol or Pedi 1998 Completed [facility] Dosage 00:00:00 [facility] Hep B, Adol or Pedi 1998 Completed [facility] of Dosage 00:00:00 [facility] Hep B, Adol or Pedi 1998 Completed [facility] of Dosage 00:00:00 [facility] Hep B, Adol or Pedi 1998 Completed [facility] of Dosage 00:00:00 [facility] Hep B, Adol or Pedi 1998 Completed [facility] of Dosage 00:00:00 [facility] Hep B, Adol or Pedi 1998 Completed [facility] of Dosage 00:00:00 [facility] Hep B, Adol or Pedi 1998 Completed [facility] of Dosage 00:00:00 [facility] Hep B, Adol or Pedi 1998 Completed [facility] of Dosage 00:00:00 [facility] Hep B, Adol or Pedi 1998 Completed [facility] of Dosage 00:00:00 [facility] Hep B, Adol or Pedi 1998 Completed [facility] of Dosage 00:00:00 [facility] Hep B, Adol or Pedi 1998 Completed [facility] of Dosage 00:00:00 [facility] Hep B, Adol or Pedi 1998 Completed [facility] of Dosage 00:00:00 [facility] Hep B, Adol or Pedi 1998 Completed [facility] of Dosage 00:00:00 [facility] Hep B, Adol or Pedi 1998 Completed [facility] of Dosage 00:00:00 [facility] Hep B, Adol or Pedi 1998 Completed [facility] of Dosage 00:00:00 [facility] Hep B, Adol or Pedi 1998 Completed [facility] of Dosage 00:00:00 [facility] Hep B, Adol or Pedi 1998 Completed [facility] of Dosage 00:00:00 [facility] Hep B, Adol or Pedi 1998 Completed [facility] of Dosage 00:00:00 [facility] Hep B, Adol or Pedi 1998 Completed [facility] of Dosage 00:00:00 [facility] Hep B, Unspecified 1998 Completed Univer [facility]ity of Formulation 00:00:00 [facility] Hep B, Adol or Pedi 1998 Completed [facility] of Dosage 00:00:00 [facility] Hep B, Unspecified 1998 Completed [facility] of Formulation 00:00:00 [facility] Hep B, Adol or Pedi 1998 Completed [facility] of Dosage 00:00:00 [facility] Hep B, Unspecified 1998 Completed [facility] of Formulation 00:00:00 [facility] Hep B, Adol or Pedi 1998 Completed [facility] of Dosage 00:00:00 [facility] Hep B, Unspecified 1998 Completed [facility] of Formulation 00:00:00 [facility] Hep B, Adol or Pedi 1998 Completed [facility] of Dosage 00:00:00 [facility] Hep B, Unspecified 1998 Completed [facility]iver [facility]ity of Formulation 00:00:00 [facility] Hep B, Adol or Pedi 1998 Completed [facility]ity of Dosage 00:00:00 [facility] Hep B, Unspecified 1998 Completed Univer [facility]ity of Formulation 00:00:00 [facility] Hep B, Adol or Pedi 1998 Completed [facility] of Dosage 00:00:00 [facility] Hep B, Unspecified 1998 Completed Univer sity of Formulation 00:00:00 [facility] Hep B, Adol or Pedi 1998 Completed [facility] of Dosage 00:00:00 [facility] Hep B, Unspecified 1998 Completed [facility]iver [facility] of Formulation 00:00:00 [facility] Hep B, Adol or Pedi 1998 Completed [facility] of Dosage 00:00:00 [facility] Hep B, Unspecified 1998 Completed [facility]iver [facility]ity of Formulation 00:00:00 [facility] Hep B, Adol or Pedi 1998 Completed [facility] of Dosage 00:00:00 [facility] Hep B, Unspecified 1998 Completed [facility]iver [facility] of Formulation 00:00:00 [facility] Hep B, Adol or Pedi 1998 Completed [facility] of Dosage 00:00:00 [facility] Hep B, Unspecified 1998 Completed [facility]iver [facility] of Formulation 00:00:00 [facility] Hep B, Adol or Pedi 1998 Completed [facility] of Dosage 00:00:00 [facility] Hep B, Unspecified 1998 Completed [facility]iver [facility] of Formulation 00:00:00 [facility] Hep B, Adol or Pedi 1998 Completed [facility] of Dosage 00:00:00 [facility] Hep B, Unspecified 1998 Completed [facility]iver [facility]ity of Formulation 00:00:00 [facility] Hep B, Adol or Pedi 1998 Completed [facility] of Dosage 00:00:00 [facility] Hep B, Unspecified 1998 Completed Univer [facility]ity of Formulation 00:00:00 [facility] Hep B, Adol or Pedi 1998 Completed [facility] of Dosage 00:00:00 [facility] Hep B, Unspecified 1998 Completed [facility]iver [facility]ity of Formulation 00:00:00 [facility] Hep B, Adol or Pedi 1998 Completed [facility] of Dosage 00:00:00 [facility] Hep B, Unspecified 1998 Completed [facility]iver [facility]ity of Formulation 00:00:00 [facility] Hep B, Adol or Pedi 1998 Completed [facility] of Dosage 00:00:00 [facility] Hep B, Unspecified 1998 Completed Univer sity of Formulation 00:00:00 [facility] Hep B, Adol or Pedi 1998 Completed [facility] of Dosage 00:00:00 [facility] Hep B, Unspecified 1998 Completed Univer sity of Formulation 00:00:00 [facility] Hep B, Adol or Pedi 1998 Completed [facility] of Dosage 00:00:00 [facility] Hep B, Unspecified 1998 Completed [facility]iver [facility]ity of Formulation 00:00:00 [facility] Hep B, Adol or Pedi 1998 Completed [facility] of Dosage 00:00:00 [facility] Hep B, Unspecified 1998 Completed Univer sity of Formulation 00:00:00 [facility] Heamophilus Influenza 1998 Completed Uni versity of B 00:00:00 [facility] Heamophilus Influenza 1998 Completed Uni versity of B 00:00:00 [facility] Heamophilus Influenza 1998 Completed Uni vers[facility] of B 00:00:00 [facility] Heamophilus Influenza 1998 Completed Uni vers[facility] of B 00:00:00 [facility] Heamophilus Influenza 1998 Completed Uni vers[facility] of B 00:00:00 [facility] Heamophilus Influenza 1998 Completed Uni vers[facility] of B 00:00:00 [facility] Heamophilus Influenza 1998 Completed Uni versity of B 00:00:00 [facility] Heamophilus Influenza 1998 Completed Uni versity of B 00:00:00 [facility] Heamophilus Influenza 1998 Completed Uni vers[facility] of B 00:00:00 [facility] Heamophilus Influenza 1998 Completed Uni vers[facility] of B 00:00:00 [facility] Heamophilus Influenza 1998 Completed Uni versity of B 00:00:00 [facility] Heamophilus Influenza 1998 Completed Uni vers[facility] of B 00:00:00 [facility] Heamophilus Influenza 1998 Completed Uni versity of B 00:00:00 [facility] Heamophilus Influenza 1998 Completed Uni versity of B 00:00:00 [facility] Heamophilus Influenza 1998 Completed Uni versity of B 00:00:00 [facility] Heamophilus Influenza 1998 Completed Uni versity of B 00:00:00 [facility] Heamophilus Influenza 1998 Completed Uni versity of B 00:00:00 [facility] Heamophilus Influenza 1998 Completed Uni versity of B 00:00:00 [facility] Heamophilus Influenza 1998 Completed Uni versity of B 00:00:00 [facility] Heamophilus Influenza 1998 Completed Uni vers[facility] of B 00:00:00 [facility] Heamophilus Influenza 1998 Completed [facility] vers[facility] of B 00:00:00 [facility] DTaP, Unspecified 1998 Completed [facility] Formulation 00:00:00 [facility] Haemophilus influenzae 1998 Completed Un iversity of type b vaccine, 00:00:00 [place] [facility] conjugate unspecified Bra nch formulation Heamophilus Influenza 1998 Completed Uni vers[facility] of B 00:00:00 [facility] DTaP, Unspecified 1998 Completed [facility] Formulation 00:00:00 [facility] Haemophilus influenzae 1998 Completed Un iversity of type b vaccine, 00:00:00 [place] [facility] conjugate unspecified Bra nch formulation Heamophilus Influenza 1998 Completed Uni vers[facility] of B 00:00:00 [facility] DTaP, Unspecified 1998 Completed [facility] Formulation 00:00:00 [facility] Haemophilus influenzae 1998 Completed Un iversity of type b vaccine, 00:00:00 [place] [facility] conjugate unspecified Bra nch formulation Heamophilus Influenza 1998 Completed Uni vers[facility] of B 00:00:00 [facility] DTaP, Unspecified 1998 Completed [facility] of Formulation 00:00:00 [facility] Haemophilus influenzae 1998 Completed Un iversity of type b vaccine, 00:00:00 [place] [facility] conjugate unspecified Bra nch formulation Heamophilus Influenza 1998 Completed Uni versity of B 00:00:00 [facility] DTaP, Unspecified 1998 Completed [facility] Formulation 00:00:00 [facility] Haemophilus influenzae 1998 Completed Un iversity of type b vaccine, 00:00:00 [place] [facility] conjugate unspecified Bra nch formulation Heamophilus Influenza 1998 Completed Uni versity of B 00:00:00 [facility] DTaP, Unspecified 1998 Completed [facility] Formulation 00:00:00 [facility] Haemophilus influenzae 1998 Completed Un iversity of type b vaccine, 00:00:00 [place] [facility] conjugate unspecified Bra n[facility] formulation Heamophilus Influenza 1998 Completed Uni versity of B 00:00:00 [facility] DTaP, Unspecified 1998 Completed [facility] Formulation 00:00:00 [facility] Haemophilus influenzae 1998 Completed Un iversity of type b vaccine, 00:00:00 [place] [facility] conjugate unspecified Bra n[facility] formulation Heamophilus Influenza 1998 Completed Uni vers[facility] of B 00:00:00 [facility] DTaP, Unspecified 1998 Completed [facility] Formulation 00:00:00 [facility] Haemophilus influenzae 1998 Completed Un iversity of type b vaccine, 00:00:00 [place] [facility] conjugate unspecified Bra n[facility] formulation Heamophilus Influenza 1998 Completed Uni versity of B 00:00:00 [facility] DTaP, Unspecified 1998 Completed [facility] Formulation 00:00:00 [facility] Haemophilus influenzae 1998 Completed Un iversity of type b vaccine, 00:00:00 [place] [facility] conjugate unspecified Bra nch formulation Heamophilus Influenza 1998 Completed [facility] vers[facility] of B 00:00:00 [facility] DTaP, Unspecified 1998 Completed [facility] Formulation 00:00:00 [facility] Haemophilus influenzae 1998 Completed Un iversity of type b vaccine, 00:00:00 [place] [facility] conjugate unspecified Bra nch formulation Heamophilus Influenza 1998 Completed Uni versity of B 00:00:00 [facility] DTaP, Unspecified 1998 Completed [facility] Formulation 00:00:00 [facility] Haemophilus influenzae 1998 Completed Un iversity of type b vaccine, 00:00:00 [place] [facility] conjugate unspecified Bra nch formulation Heamophilus Influenza 1998 Completed [facility] vers[facility] of B 00:00:00 [facility] DTaP, Unspecified 1998 Completed [facility] Formulation 00:00:00 [facility] Haemophilus influenzae 1998 Completed Un iversity of type b vaccine, 00:00:00 [place] [facility] conjugate unspecified Bra n[facility] formulation Heamophilus Influenza 1998 Completed Uni vers[facility] of B 00:00:00 [facility] DTaP, Unspecified 1998 Completed [facility] Formulation 00:00:00 [facility] Haemophilus influenzae 1998 Completed Un iversity of type b vaccine, 00:00:00 [place] [facility] conjugate unspecified Bra nch formulation Heamophilus Influenza 1998 Completed [facility] vers[facility] of B 00:00:00 [facility] DTaP, Unspecified 1998 Completed [facility] Formulation 00:00:00 [facility] Haemophilus influenzae 1998 Completed Un iversity of type b vaccine, 00:00:00 [place] [facility] conjugate unspecified Bra nch formulation Heamophilus Influenza 1998 Completed [facility] vers[facility] of B 00:00:00 [facility] DTaP, Unspecified 1998 Completed [facility] Formulation 00:00:00 [facility] Haemophilus influenzae 1998 Completed Un iversity of type b vaccine, 00:00:00 [place] [facility] conjugate unspecified Bra nch formulation Heamophilus Influenza 1998 Completed [facility] vers[facility] of B 00:00:00 [facility] DTaP, Unspecified 1998 Completed [facility] Formulation 00:00:00 [facility] Haemophilus influenzae 1998 Completed Un iversity of type b vaccine, 00:00:00 [place] [facility] conjugate unspecified Bra nch formulation Heamophilus Influenza 1998 Completed [facility] vers[facility] of B 00:00:00 [facility] DTaP, Unspecified 1998 Completed [facility] Formulation 00:00:00 [facility] Haemophilus influenzae 1998 Completed Un iversity of type b vaccine, 00:00:00 [place] [facility] conjugate unspecified Bra nch formulation Heamophilus Influenza 1998 Completed [facility] vers[facility] of B 00:00:00 [facility] DTaP, Unspecified 1998 Completed [facility] Formulation 00:00:00 [facility] Haemophilus influenzae 1998 Completed Un iversity of type b vaccine, 00:00:00 [place] [facility] conjugate unspecified Bra nch formulation Heamophilus Influenza 1998 Completed [facility] vers[facility] of B 00:00:00 [facility] DTaP, Unspecified 1998 Completed [facility] Formulation 00:00:00 [facility] Haemophilus influenzae 1998 Completed Un iversity of type b vaccine, 00:00:00 [place] [facility] conjugate unspecified [facility] formulation Heamophilus Influenza 1998 Completed Uni versity of B 00:00:00 [facility] DTaP, Unspecified 1998 Completed [facility] Formulation 00:00:00 [facility] Haemophilus influenzae 1998 Completed Un iversity of type b vaccine, 00:00:00 [place] [facility] conjugate unspecified [facility] formulation DTaP, Unspecified 1998 Completed [facility] Formulation 00:00:00 [facility] DTaP, Unspecified 1998 Completed [facility] of Formulation 00:00:00 [facility] DTaP, Unspecified 1998 Completed [facility] of Formulation 00:00:00 [facility] DTaP, Unspecified 1998 Completed [facility] of Formulation 00:00:00 [facility] DTaP, Unspecified 1998 Completed [facility] of Formulation 00:00:00 [facility] DTaP, Unspecified 1998 Completed [facility] of Formulation 00:00:00 [facility] DTaP, Unspecified 1998 Completed [facility] of Formulation 00:00:00 [facility] DTaP, Unspecified 1998 Completed [facility] of Formulation 00:00:00 [facility] DTaP, Unspecified 1998 Completed [facility] of Formulation 00:00:00 [facility] DTaP, Unspecified 1998 Completed [facility] of Formulation 00:00:00 [facility] DTaP, Unspecified 1998 Completed [facility] ity of Formulation 00:00:00 [facility] DTaP, Unspecified 1998 Completed [facility] of Formulation 00:00:00 [facility] DTaP, Unspecified 1998 Completed [facility] of Formulation 00:00:00 [facility] DTaP, Unspecified 1998 Completed [facility] of Formulation 00:00:00 [facility] DTaP, Unspecified 1998 Completed [facility] of Formulation 00:00:00 [facility] DTaP, Unspecified 1998 Completed [facility] of Formulation 00:00:00 [facility] DTaP, Unspecified 1998 Completed [facility] Formulation 00:00:00 [facility] DTaP, Unspecified 1998 Completed [facility] Formulation 00:00:00 [facility] DTaP, Unspecified 1998 Completed [facility] of Formulation 00:00:00 [facility] DTaP, Unspecified 1998 Completed [facility] Formulation 00:00:00 [facility] Heamophilus Influenza 1998 Completed [facility] vers[facility] of B 00:00:00 [facility] Heamophilus Influenza 1998 Completed Uni versity of B 00:00:00 [facility] Heamophilus Influenza 1998 Completed [facility] vers[facility] of B 00:00:00 [facility] Heamophilus Influenza 1998 Completed [facility] vers[facility] of B 00:00:00 [facility] Heamophilus Influenza 1998 Completed Uni versity of B 00:00:00 [facility] Heamophilus Influenza 1998 Completed Uni versity of B 00:00:00 [facility] Heamophilus Influenza 1998 Completed Uni versity of B 00:00:00 [facility] Heamophilus Influenza 1998 Completed [facility] vers[facility] of B 00:00:00 [facility] Heamophilus Influenza 1998 Completed [facility] vers[facility] of B 00:00:00 [facility] Heamophilus Influenza 1998 Completed [facility] vers[facility] of B 00:00:00 [facility] Heamophilus Influenza 1998 Completed Uni vers[facility] of B 00:00:00 [facility] Heamophilus Influenza 1998 Completed Uni versity of B 00:00:00 [facility] Heamophilus Influenza 1998 Completed Uni versity of B 00:00:00 [facility] Heamophilus Influenza 1998 Completed Uni versity of B 00:00:00 [facility] Heamophilus Influenza 1998 Completed [facility] vers[facility] of B 00:00:00 [facility] Heamophilus Influenza 1998 Completed [facility] vers[facility] of B 00:00:00 [facility] Heamophilus Influenza 1998 Completed [facility] vers[facility] of B 00:00:00 [facility] Heamophilus Influenza 1998 Completed [facility] vers[facility] of B 00:00:00 [facility] Heamophilus Influenza 1998 Completed Uni vers[facility] of B 00:00:00 [facility] Heamophilus Influenza 1998 Completed [facility] vers[facility] of B 00:00:00 [facility] Heamophilus Influenza 1998 Completed [facility] vers[facility] of B 00:00:00 [facility] Haemophilus influenzae 1998 Completed Un iversity of type b vaccine, 00:00:00 [place] [facility] conjugate unspecified [facility] formulation Heamophilus Influenza 1998 Completed [facility] vers[facility] of B 00:00:00 [facility] Haemophilus influenzae 1998 Completed Un iversity of type b vaccine, 00:00:00 [place] [facility] conjugate unspecified [facility] formulation Heamophilus Influenza 1998 Completed [facility] B 00:00:00 [facility] Haemophilus influenzae 1998 Completed Un iversity of type b vaccine, 00:00:00 [place] [facility] conjugate unspecified Bra [facility] formulation Heamophilus Influenza 1998 Completed [facility] B 00:00:00 [facility] Haemophilus influenzae 1998 Completed Un iversity of type b vaccine, 00:00:00 [place] [facility] conjugate unspecified [facility] formulation Heamophilus Influenza 1998 Completed [facility] B 00:00:00 [facility] Haemophilus influenzae 1998 Completed Un iversity of type b vaccine, 00:00:00 [place] [facility] conjugate unspecified [facility] formulation Heamophilus Influenza 1998 Completed [facility] vers[facility] of B 00:00:00 [facility] Haemophilus influenzae 1998 Completed Un iversity of type b vaccine, 00:00:00 [place] [facility] conjugate unspecified [facility] formulation Heamophilus Influenza 1998 Completed [facility] B 00:00:00 [facility] Haemophilus influenzae 1998 Completed Un iversity of type b vaccine, 00:00:00 [place] [facility] conjugate unspecified [facility] formulation Heamophilus Influenza 1998 Completed [facility] B 00:00:00 [facility] Haemophilus influenzae 1998 Completed Un iversity of type b vaccine, 00:00:00 [place] [facility] conjugate unspecified [facility] formulation Heamophilus Influenza 1998 Completed [facility] B 00:00:00 [facility] Haemophilus influenzae 1998 Completed Un iversity of type b vaccine, 00:00:00 [place] [facility] conjugate unspecified [facility] formulation Heamophilus Influenza 1998 Completed [facility] B 00:00:00 [facility] Haemophilus influenzae 1998 Completed Un iversity of type b vaccine, 00:00:00 [place] [facility] formulation Heamophilus Influenza 1998 Completed Uni versity of B 00:00:00 [facility] Haemophilus influenzae 1998 Completed Un iversity of type b vaccine, 00:00:00 [place] [facility] unspecified Bra n[facility] formulation Heamophilus Influenza 1998 Completed Uni versity of B 00:00:00 [facility] Haemophilus influenzae 1998 Completed Un iversity of type b vaccine, 00:00:00 [place] [facility] unspecified Bra n[facility] formulation Heamophilus Influenza 1998 Completed Uni versity of B 00:00:00 [facility] Haemophilus influenzae 1998 Completed Un iversity of type b vaccine, 00:00:00 [place] [facility] unspecified Bra n[facility] formulation Heamophilus Influenza 1998 Completed Uni versity of B 00:00:00 [facility] Haemophilus influenzae 1998 Completed Un iversity of type b vaccine, 00:00:00 [place] [facility] unspecified Bra n[facility] formulation Heamophilus Influenza 1998 Completed Uni versity of B 00:00:00 [facility] Haemophilus influenzae 1998 Completed Un iversity of type b vaccine, 00:00:00 [place] [facility] unspecified Bra n[facility] formulation Heamophilus Influenza 1998 Completed Uni versity of B 00:00:00 [facility] Haemophilus influenzae 1998 Completed Un iversity of type b vaccine, 00:00:00 [place] [facility] unspecified Bra n[facility] formulation Heamophilus Influenza 1998 Completed Uni versity of B 00:00:00 [facility] Haemophilus influenzae 1998 Completed Un iversity of type b vaccine, 00:00:00 [place] [facility] unspecified Bra n[facility] formulation Heamophilus Influenza 1998 Completed Uni versity of B 00:00:00 [facility] Haemophilus influenzae 1998 Completed Un iversity of type b vaccine, 00:00:00 [place] [facility] unspecified Bra n[facility] formulation Heamophilus Influenza 1998 Completed Uni versity of B 00:00:00 [facility] Haemophilus influenzae 1998 Completed Un iversity of type b vaccine, 00:00:00 [place] [facility] unspecified Bra n[facility] formulation Heamophilus Influenza 1998 Completed Uni versity of B 00:00:00 [facility] Haemophilus influenzae 1998 Completed Un iversity of type b vaccine, 00:00:00 [place] [facility] unspecified Bra [facility] formulation Heamophilus Influenza 1998 Completed Uni versity of B 00:00:00 [facility] Hep B, Adol or Pedi 1998 Completed Unive rsity of Dosage 00:00:00 [facility] Heamophilus Influenza 1998 Completed Uni versity of B 00:00:00 [facility] Hep B, Adol or Pedi 1998 Completed Unive rsity of Dosage 00:00:00 [facility] Heamophilus Influenza 1998 Completed Uni versity of B 00:00:00 [facility] Hep B, Adol or Pedi 1998 Completed Unive rsity of Dosage 00:00:00 [facility] Heamophilus Influenza 1998 Completed Uni versity of B 00:00:00 [facility] Hep B, Adol or Pedi 1998 Completed Unive rsity of Dosage 00:00:00 [facility] Heamophilus Influenza 1998 Completed Uni versity of B 00:00:00 [facility] Hep B, Adol or Pedi 1998 Completed Unive rsity of Dosage 00:00:00 [facility] Heamophilus Influenza 1998 Completed Uni versity of B 00:00:00 [facility] Hep B, Adol or Pedi 1998 Completed Unive rsity of Dosage 00:00:00 [facility] Heamophilus Influenza 1998 Completed Uni versity of B 00:00:00 [facility] Hep B, Adol or Pedi 1998 Completed Unive rsity of Dosage 00:00:00 [facility] Heamophilus Influenza 1998 Completed Uni versity of B 00:00:00 [facility] Hep B, Adol or Pedi 1998 Completed Unive rsity of Dosage 00:00:00 [facility] Heamophilus Influenza 1998 Completed Uni versity of B 00:00:00 [facility] Hep B, Adol or Pedi 1998 Completed Unive rsity of Dosage 00:00:00 [facility] Heamophilus Influenza 1998 Completed Uni versity of B 00:00:00 [facility] Hep B, Adol or Pedi 1998 Completed Unive rsity of Dosage 00:00:00 [facility] Heamophilus Influenza 1998 Completed Uni versity of B 00:00:00 [facility] Hep B, Adol or Pedi 1998 Completed Unive rsity of Dosage 00:00:00 [facility] Heamophilus Influenza 1998 Completed Uni versity of B 00:00:00 [facility] Hep B, Adol or Pedi 1998 Completed Unive rsity of Dosage 00:00:00 [facility] Heamophilus Influenza 1998 Completed Uni versity of B 00:00:00 [facility] Hep B, Adol or Pedi 1998 Completed Unive rsity of Dosage 00:00:00 [facility] Heamophilus Influenza 1998 Completed Uni versity of B 00:00:00 [facility] Hep B, Adol or Pedi 1998 Completed Unive rsity of Dosage 00:00:00 [facility] Heamophilus Influenza 1998 Completed Uni versity of B 00:00:00 [facility] Hep B, Adol or Pedi 1998 Completed Unive rsity of Dosage 00:00:00 [facility] Heamophilus Influenza 1998 Completed Uni versity of B 00:00:00 [facility] Hep B, Adol or Pedi 1998 Completed Unive rsity of Dosage 00:00:00 [facility] Heamophilus Influenza 1998 Completed Uni versity of B 00:00:00 [facility] Hep B, Adol or Pedi 1998 Completed Unive rsity of Dosage 00:00:00 [facility] Heamophilus Influenza 1998 Completed Uni versity of B 00:00:00 [facility] Hep B, Adol or Pedi 1998 Completed Unive rsity of Dosage 00:00:00 [facility] Heamophilus Influenza 1998 Completed Uni versity of B 00:00:00 [facility] Hep B, Adol or Pedi 1998 Completed Unive rsity of Dosage 00:00:00 [facility] Heamophilus Influenza 1998 Completed Uni versity of B 00:00:00 [facility] Hep B, Adol or Pedi 1998 Completed Unive rsity of Dosage 00:00:00 [facility] Heamophilus Influenza 1998 Completed Uni versity of B 00:00:00 [facility] Hep B, Adol or Pedi 1998 Completed Unive rsity of Dosage 00:00:00 [facility] DTaP, Unspecified 1998 Completed Univers ity of Formulation 00:00:00 [facility] Hep B, Unspecified 1998 Completed Univer sity of Formulation 00:00:00 [facility] Haemophilus influenzae 1998 Completed Un iversity of type b vaccine, 00:00:00 [place] [facility] unspecified Bra [facility] formulation Heamophilus Influenza 1998 Completed Uni versity of B 00:00:00 [facility] Hep B, Adol or Pedi 1998 Completed Unive rsity of Dosage 00:00:00 [facility] DTaP, Unspecified 1998 Completed Univers ity of Formulation 00:00:00 [facility] Hep B, Unspecified 1998 Completed Univer sity of Formulation 00:00:00 [facility] Haemophilus influenzae 1998 Completed Un iversity of type b vaccine, 00:00:00 [place] [facility] unspecified Bra [facility] formulation Heamophilus Influenza 1998 Completed Uni versity of B 00:00:00 [facility] Hep B, Adol or Pedi 1998 Completed Unive rsity of Dosage 00:00:00 [facility] DTaP, Unspecified 1998 Completed Univers ity of Formulation 00:00:00 [facility] Hep B, Unspecified 1998 Completed Univer sity of Formulation 00:00:00 [facility] Haemophilus influenzae 1998 Completed Un iversity of type b vaccine, 00:00:00 [place] [facility] unspecified Bra n[facility] formulation Heamophilus Influenza 1998 Completed Uni versity of B 00:00:00 [facility] Hep B, Adol or Pedi 1998 Completed Unive rsity of Dosage 00:00:00 [facility] DTaP, Unspecified 1998 Completed Univers ity of Formulation 00:00:00 [facility] Hep B, Unspecified 1998 Completed Univer sity of Formulation 00:00:00 [facility] Haemophilus influenzae 1998 Completed Un iversity of type b vaccine, 00:00:00 [place] [facility] unspecified Bra n[facility] formulation Heamophilus Influenza 1998 Completed Uni versity of B 00:00:00 [facility] Hep B, Adol or Pedi 1998 Completed Unive rsity of Dosage 00:00:00 [facility] DTaP, Unspecified 1998 Completed Univers ity of Formulation 00:00:00 [facility] Hep B, Unspecified 1998 Completed Univer sity of Formulation 00:00:00 [facility] Haemophilus influenzae 1998 Completed Un iversity of type b vaccine, 00:00:00 [place] [facility] unspecified Bra n[facility] formulation Heamophilus Influenza 1998 Completed Uni versity of B 00:00:00 [facility] Hep B, Adol or Pedi 1998 Completed Unive rsity of Dosage 00:00:00 [facility] DTaP, Unspecified 1998 Completed Univers ity of Formulation 00:00:00 [facility] Hep B, Unspecified 1998 Completed Univer sity of Formulation 00:00:00 [facility] Haemophilus influenzae 1998 Completed Un iversity of type b vaccine, 00:00:00 [place] [facility] unspecified Bra n[facility] formulation Heamophilus Influenza 1998 Completed Uni versity of B 00:00:00 [facility] Hep B, Adol or Pedi 1998 Completed Unive rsity of Dosage 00:00:00 [facility] DTaP, Unspecified 1998 Completed Univers ity of Formulation 00:00:00 [facility] Hep B, Unspecified 1998 Completed Univer sity of Formulation 00:00:00 [facility] Haemophilus influenzae 1998 Completed Un iversity of type b vaccine, 00:00:00 [place] [facility] unspecified Bra n[facility] formulation Heamophilus Influenza 1998 Completed Uni versity of B 00:00:00 [facility] Hep B, Adol or Pedi 1998 Completed Unive rsity of Dosage 00:00:00 [facility] DTaP, Unspecified 1998 Completed Univers ity of Formulation 00:00:00 [facility] Hep B, Unspecified 1998 Completed Univer sity of Formulation 00:00:00 [facility] Haemophilus influenzae 1998 Completed Un iversity of type b vaccine, 00:00:00 [place] [facility] unspecified Bra n[facility] formulation Heamophilus Influenza 1998 Completed Uni versity of B 00:00:00 [facility] Hep B, Adol or Pedi 1998 Completed Unive rsity of Dosage 00:00:00 [facility] DTaP, Unspecified 1998 Completed Univers ity of Formulation 00:00:00 [facility] Hep B, Unspecified 1998 Completed Univer sity of Formulation 00:00:00 [facility] Haemophilus influenzae 1998 Completed Un iversity of type b vaccine, 00:00:00 [place] [facility] unspecified Bra n[facility] formulation Heamophilus Influenza 1998 Completed Uni versity of B 00:00:00 [facility] Hep B, Adol or Pedi 1998 Completed Unive rsity of Dosage 00:00:00 [facility] DTaP, Unspecified 1998 Completed Univers ity of Formulation 00:00:00 [facility] Hep B, Unspecified 1998 Completed Univer sity of Formulation 00:00:00 [facility] Haemophilus influenzae 1998 Completed Un iversity of type b vaccine, 00:00:00 [place] [facility] unspecified Bra n[facility] formulation Heamophilus Influenza 1998 Completed Uni versity of B 00:00:00 [facility] Hep B, Adol or Pedi 1998 Completed Unive rsity of Dosage 00:00:00 [facility] DTaP, Unspecified 1998 Completed Univers ity of Formulation 00:00:00 [facility] Hep B, Unspecified 1998 Completed Univer sity of Formulation 00:00:00 [facility] Haemophilus influenzae 1998 Completed Un iversity of type b vaccine, 00:00:00 [place] [facility] unspecified Bra [facility] formulation Heamophilus Influenza 1998 Completed Uni versity of B 00:00:00 [facility] Hep B, Adol or Pedi 1998 Completed Unive rsity of Dosage 00:00:00 [facility] DTaP, Unspecified 1998 Completed Univers ity of Formulation 00:00:00 [facility] Hep B, Unspecified 1998 Completed Univer sity of Formulation 00:00:00 [facility] Haemophilus influenzae 1998 Completed Un iversity of type b vaccine, 00:00:00 [place] [facility] unspecified Bra [facility] formulation Heamophilus Influenza 1998 Completed Uni versity of B 00:00:00 [facility] Hep B, Adol or Pedi 1998 Completed Unive rsity of Dosage 00:00:00 [facility] DTaP, Unspecified 1998 Completed Univers ity of Formulation 00:00:00 [facility] Hep B, Unspecified 1998 Completed Univer sity of Formulation 00:00:00 [facility] Haemophilus influenzae 1998 Completed Un iversity of type b vaccine, 00:00:00 [place] [facility] unspecified Bra [facility] formulation Heamophilus Influenza 1998 Completed Uni versity of B 00:00:00 [facility] Hep B, Adol or Pedi 1998 Completed Unive rsity of Dosage 00:00:00 [facility] DTaP, Unspecified 1998 Completed Univers ity of Formulation 00:00:00 [facility] Hep B, Unspecified 1998 Completed Univer sity of Formulation 00:00:00 [facility] Haemophilus influenzae 1998 Completed Un iversity of type b vaccine, 00:00:00 [place] [facility] unspecified Bra [facility] formulation Heamophilus Influenza 1998 Completed Uni versity of B 00:00:00 [facility] Hep B, Adol or Pedi 1998 Completed Unive rsity of Dosage 00:00:00 [facility] DTaP, Unspecified 1998 Completed Univers ity of Formulation 00:00:00 [facility] Hep B, Unspecified 1998 Completed Univer sity of Formulation 00:00:00 [facility] Haemophilus influenzae 1998 Completed Un iversity of type b vaccine, 00:00:00 [place] [facility] unspecified Bra [facility] formulation Heamophilus Influenza 1998 Completed Uni versity of B 00:00:00 [facility] Hep B, Adol or Pedi 1998 Completed Unive rsity of Dosage 00:00:00 [facility] DTaP, Unspecified 1998 Completed Univers ity of Formulation 00:00:00 [facility] Hep B, Unspecified 1998 Completed Univer sity of Formulation 00:00:00 [facility] Haemophilus influenzae 1998 Completed Un iversity of type b vaccine, 00:00:00 [place] [facility] unspecified Bra [facility] formulation Heamophilus Influenza 1998 Completed Uni versity of B 00:00:00 [facility] Hep B, Adol or Pedi 1998 Completed Unive rsity of Dosage 00:00:00 [facility] DTaP, Unspecified 1998 Completed Univers ity of Formulation 00:00:00 [facility] Hep B, Unspecified 1998 Completed Univer sity of Formulation 00:00:00 [facility] Haemophilus influenzae 1998 Completed Un iversity of type b vaccine, 00:00:00 [place] [facility] unspecified Bra n[facility] formulation Heamophilus Influenza 1998 Completed Uni versity of B 00:00:00 [facility] Hep B, Adol or Pedi 1998 Completed Unive rsity of Dosage 00:00:00 [facility] DTaP, Unspecified 1998 Completed Univers ity of Formulation 00:00:00 [facility] Hep B, Unspecified 1998 Completed Univer sity of Formulation 00:00:00 [facility] Haemophilus influenzae 1998 Completed Un iversity of type b vaccine, 00:00:00 [place] [facility] unspecified Bra [facility] formulation Heamophilus Influenza 1998 Completed Uni versity of B 00:00:00 [facility] Hep B, Adol or Pedi 1998 Completed Unive rsity of Dosage 00:00:00 [facility] DTaP, Unspecified 1998 Completed Univers ity of Formulation 00:00:00 [facility] Hep B, Unspecified 1998 Completed Univer sity of Formulation 00:00:00 [facility] Haemophilus influenzae 1998 Completed Un iversity of type b vaccine, 00:00:00 [place] [facility] unspecified Bra [facility] formulation Heamophilus Influenza 1998 Completed Uni versity of B 00:00:00 [facility] Hep B, Adol or Pedi 1998 Completed Unive rsity of Dosage 00:00:00 [facility] DTaP, Unspecified 1998 Completed Univers ity of Formulation 00:00:00 [facility] Hep B, Unspecified 1998 Completed Univer sity of Formulation 00:00:00 [facility] Haemophilus influenzae 1998 Completed Un iversity of type b vaccine, 00:00:00 [place] [facility] unspecified Bra [facility] formulation Hep B, Adol or Pedi 1998 Completed Unive rsity of Dosage 00:00:00 [facility] Hep B, Adol or Pedi 1998 Completed Unive rsity of Dosage 00:00:00 [facility] Hep B, Adol or Pedi 1998 Completed Unive rsity of Dosage 00:00:00 [facility] Hep B, Adol or Pedi 1998 Completed Unive rsity of Dosage 00:00:00 [facility] Hep B, Adol or Pedi 1998 Completed Unive rsity of Dosage 00:00:00 [facility] Hep B, Adol or Pedi 1998 Completed Unive rsity of Dosage 00:00:00 [facility] Hep B, Adol or Pedi 1998 Completed Unive rsity of Dosage 00:00:00 [facility] Hep B, Adol or Pedi 1998 Completed Unive rsity of Dosage 00:00:00 [facility] Hep B, Adol or Pedi 1998 Completed Unive rsity of Dosage 00:00:00 [facility] Hep B, Adol or Pedi 1998 Completed Unive rsity of Dosage 00:00:00 [facility] Hep B, Adol or Pedi 1998 Completed Unive rsity of Dosage 00:00:00 [facility] Hep B, Adol or Pedi 1998 Completed Unive rsity of Dosage 00:00:00 [facility] Hep B, Adol or Pedi 1998 Completed Unive rsity of Dosage 00:00:00 [facility] Hep B, Adol or Pedi 1998 Completed Unive rsity of Dosage 00:00:00 [facility] Hep B, Adol or Pedi 1998 Completed Unive rsity of Dosage 00:00:00 [facility] Hep B, Adol or Pedi 1998 Completed Unive rsity of Dosage 00:00:00 [facility] Hep B, Adol or Pedi 1998 Completed Unive rsity of Dosage 00:00:00 [facility] Hep B, Adol or Pedi 1998 Completed Unive rsity of Dosage 00:00:00 [facility] Hep B, Adol or Pedi 1998 Completed Unive rsity of Dosage 00:00:00 [facility] Hep B, Adol or Pedi 1998 Completed Unive rsity of Dosage 00:00:00 [facility] Hep B, Adol or Pedi 1998 Completed Unive rsity of Dosage 00:00:00 [facility] Hep B, Unspecified 1998 Completed Univer sity of Formulation 00:00:00 [facility] Hep B, Adol or Pedi 1998 Completed Unive rsity of Dosage 00:00:00 [facility] Hep B, Unspecified 1998 Completed Univer sity of Formulation 00:00:00 [facility] Hep B, Adol or Pedi 1998 Completed Unive rsity of Dosage 00:00:00 [facility] Hep B, Unspecified 1998 Completed Univer sity of Formulation 00:00:00 [facility] Hep B, Adol or Pedi 1998 Completed Unive rsity of Dosage 00:00:00 [facility] Hep B, Unspecified 1998 Completed Univer sity of Formulation 00:00:00 [facility] Hep B, Adol or Pedi 1998 Completed Unive rsity of Dosage 00:00:00 [facility] Hep B, Unspecified 1998 Completed Univer sity of Formulation 00:00:00 [facility] Hep B, Adol or Pedi 1998 Completed Unive rsity of Dosage 00:00:00 [facility] Hep B, Unspecified 1998 Completed Univer sity of Formulation 00:00:00 [facility] Hep B, Adol or Pedi 1998 Completed Unive rsity of Dosage 00:00:00 [facility] Hep B, Unspecified 1998 Completed Univer sity of Formulation 00:00:00 [facility] Hep B, Adol or Pedi 1998 Completed Unive rsity of Dosage 00:00:00 [facility] Hep B, Unspecified 1998 Completed Univer sity of Formulation 00:00:00 [facility] Hep B, Adol or Pedi 1998 Completed Unive rsity of Dosage 00:00:00 [facility] Hep B, Unspecified 1998 Completed Univer sity of Formulation 00:00:00 [facility] Hep B, Adol or Pedi 1998 Completed Unive rsity of Dosage 00:00:00 [facility] Hep B, Unspecified 1998 Completed Univer sity of Formulation 00:00:00 [facility] Hep B, Adol or Pedi 1998 Completed Unive rsity of Dosage 00:00:00 [facility] Hep B, Unspecified 1998 Completed Univer sity of Formulation 00:00:00 [facility] Hep B, Adol or Pedi 1998 Completed Unive rsity of Dosage 00:00:00 [facility] Hep B, Unspecified 1998 Completed Univer sity of Formulation 00:00:00 [facility] Hep B, Adol or Pedi 1998 Completed Unive rsity of Dosage 00:00:00 [facility] Hep B, Unspecified 1998 Completed Univer sity of Formulation 00:00:00 [facility] Hep B, Adol or Pedi 1998 Completed Unive rsity of Dosage 00:00:00 [facility] Hep B, Unspecified 1998 Completed Univer sity of Formulation 00:00:00 [facility] Hep B, Adol or Pedi 1998 Completed Unive rsity of Dosage 00:00:00 [facility] Hep B, Unspecified 1998 Completed Univer sity of Formulation 00:00:00 [facility] Hep B, Adol or Pedi 1998 Completed Unive rsity of Dosage 00:00:00 [facility] Hep B, Unspecified 1998 Completed Univer sity of Formulation 00:00:00 [facility] Hep B, Adol or Pedi 1998 Completed Unive rsity of Dosage 00:00:00 [facility] Hep B, Unspecified 1998 Completed Univer sity of Formulation 00:00:00 [facility] Hep B, Adol or Pedi 1998 Completed Unive rsity of Dosage 00:00:00 [facility] Hep B, Unspecified 1998 Completed Univer sity of Formulation 00:00:00 [facility] Hep B, Adol or Pedi 1998 Completed Unive rsity of Dosage 00:00:00 [facility] Hep B, Unspecified 1998 Completed Univer sity of Formulation 00:00:00 [facility] Hep B, Adol or Pedi 1998 Completed Unive rsity of Dosage 00:00:00 [facility] Hep B, Unspecified 1998 Completed Univer sity of Formulation 00:00:00 [facility] Vital Signs Vital Name Observation Time Observation Value Comments Source Systolic blood 2022-09-03 16:07:00 119 mm[Hg] Univer sity of pressure [facility] Diastolic blood 2022-09-03 16:07:00 81 mm[Hg] Unive rsity of pressure [facility] Heart rate 2022-09-03 16:07:00 65 /min Universi ty of [facility] Body temperature 2022-09-03 16:07:00 35.61 Marcia Univ ersity of [facility] Respiratory rate 2022-09-03 16:07:00 18 /min Univ ersity of [facility] Body height 2022-09-03 16:07:00 152.4 cm Universi ty of [facility] Body weight 2022-09-03 16:07:00 66.996 kg Universi ty of [facility] BMI 2022-09-03 16:07:00 28.85 kg/m2 Universi ty of [facility] Systolic blood 2022-08-15 13:00:00 117 mm[Hg] Univer sity of pressure [facility] Diastolic blood 2022-08-15 13:00:00 78 mm[Hg] Unive rsity of pressure [facility] Heart rate 2022-08-15 13:00:00 73 /min Universi ty of [facility] Body temperature 2022-08-15 13:00:00 36.83 Marcia Univ ersity of [facility] Respiratory rate 2022-08-15 13:00:00 18 /min Univ ersity of [facility] Oxygen saturation in 2022-08-15 13:00:00 97 /min University of Arterial blood by [facility] Pulse oximetry Branch Systolic blood 2022-08-13 10:00:00 114 mm[Hg] Univer sity of pressure [facility] Diastolic blood 2022-08-13 10:00:00 67 mm[Hg] Unive rsity of pressure [facility] Heart rate 2022-08-13 10:00:00 98 /min Universi ty of [facility] Oxygen saturation in 2022-08-13 10:00:00 98 /min University of Arterial blood by [place] [employer] Pulse oximetry Branch Body temperature 2022-08-13 05:45:00 36.83 Marcia Univ ersity of [facility] Respiratory rate 2022-08-13 05:45:00 18 /min Univ ersity of [facility] Body height 2022-08-13 00:10:00 152.4 cm Universi ty of [facility] Body weight 2022-08-13 00:10:00 74.39 kg Universi ty of [facility] BMI 2022-08-13 00:10:00 32.03 kg/m2 Universi ty of [facility] Systolic blood 2022-08-08 20:04:00 106 mm[Hg] Univer sity of pressure [facility] Diastolic blood 2022-08-08 20:04:00 76 mm[Hg] Unive rsity of pressure [facility] Heart rate 2022-08-08 20:04:00 86 /min Universi ty of [facility] Body temperature 2022-08-08 20:04:00 36.28 Marcia Univ ersity of [facility] Respiratory rate 2022-08-08 20:04:00 18 /min Univ ersity of [facility] Body height 2022-08-08 20:04:00 152.4 cm Universi ty of [facility] Body weight 2022-08-08 20:04:00 74.526 kg Universi ty of [facility] BMI 2022-08-08 20:04:00 32.09 kg/m2 Universi ty of [facility] Systolic blood 2022-07-24 20:06:00 110 mm[Hg] Univer sity of pressure [facility] Diastolic blood 2022-07-24 20:06:00 71 mm[Hg] Unive rsity of pressure [facility] Heart rate 2022-07-24 20:06:00 84 /min Universi ty of [facility] Body temperature 2022-07-24 20:06:00 35.94 Marcia Univ ersity of [facility] Respiratory rate 2022-07-24 20:06:00 18 /min Univ ersity of [facility] Body height 2022-07-24 20:06:00 152.4 cm Universi ty of [facility] Body weight 2022-07-24 20:06:00 73.528 kg Universi ty of [facility] BMI 2022-07-24 20:06:00 31.66 kg/m2 Universi ty of [facility] Systolic blood 2022-07-10 15:24:00 112 mm[Hg] Univer sity of pressure [facility] Diastolic blood 2022-07-10 15:24:00 74 mm[Hg] Unive rsity of pressure [facility] Heart rate 2022-07-10 15:24:00 81 /min Universi ty of [facility] Body temperature 2022-07-10 15:24:00 35.56 Marcia Univ ersity of [facility] Respiratory rate 2022-07-10 15:24:00 18 /min Univ ersity of [facility] Body height 2022-07-10 15:24:00 152.4 cm Universi ty of [facility] Body weight 2022-07-10 15:24:00 73.301 kg Universi ty of [facility] BMI 2022-07-10 15:24:00 31.56 kg/m2 Universi ty of [facility] Systolic blood 2022-06-27 16:17:00 106 mm[Hg] Univer sity of pressure [facility] Diastolic blood 2022-06-27 16:17:00 69 mm[Hg] Unive rsity of pressure [facility] Heart rate 2022-06-27 16:17:00 92 /min Universi ty of [facility] Body temperature 2022-06-27 16:17:00 36.61 Marcia Univ ersity of [facility] Respiratory rate 2022-06-27 16:17:00 17 /min Univ ersity of [facility] Body height 2022-06-27 16:17:00 152.4 cm Universi ty of [facility] Body weight 2022-06-27 16:17:00 71.578 kg Universi ty of [facility] BMI 2022-06-27 16:17:00 30.82 kg/m2 Universi ty of [facility] Systolic blood 2022-06-12 16:48:00 109 mm[Hg] Univer sity of pressure [facility] Diastolic blood 2022-06-12 16:48:00 71 mm[Hg] Unive rsity of pressure [facility] Heart rate 2022-06-12 16:48:00 83 /min Universi ty of [facility] Body temperature 2022-06-12 16:48:00 35.78 Marcia Univ ersity of [facility] Respiratory rate 2022-06-12 16:48:00 18 /min Univ ersity of [facility] Body height 2022-06-12 16:48:00 152.4 cm Universi ty of [facility] Body weight 2022-06-12 16:48:00 70.035 kg Universi ty of [facility] BMI 2022-06-12 16:48:00 30.15 kg/m2 Universi ty of [facility] Systolic blood 2022-05-15 17:07:00 107 mm[Hg] Univer sity of pressure [facility] Diastolic blood 2022-05-15 17:07:00 72 mm[Hg] Unive rsity of pressure [facility] Heart rate 2022-05-15 17:07:00 77 /min Universi ty of [facility] Body temperature 2022-05-15 17:07:00 35.94 Marcia Univ ersity of [facility] Respiratory rate 2022-05-15 17:07:00 18 /min Univ ersity of [facility] Body height 2022-05-15 17:07:00 152.4 cm Universi ty of [facility] Body weight 2022-05-15 17:07:00 66.906 kg Universi ty of [facility] BMI 2022-05-15 17:07:00 28.81 kg/m2 Universi ty of [facility] Systolic blood 2022-04-17 17:15:00 106 mm[Hg] Univer sity of pressure [facility] Diastolic blood 2022-04-17 17:15:00 69 mm[Hg] Unive rsity of pressure [facility] Heart rate 2022-04-17 17:15:00 78 /min Universi ty of [facility] Body temperature 2022-04-17 17:15:00 36.72 Marcia Univ ersity of [facility] Respiratory rate 2022-04-17 17:15:00 16 /min Univ ersity of [facility] Body height 2022-04-17 17:15:00 152.4 cm Universi ty of [facility] Body weight 2022-04-17 17:15:00 64.893 kg Universi ty of [facility] BMI 2022-04-17 17:15:00 27.94 kg/m2 Universi ty of [facility] Systolic blood 2022-03-20 17:31:00 117 mm[Hg] Univer sity of pressure [facility] Diastolic blood 2022-03-20 17:31:00 72 mm[Hg] Unive rsity of pressure [facility] Heart rate 2022-03-20 17:31:00 92 /min Universi ty of [facility] Body temperature 2022-03-20 17:31:00 36.72 Marcia Univ ersity of [facility] Respiratory rate 2022-03-20 17:31:00 18 /min Univ ersity of [facility] Body height 2022-03-20 17:31:00 152.4 cm Universi ty of [facility] Body weight 2022-03-20 17:31:00 62.37 kg Universi ty of [facility] BMI 2022-03-20 17:31:00 26.85 kg/m2 Universi ty of [facility] Systolic blood 2022-02-20 17:08:00 101 mm[Hg] Univer sity of pressure [facility] Diastolic blood 2022-02-20 17:08:00 70 mm[Hg] Unive rsity of pressure [facility] Heart rate 2022-02-20 17:08:00 80 /min Universi ty of [facility] Body temperature 2022-02-20 17:08:00 36.67 Marcia Univ ersity of [facility] Respiratory rate 2022-02-20 17:08:00 18 /min Univ ersity of [facility] Body height 2022-02-20 17:08:00 152.4 cm Universi ty of [facility] Body weight 2022-02-20 17:08:00 63.248 kg Universi ty of [facility] BMI 2022-02-20 17:08:00 27.23 kg/m2 [facility]i ty of [facility] Systolic blood 2022-01-23 19:10:00 117 mm[Hg] Univer sity of pressure [facility] Diastolic blood 2022-01-23 19:10:00 74 mm[Hg] Unive rsity of pressure [facility] Heart rate 2022-01-23 19:10:00 75 /min Universi ty of [facility] Body temperature 2022-01-23 19:10:00 36.56 Marcia Univ ersity of [facility] Respiratory rate 2022-01-23 19:10:00 16 /min Univ ersity of [facility] Body height 2022-01-23 19:10:00 152.4 cm Universi ty of [facility] Body weight 2022-01-23 19:10:00 62.143 kg Universi ty of [facility] BMI 2022-01-23 19:10:00 26.76 kg/m2 Universi ty of [facility] Systolic blood 2021-10-09 13:27:00 123 mm[Hg] Univer sity of pressure [facility] Diastolic blood 2021-10-09 13:27:00 76 mm[Hg] Unive rsity of pressure [facility] Heart rate 2021-10-09 13:27:00 88 /min Universi ty of [facility] Body temperature 2021-10-09 13:27:00 37.39 Marcia Univ ersity of [facility] Respiratory rate 2021-10-09 13:27:00 18 /min Univ ersity of [facility] Body height 2021-10-09 13:27:00 152.4 cm Universi ty of [facility] Body weight 2021-10-09 13:27:00 56.7 kg Universi ty of [facility] BMI 2021-10-09 13:27:00 24.41 kg/m2 Universi ty of [facility] Oxygen saturation in 2021-10-09 13:27:00 99 /min University Arterial blood by [facility] Pulse oximetry Branch Systolic blood 2021-03-13 19:40:00 110 mm[Hg] Univer sity of pressure [facility] Diastolic blood 2021-03-13 19:40:00 74 mm[Hg] Unive rsity of pressure [facility] Heart rate 2021-03-13 19:40:00 86 /min Universi ty of [facility] Body temperature 2021-03-13 19:40:00 37.06 Marcia Univ ersity of [facility] Respiratory rate 2021-03-13 19:40:00 16 /min Univ ersity of [facility] Body height 2021-03-13 19:40:00 152.4 cm Universi ty of [facility] Body weight 2021-03-13 19:40:00 64.921 kg Universi ty of [facility] BMI 2021-03-13 19:40:00 27.95 kg/m2 Universi ty of [facility] BP Diastolic 2018-05-24 00:00:00 64 mm[Hg] [facility] Height 2018-05-24 00:00:00 61.5 [in_i] [facility] BMI (Body Mass 2018-05-24 00:00:00 20 kg/m2 [facility] BP Systolic 2018-05-24 00:00:00 122 mm[Hg] [facility] Body Weight 2018-05-24 00:00:00 107.8 [lb_av] [facility] Procedures Procedure Date / Time Performed Performing Clinician [facility] e CBC WITH DIFF 2022-08-14 08:55:00 [facility] VENOUS CORD GAS 2022-08-13 21:23:00 [facility] CBC WITH DIFF 2022-08-13 21:02:00 [facility] HEPATITIS B SURFACE 2022-08-13 21:02:00 [facility] ANTIGEN [facility] HB ABO GROUPING 2022-08-13 21:02:00 [facility] RHO (D) IMMUNE 2022-08-13 21:02:00 [facility] SYPHILIS IGG/IGM 2022-08-13 21:02:[address] [facility] URINALYSIS 2022-08-13 00:54:00 Chandrakant Mcghee [facility] POCT URINALYSIS 2022-08-08 20:06:00 Maldonado Kolb [facility] POCT URINALYSIS 2022-08-08 20:05:00 Maldonado Kolb [facility] POCT URINALYSIS 2022-07-24 20:07:00 Maldonado Kolb [facility] POCT URINALYSIS 2022-07-10 15:26:00 Maldonado Kolb [facility] TDAP VACCINE, >11 YRS, 2022-06-27 16:13:16 Maldonado Kolb [facility] POCT URINALYSIS 2022-06-27 00:00:00 Maldonado Kolb [facility] POCT URINALYSIS 2022-06-12 16:52:00 Maldonado Kolb [facility] POCT URINALYSIS 2022-05-15 17:10:00 Maldonado Kolb [facility] POCT URINALYSIS 2022-04-17 17:15:00 Maldonado Kolb [facility] POCT MOLECULAR FLU 2022-03-20 17:52:00 Maldonado Kolb [facility] POCT URINALYSIS 2022-02-20 17:09:00 Maldonado Kolb [facility] GALV ONLY - VAGINAL 2022-01-23 20:43:00 Ramonita Alvarez [facility] PATHOGENS BY NUCLEIC Medical Bra nch ACID TESTING GLUCOSE 1 HOUR POST 2022-01-23 20:14:00 Ramonita Alvarez [facility] CBC WITH DIFF 2022-01-23 20:14:00 Ramonita Alvarez [facility] RUBELLA SCREEN IGG 2022-01-23 20:14:00 Ramonita Alvarez [facility] VZV ANTIBODY SCREEN 2022-01-23 20:14:[address] [facility] HEPATITIS B SURFACE 2022-01-23 20:14:00 Ramonita Alvarez [facility] HB ABO GROUPING 2022-01-23 20:14:00 Ramonita Alvarez [facility] URINE CULTURE 2022-01-23 20:14:00 Ramonita Alvarez [facility] HIV 1/2 AG-AB WITH 2022-01-23 20:14:00 Ramonita Alvarez [facility] SYPHILIS IGG/IGM 2022-01-23 20:14:00 Ramonita Alvarez [facility] ASSIGNMENT OF BENEFITS 2022-01-23 18:37:35 Doctor Unassigned, No [facility] POCT TEST 2022-01-23 00:00:[address] [facility] POCT URINALYSIS W/O 2022-01-23 00:00:00 Ramonita Alvarez [facility] SPECIFIC GRAVITY [facility] XR KNEE <3 VW RIGHT 2021-10-09 13:50:[address] [facility] POCT TEST 2021-03-13 19:50:00 Susan Lepe [facility] Plan of Care Planned Activity Planned Date Details Comments Source Instructions [facility] Encounters Start End Encounter Admission Attending Care Care Encounter Source Date/Time Date/Time Type Type Clinicians Facility Department ID 2021-02-12 Outpatient [facility] [id number] Univers 07:47:03 [facility] 2022-09-30 2022-09-30 Outpatient R CORTEZ [facility] [id number] Univers 14:15:00 14:15:00 MARILYN [facility] 2022-09-03 2022-09-03 Outpatient R KENNEDI, [facility] [id number] Univers 10:30:00 11:22:04 MALDONADOABIMBOLA staton o f [facility] 2022-09-03 2022-09-03 Routine Lalitjennifer, [facility] [id number] Univers 10:30:00 11:22:04 Maldonado Martinez [employer] [id number] ity of Visit REGIONAL [id number] Danny as MATERNAL [id number] [facility] ical & CHILD [address] [place] [address] 2022-08-22 2022-08-22 Outpatient R KENNEDI, [facility] [id number] Univers 08:45:00 08:45:00 MALDONADO ity o f [facility] 2022-08-13 2022-08-15 Inpatient P JIMBO BAKER [facility] IZZY [id number] Univers 15:41:00 13:16:00 JIMBO BAKER [facility] 2022-08-13 2022-08-15 [facility] KAILASH Baker [id number] Univers 15:41:00 13:16:00 Encounter Jimbo SNEED 350.1.13.10 [facility] [id number] Danny as [id number] [facility] [address] 2022-08-12 2022-08-13 Outpatient Anastasiia VARGAS PAERIK IZZY [id number] Univers 18:42:00 06:23:00 MONTENEGRO ity of [facility] 2022-08-12 2022-08-13 [facility] AliciaKAILASH [id number] Univers 18:42:00 06:23:00 Encounter Cheyanne SNEED 350.1.13.10 [facility] 4.2.7.2.686 Danny as [id number] [facility] [address] 2022-08-13 2022-08-13 [facility] [id number] Univers 00:00:00 00:00:00 Maldonado Martinez [employer] 350.1.13.10 ity of [facility] [id number] Danny as MATERNAL [id number] Med ical & CHILD [address] [place] [address] 2022-08-08 2022-08-08 [facility] [id number] Univers 14:45:00 15:55:18 MALDONADO staton o f [facility] 2022-08-08 2022-08-08 [facility] [id number] Univers 14:45:00 15:55:18 Maldonado Martinez [employer] 350.1.13.10 ity of Visit [facility] [id number] Danny as MATERNAL [id number] [facility] ical & CHILD [address] [place] [address] 2022-08-07 2022-08-07 Outpatient R KENNEDI, [facility] [id number] Univers 07:45:00 07:45:00 MALDONADO ity o f [facility] 2022-07-30 2022-07-30 Coat Presser Ultrasound, [facility] 1.2 .840.114 [id number] Univers 10:30:00 10:44:47 Visit Monae Domingo [employer] 350.1. 13.10 ity of Cheyanne Vargas REGIONAL 4.2.7.2.686 [place] MATERNAL [id number] [facility] & CHILD [address] [facility] 2022-07-30 2022-07-30 Outpatient P ALICIA [facility] [id number] Univers 10:30:00 10:30:00 MONTENEGRO ity [facility] 2022-07-30 2022-07-30 Case [facility] [id number] Univers 00:00:00 00:00:00 Management Ramonita Martinez [employer] 350.1.13.10 ity of REGIONAL 4.2.7.2.686 Danny as MATERNAL [id number] [facility] & CHILD [address] [facility] 2022-07-24 2022-07-24 Outpatient R LALITREPLACED BY [facility], [facility] [id number] Univers 14:45:00 15:18:[address] [facility] 2022-07-24 2022-07-24 [facility] [id number] Univers 14:45:00 15:18:14 Maldonado C [employer] 350.1.13.10 ity of Visit REGIONAL 4.2.7.2.686 Danny as MATERNAL [id number] [facility] & [address] 2022-07-10 2022-07-10 Outpatient R AKINREPLACED BY [facility], [facility] [id number] Univers 10:00:00 10:47:15 MALDONADO ity o f [facility] 2022-07-10 2022-07-10 Routine Akinpe, [facility] [id number] Univers 10:00:00 10:47:15 Maldonado C [employer] 350.1.13.10 ity of Visit REGIONAL 4.2.7.2.686 Danny as MATERNAL [id number] [facility] & CHILD [address] [place] [address] 2022-07-03 2022-07-03 Case [facility], [facility] [id number] Univers 00:00:00 00:00:00 Management Ramonita Martinez [employer] 350.1.13.10 ity of REGIONAL 4.2.7.2.686 Danny as MATERNAL [id number] [facility] ical & CHILD [address] [facility] 2022-07-02 2022-07-02 Coat Presser Ultrasound[facility] 1.2 .840.114 [id number] Univers 10:15:00 10:45:00 Visit Jesus Monae Cisneros [employer] 350.1. 13.10 ity of REGIONAL [id number] Danny as MATERNAL [id number] [facility] & CHILD [address] [facility] 2022-07-02 2022-07-02 Outpatient P JESUS [facility] [id number] Univers 10:15:00 10:15:00 IAN it y of SMONAE [facility] 2022-06-27 2022-06-27 Outpatient R KENNEDI, [facility] [id number] Univers 11:00:00 11:37:21 MALDONADO staton o nakita [facility] 2022-06-27 2022-06-27 [facility] [id number] Univers 11:00:00 11:37:21 Maldonado Martinez [employer] 350.1.13.10 ity of Visit REGIONAL 4.2.7.2.686 Danny as MATERNAL [id number] [facility] & CHILD [address] [place] [address] 2022-06-18 2022-06-18 [facility] 1.2.840. [id number] Univers 08:00:00 13:07:53 Visit Maldonado Kolb [employer] 350.1.13. 10 ity of REGIONAL [id number] Danny as MATERNAL [id number] [facility] CHILD [address] [place] [address] 2022-06-18 2022-06-18 Outpatient R KENNEDI, [facility] [id number] Univers 08:00:00 08:00:00 MALDONADO ity o f [facility] 2022-06-13 2022-06-[address] [facility] [id number] [id number] Univers 00:00:00 00:00:00 Maldonado C [employer] 350.1.13.10 ity of REGIONAL 4.2.7.2.686 Danny as MATERNAL [id number] [facility] & [address] 2022-06-12 2022-06-12 Outpatient [facility] [id number] Univers 10:30:00 11:23:12 MALDONADO ity o f [facility] 2022-06-12 2022-06-[address] [facility] 1.2.995.246 [id number] Univers 10:30:00 11:23:12 Maldonado C GOLD LEAF GILDER 350.1.13.10 ity of Visit REGIONAL 4.2.7.2.686 Danny as MATERNAL [id number] [address] 2022-05-15 2022-05-15 [facility] [id number] Univers 10:30:00 11:57:35 MALDONADO ity o f [facility] 2022-05-15 2022-05-[address] [facility] 1.2.810.044 [id number] Univers 10:30:00 11:57:35 Maldonado C GOLD LEAF GILDER 350.1.13.10 ity of Visit REGIONAL 4.2.7.2.686 Danny as MATERNAL [id number] [facility] & CHILD [address] [place] [address] 2022-05-07 2022-05-07 Case [facility] 1.2.840.114 [id number] Univers 00:00:00 00:00:00 Management Ramonita C GOLD LEAF GILDER 350.1.13.10 ity of REGIONAL 4.2.7.2.686 Danny as MATERNAL [phone] [facility] & CHILD [address] [place] [address] 2022-05-05 2022-05-05 Case [facility] 1.2.840.114 [id number] Univers 00:00:00 00:00:00 Management Ramonita C GOLD LEAF GILDER 350.1.13.10 ity of REGIONAL 4.2.7.2.686 Danny as MATERNAL [id number] [facility] CHILD 109 [facility] 2022-05-01 2022-05-01 Coat Presser Ultrasound, Adryan [facility] 1.2 .840.114 [id number] Univers 10:00:00 11:00:00 Visit Avni Rosales Latasha G[employer] LEAF GILDER 350.1. 13.10 ity of REGIONAL 4.2.7.2.686 Danny as MATERNAL [id number] [facility] & CHILD 369 [facility] 2022-05-01 2022-05-01 Outpatient P BOBBY [facility] [id number] Univers 10:00:00 10:00:00 CHASEY ity [facility] 2022-04-17 2022-04-17 Outpatient R AKINSIPE, [facility] [id number] Univers 11:00:00 11:37:[address] [facility] 2022-04-17 2022-04-17 Routine Akinpe, [facility] 1.2.933.264 [id number] Univers 11:00:00 11:37:51 Maldonado C GOLD LEAF GILDER 350.1.13.10 ity of Visit REGIONAL 4.2.7.2.686 Danny as MATERNAL [id number] [facility] & [address] 2022-03-20 2022-03-20 Outpatient R AKINSIPE, [facility] [id number] Univers 11:00:00 12:04:[address] [facility] 2022-03-20 2022-03-20 Routine Akinsipe, [facility] 1.2.647.864 [id number] Univers 11:00:00 12:04:59 Maldonado C GOLD LEAF GILDER 350.1.13.10 ity of Visit REGIONAL 4.2.7.2.686 Danny as MATERNAL [phone] [facility] & [address] 2022-03-11 2022-03-11 Telephone Akinsipe, [facility] 1.2.840.114 [id number] Univers 00:00:00 00:00:00 Maldonado C GOLD LEAF GILDER 350.1.13.10 ity of REGIONAL 4.2.7.2.686 Danny as MATERNAL [id number] [facility] & CHILD [address] [place] [address] 2022-02-20 2022-02-20 Routine Kennedi, [facility] 1.2.938.010 [id number] Univers 11:00:00 11:15:00 Maldonado C GOLD LEAF GILDER 350.1.13.10 ity of Visit REGIONAL 4.2.7.2.686 Danny as MATERNAL [id number] [facility] & CHILD [address] [place] [address] 2022-02-20 2022-02-20 Coat Presser Ultrasound, Adryan [facility] 1.2 .840.114 [id number] Univers 10:30:00 11:00:00 Visit Jimbo Baker G[employer] LEAF GILDER 350.1.13.10 ity of REGIONAL 4.2.7.2.686 Danny as MATERNAL [id number] [facility] CHILD [address] [facility] 2022-02-20 2022-02-20 Outpatient Anastasiia BAKER [facility] [id number] Univers 10:30:00 10:59:36 JIMBO ity of [facility] 2022-02-20 2022-02-20 [facility] 1.2.840.114 [id number] [facility] 00:00:00 00:00:00 Management Ramonita Martinez G[employer] LEAF GILDER 350.1.13.10 ity of REGIONAL 4.2.7.2.686 Danny as MATERNAL [id number] [facility] & CHILD [address] [facility] 2022-01-23 2022-01-23 Outpatient R KENNEDI [facility] [id number] Univers 13:45:00 15:00:54 MALDONADO staton o f [facility] 2022-01-23 2022-01-23 Initial Provider, Lito [facility] 1 .2.840.114 [id number] Univers 13:45:00 15:00:54 Maldonado Kolb GOLD LEAF GILDER 350.1.13 .10 ity of Visit REGIONAL 4.2.7.2.686 Danny as MATERNAL [phone] [facility] & CHILD [address] [place] [address] 2022-01-23 2022-01-23 Orders Doctor KAILASH 1.2.840.114 [id number] Univers 00:00:00 00:00:00 Only Unassigned, NEDRA 350.1.13.10 ity of [facility] 4.2.7.2.686 Danny as [id number] [facility] [address] [place] 2021-10-09 2021-10-09 Emergency Singer [facility] 1.2.172.751 [id number] Univers 08:34:00 09:26:00 Victorino BARNARD 350.1.13.10 i ty of [place] 4.2.7.2.686 [place] [facility] [id number] [facility] [address] [place] 2021-10-09 2021-10-09 Emergency X [facility] ERT [id number] Univers 08:34:00 09:26:00 VICTORINO staton [facility] 2021-03-13 2021-03-13 Office [facility] 1.2.451.166 [id number] Univers 13:26:41 14:00:19 Visit Susan Reynolds GOLD LEAF GILDER 350.1.13.10 it y of [facility] 4.2.7.2.686 Danny as MATERNAL [id number] [address] 2021-03-13 2021-03-13 [facility] [id number] Univers 12:45:00 14:00:19 SUSAN staton [facility] 2021-02-20 2021-02-20 [facility] 1.2.628.003 [id number] Univers 13:12:24 13:58:21 Susan Reynolds GOLD LEAF GILDER 350.1.13.10 i ty of Visit [facility] 4.2.7.2.686 Danny as MATERNAL [id number] [facility] & CHILD [address] [place] [address] 2021-02-20 2021-02-20 Outpatient R SHERLEY [facility] [id number] Univers 12:45:00 13:58:21 SUSAN staotn [facility] 2021-01-31 2021-01-31 Outpatient R [facility] [id number] Univers 09:15:00 09:15:00 ity of [facility] 2021-01-29 2021-01-30 Hospital KAILASH Angulo 1.2.201.960 [id number] Univers 03:01:00 14:41:00 Encounter Obed SNEED 350.1.13.10 ity of HOSPITAL 4.2.7.2.686 Danny as [id number] [facility] [address] [place] 2021-01-30 2021-01-30 1.2.840.1 1.2.840.114 [id number] Univers 00:00:00 00:00:00 Encounter 03502.1.1 350.1.13.10 ity of .104.2.7 [place]7.2.696 [place][id number] [address] [facility] [place] 2021-01-29 2021-01-29 Anesthesia [facility] 1.2.840. 114 [id number] Univers 05:55:00 09:58:00 Event Kina Modi 350.1.13.1 0 ity of HOSPITAL 4.2.7.2.686 Danny as [id number] [facility] [address] [place] 2021-01-23 2021-01-23 Routine Provider, Lito [facility] 1 .2.840.114 [id number] Univers 09:52:10 10:30:07 Jorge Samano GOLD LEAF GILDER 350.1.13 .10 ity of Visit REGIONAL 4.2.7.2.686 Danny as MATERNAL [id number] [facility] & CHILD [address] [place] [address] 2021-01-23 2021-01-23 Outpatient R LUCIO [facility] [id number] Univers 09:45:00 09:45:00 JORGE staton o f [facility] 2021-01-17 2021-01-17 Routine Provider, Alexandreanastasiia [facility] 1 .2.840.114 [id number] Univers 11:09:03 11:32:40 Susan Lepe GOLD LEAF GILDER 350.1.13.10 ity of Visit REGIONAL 4.2.7.2.686 Danny as MATERNAL [id number] [facility] & CHILD [address] [place] [address] 2021-01-17 2021-01-17 Outpatient Kiran LEPE [facility] [id number] Univers 11:00:00 11:00:00 SUSAN paul [facility] 2021-01-10 2021-01-10 [facility] 1.2.710.811 [id number] Univers 11:02:34 11:36:28 Susan Rodolfo GOLD LEAF GILDER 350.1.13.10 i ty of Visit REGIONAL 4.2.7.2.686 Danny as MATERNAL [id number] [facility] & [address] 2021-01-10 2021-01-10 Outpatient Kiran LEPE [facility] [id number] Univers 11:00:00 11:00:00 SUSAN [facility] 2021-01-02 2021-01-02 [facility] 1.2.325.780 [id number] Univers 14:05:08 14:30:07 Maldonado C GOLD LEAF GILDER 350.1.13.10 ity of Visit REGIONAL 4.2.7.2.686 Danny as MATERNAL [id number] [address] 2021-01-02 2021-01-02 Outpatient R KENNEDI [facility] [id number] Univers 14:00:00 14:00:00 MALDONADO ity o f [facility] 2020-12-26 2020-12-26 Outpatient R KENNEDI [facility] [id number] Univers 13:00:00 13:00:00 MALDONADO ity o f [facility] 2020-12-19 2020-12-19 [facility] 1.2.668.476 [id number] Univers 13:12:40 14:30:44 Maldonado C GOLD LEAF GILDER 350.1.13.10 ity of Visit REGIONAL 4.2.7.2.686 Danny as MATERNAL [id number] [facility] & [address] 2020-12-19 2020-12-19 Routine [facility] 1.2.801.246 [id number] Univers 13:12:40 14:30:44 Maldonado C GOLD LEAF GILDER 350.1.13.10 ity of Visit REGIONAL 4.2.7.2.686 Danny as MATERNAL [id number] [facility] & CHILD [address] [place] [address] 2020-12-19 2020-12-19 [facility] [id number] Univers 14:00:00 14:00:00 MALDONADO ity o f [facility] 2020-12-19 2020-12-[address] [facility] 1.2.840.114 [id number] Univers 00:00:00 00:00:00 Maldonado C GOLD LEAF GILDER 350.1.13.10 ity of REGIONAL 4.2.7.2.686 Danny as MATERNAL [id number] [facility] CHILD [address] [place] [address] 2020-12-19 2020-12-[address] [facility] 1.2.883.405 [id number] Univers 00:00:00 00:00:00 (Out) Maldonado C GOLD LEAF GILDER 350.1.13.10 ity of REGIONAL 4.2.7.2.686 Danny as MATERNAL [id number] [facility] & CHILD [address] [place] [address] 2020-12-19 2020-12-[address] [facility] 1.2.840.114 [id number] Univers 00:00:00 00:00:00 Maldonado C GOLD LEAF GILDER 350.1.13.10 ity of REGIONAL 4.2.7.2.686 Danny as MATERNAL [id number] [facility] & CHILD [address] [place] [address] 2020-12-19 2020-12-[address] [facility] 1.2.066.455 [id number] Univers 00:00:00 00:00:00 (Out) Maldonado C GOLD LEAF GILDER 350.1.13.10 ity of REGIONAL 4.2.7.2.686 Danny as MATERNAL [id number] [facility] & CHILD [address] [place] [address] 2020-12-12 2020-12-[address] [facility] 1.2.654.453 [id number] Univers 12:53:31 13:08:31 Maldonado C GOLD LEAF GILDER 350.1.13.10 ity of Visit REGIONAL 4.2.7.2.686 Danny as MATERNAL [id number] [facility] & CHILD [address] [place] [address] 2020-12-12 2020-12-[address] [facility] 1.2.769.689 [id number] Univers 12:53:31 13:08:31 Maldonado C GOLD LEAF GILDER 350.1.13.10 ity of Visit REGIONAL 4.2.7.2.686 Danny as MATERNAL [id number] [facility] & [address] 2020-12-12 2020-12-12 [facility] [id number] Univers 12:45:00 12:45:[address] [facility] 2020-11-27 2020-11-[address] [facility] 1.2.701.932 [id number] Univers 15:08:20 15:52:25 Maldonado C GOLD LEAF GILDER 350.1.13.10 ity of Visit REGIONAL 4.2.7.2.686 Danny as MATERNAL [id number] [address] 2020-11-27 2020-11-27 [facility] [id number] Univers 15:00:00 15:00:00 MALDONADO ity o f [facility] 2020-11-13 2020-11-[address] [facility] 1.2.625.037 [id number] Univers 11:02:16 11:48:46 Maldonado C GOLD LEAF GILDER 350.1.13.10 ity of Visit REGIONAL 4.2.7.2.686 Danny as MATERNAL [id number] [address] 2020-11-13 2020-11-13 [facility] [id number] Univers 11:00:00 11:00:00 MALDONADO ity o f [facility] 2020-10-24 2020-10-[address] [facility] 1.2.840.114 [id number] Univers 00:00:00 00:00:00 Maldonado C GOLD LEAF GILDER 350.1.13.10 ity of REGIONAL 4.2.7.2.686 Danny as MATERNAL [id number] [facility] & CHILD [address] [place] [address] 2020-10-23 2020-10-23 [facility] 1.2.021.935 [id number] Univers 13:02:19 13:29:04 Maldonado C GOLD LEAF GILDER 350.1.13.10 ity of Visit REGIONAL 4.2.7.2.686 Danny as MATERNAL [id number] [address] 2020-10-23 2020-10-23 [facility] [id number] Univers 12:45:00 12:45:00 MALDONADO ity o f [facility] 2020-10-19 2020-10-[address] [facility] 1.2.840.114 [id number] Univers 00:00:00 00:00:00 Maldonado C GOLD LEAF GILDER 350.1.13.10 ity of REGIONAL 4.2.7.2.686 Danny as MATERNAL [id number] [address] 2020-10-17 2020-10-17 Coat Presser Ultrasound, [facility] 1.2 .840.114 [id number] Univers 13:02:25 13:47:25 Visit Martha Leon GOLD LEAF GILDER 350.1.13.10 ity of REGIONAL 4.2.7.2.686 Danny as MATERNAL [id number] [facility] & CHILD [address] [place] [address] 2020-10-17 2020-10-17 Outpatient P [facility] [id number] Univers 13:00:00 13:00:00 ity of [facility] 2020-09-25 2020-09-25 [facility] 1.2.736.905 [id number] Univers 14:02:19 14:59:04 Maldonado C GOLD LEAF GILDER 350.1.13.10 ity of Visit REGIONAL 4.2.7.2.686 Danny as MATERNAL [id number] [facility] & CHILD [address] [place] [address] 2020-09-25 2020-09-25 Outpatient R KENNEDI [facility] [id number] Univers 14:00:00 14:00:00 MALDONADO ity o f [facility] 2020-09-07 2020-09-07 Abstract Kennedi, [facility] 1.2.840.114 [id number] Univers 00:00:00 00:00:00 Maldondao Martinez GOLD LEAF GILDER 350.1.13.10 ity of [facility] 4.2.7.2.686 Danny as MATERNAL [id number] [facility] & CHILD [address] [place] [address] 2020-09-05 2020-09-05 Coat Presser Ultrasound, Adryan [facility] 1.2 .840.114 [id number] Univers 13:37:54 14:37:54 Visit Monae Domingo GOLD LEAF GILDER 350.1. 13.10 ity of [facility] 4.2.7.2.686 Danny as MATERNAL [id number] [facility] & CHILD [address] [facility] 2020-09-05 2020-09-05 Outpatient P [facility] [id number] Univers 13:30:00 13:30:00 ity of [facility] 2020-09-05 2020-09-05 Orders Doctor KAILASH 1.2.840.114 [id number] Univers 00:00:00 00:00:00 Only Unassigned, NEDRA 350.1.13.10 ity of [facility] 4.2.7.2.686 Danny as [id number] [address] 2020-08-28 2020-08-[address] [facility], [facility] 1.2.237.170 [id number] Univers 14:49:24 15:45:27 Maldonado Martinez GOLD LEAF GILDER 350.1.13.10 ity of Visit [facility] 4.2.7.2.686 Danny as MATERNAL [id number] [facility] & CHILD [address] [place] [address] 2020-08-28 2020-08-28 Outpatient R KENNEDI [facility] [id number] Univers 15:00:00 15:00:00 MALDONADO staton o f [facility] 2020-08-01 2020-08-01 Coat Presser 1, [facility] 1.2. 840.114 [id number] Univers 13:22:33 14:07:33 Visit Cheyanne Vargas GOLD LEAF GILDER 350.1.13.10 ity of REGIONAL 4.2.7.2.686 Danny as MATERNAL [id number] Med ical & CHILD [address] [place] [address] 2020-08-01 2020-08-01 Coat Presser Lab, [facility] 1.2.840. 114 [id number] Univers 13:22:53 13:52:36 Visit Isamar Grant GOLD LEAF GILDER 350.1.13.10 ity of REGIONAL 4.2.7.2.686 Danny as MATERNAL [id number] [facility] CHILD [address] [place] [address] 2020-08-01 2020-08-01 Coat Presser Lab, [facility] 1.2.840.114 [id number] 13:22:53 13:52:36 Visit [facility] GOLD LEAF GILDER 350.1.13.10 REGIONAL 4.2.7.2.686 MATERNAL [id number] & [address] 2020-08-01 2020-08-01 Outpatient P [facility] [id number] Univers 13:00:00 13:00:00 ity of [facility] 2020-08-01 2020-08-01 Abstract [facility] 1.2.840.114 [id number] Univers 00:00:00 00:00:00 Maldonado C GOLD LEAF GILDER 350.1.13.10 ity of REGIONAL 4.2.7.2.686 Danny as MATERNAL [id number] [facility] & CHILD [address] [place] [address] 2020-07-31 2020-07-31 Routine Kennedi [facility] 1.2.134.480 [id number] Univers 15:09:28 15:52:50 Maldonado C GOLD LEAF GILDER 350.1.13.10 ity of Visit REGIONAL 4.2.7.2.686 Danny as MATERNAL [id number] Med ical & CHILD [address] [place] [address] 2020-07-31 2020-07-31 [facility] [id number] Univers 15:15:00 15:15:00 MALDONADO brionna mcnair nakita [facility] 2020-07-04 2020-07-[address] [facility] 1.2.840.114 [id number] Univers 00:00:00 00:00:00 Maldonado Martinez GOLD LEAF GILDER 350.1.13.10 ity of [facility] 4.2.7.2.686 Danny as MATERNAL [id number] [facility] & CHILD [address] [place] [address] 2020-06-29 2020-06-[address] [facility] 1.2.492.975 [id number] Univers 14:35:06 15:51:10 Maldonado Martinez GOLD LEAF GILDER 350.1.13.10 ity of Visit [facility] 4.2.7.2.686 Danny as MATERNAL [id number] [facility] & [address] 2020-06-29 2020-06-29 [facility] [id number] Univers 14:00:00 14:00:00 MALDONADO brionna mcnair nakita [facility] 2020-06-29 2020-06-29 Orders Doctor KAILASH 1.2.840.114 [id number] Univers 00:00:00 00:00:00 Only Unassigned, NEDRA 350.1.13.10 ity of [place] [address].2.7.2.686 Danny as [phone] [address] 2018-05-24 2018-05-24 Rosalina Mcnair [facility] [place] - 457459-6 [place] 00:00:00 00:00:00 [facility] [address] Christopher maldonado MD: [id number] [facility], [facility] - [address], [place] [address] , Ph. Results Test Description Test Time Test Comments Results Result Comments Source GALV ONLY - SYPHILIS IGG/IGM 2022-08-14 15:41:20 Test Item Value Reference Range Interpretation Comme nts Syphilis IgG/IgM (test code = Non-reactive Non-reactive 20336-4) LISET (test code = LISET) Non-reactive - No serologic evidence of T. pallidum infection. Cannot exclude incubating or early syphilis. Submit a second specimen in 2-4 weeks if syphilis is clinically suspected. Equivocal - Further testing to follow. Reactive - Further testing to follow. Lab Interpretation (test code = Normal 56713-1) [facility] IMMUNE [id number] 00:21:37 Test Item Value Reference Range Interpretation Comments RHIG CANDIDATE? No- see comment Patient i s not a (test code = candidate for R hIg- 5188) Patient is Rh Positive.Perfor med at [facility] Laboratory Services - [facility] Blood [address] [address]Unjz Free: [phone] A No. [id number] [facility]andHepatitis B Surface [id number] 22:24:58 Test Item Value Reference Range Interpretation Comments HBsAg Semi-Quantitative (test code = 0.05 Negative 5195-3) [facility]and[facility] CORD [id number] 21:34:15 Test Item Value Reference Range Interpretation Comments VENOUS BASE EXCESS, -2.5 mEq/L CORD (test code = 3515145812) VENOUS PH, CORD (test 7.34 7.25-7.45 code = 7477462655) VENOUS PC02, CORD 45 See_Comment [Automate d message] The (test code = system which ge nerated 0252982109) this result tra nsmitted reference range : 27 - 49 mmHg. The refer ence range was not used to interpret this result as normal/abnormal . VENOUS PO2, CORD (test 18 See_Comment [Aut omated message] The code = 5710506859) system wh ich generated this result tra nsmitted reference range : 17 - 41 mmHg. The refer ence range was not used to interpret this result as normal/abnormal . VENOUS BICARBONATE, 24 See_Comment QUES [Au tomated message] CORD (test code = The system which generated 0974536449) this result tra nsmitted reference range : 12 - 29 mEq/L. The refe rence range was not used to interpret this result as normal/abnormal . [facility] CORD [id number] 21:33:59 Test Item Value Reference Range Interpretation Comments BASE EXCESS, CORD (test 0.1 mEq/L QUES code = 2362428273) AC PH, CORD (BEAKER) 7.32 7.18-7.38 (test code = 5052137298) PC02, CORD (test code = 56 See_Comment [Au tomated message] [id number]) The system [employer] generated this result transmitted ref erence range: 32 - 66 mmHg. The reference r keith was not used to interpret this result as normal/abnor mal. PO2, CORD (test code = 13 See_Comment [Aut omated message] 3702739557) The system [employer] generated this result transmitted ref erence range: 10 - 30 mmHg. The reference r keith was not used to interpret this result as normal/abnor mal. BICARBONATE, CORD (test 28 See_Comment H [Au tomated message] code = 0188398278) The syste m which generated this result transmitted ref erence range: 17 - 27 mEq/L. The reference r keith was not used to interpret this result as normal/abnor mal. Lab Interpretation (test Abnormal code = 84563-8) [facility]andType and Screen - ONCE [id number] 21:23:00 Test Item Value Reference Range Interpretation Comments ABO & RH (test code = 20) B POSITIVE IAT (test code = 1185) Negative [facility]andCBC with [id number] 21:20:46 Test Item Value Reference Range Interpretation Comments WBC (test code = 12.20 See_Comment H [Automated 9457-2) message] The system which generated this result transmit nelda reference range : 4.30 - 11.10 10*3/?L. The reference range was not used to interpret this result as normal/abnormal . RBC (test code = 4.05 See_Comment [Automated 987-8) message] The system which generated this result transmit nelda reference range : 3.93 - 5.25 10*6/?L. The reference range was not used to interpret this result as normal/abnormal . HGB (test code = 12.0 g/dL 11.6-15.0 718-7) HCT (test code = 35.7 % 35.7-45.2 4544-3) MCV (test code = 88.1 fL 80.6-95.5 787-2) MCH (test code = 29.6 pg 25.9-32.8 785-6) MCHC (test code = 33.6 g/dL 31.6-35.1 786-4) RDW-SD (test code = 43.9 fL 39.0-49.9 49027-7) RDW-CV (test code = 13.6 % 12.0-15.5 788-0) PLT (test code = 134 See_Comment L [Automated 777-3) message] The system which generated this result transmit nelda reference range : 166 - 358 10*3/ ?L. The reference range was not u sed to interpret th is result as normal/abnormal . MPV (test code = 12.6 fL 9.5-12.9 62214-3) NRBC/100 WBC (test 0.0 See_Comment [Automat ed code = [id number]) message] The system which generated this result transmit nelda reference range : 0.0 - 10.0 /100 WBCs. The reference range was not used to interpret this result as normal/abnormal . NRBC x10^3 (test code See_Comment [Auto mated = [id number]) message] The system which generated this result transmit nelda reference range : 10*3/?L. The reference range was not used to interpret this result as normal/abnormal . GRAN MAT (NEUT) % 82.6 % (test code = 770-8) IMM GRAN % (test code 0.40 % = [id number]) LYMPH % (test code = 11.1 % 736-9) MONO % (test code = 4.8 % 5905-5) EOS % (test code = 0.9 % 713-8) BASO % (test code = 0.2 % 706-2) GRAN MAT x10^3(ANC) 10.08 10*3/uL 1.88-7.09 H (test code = [id number]) IMM GRAN x10^3 (test 0.05 10*3/uL 0.00-0.06 code = [id number]) LYMPH x10^3 (test code 1.36 10*3/uL 1.32-3.29 = 731-0) MONO x10^3 (test code 0.58 10*3/uL 0.33-0.92 = 742-7) EOS x10^3 (test code = 0.11 10*3/uL 0.03-0.39 711-2) BASO x10^3 (test code 0.01-0.07 = 704-7) Lab Interpretation Abnormal (test code = 01012-2) [facility] URINALYSIS W SPECIFIC [id number] 20:06:00 Test Item Value Reference Range Interpretation Comments POCT U SP GRAV (test code = 3255) . 1.005-1.025 POCT PH U (test code = 3254) . 5-8 POCT U LEUK EST (test code = 3263) . Negative - Negative POCT U NIT (test code = 3262) . Negative - Negative POCT U PROT (test code = 3259) trace Negative - Negative POCT U GLU (test code = 3256) neg Negative - Negative POCT U KETONE (test code = 3258) . Negative - Negative POCT U UROBILI (test code = 3260) . 0.2-1 POCT U BILI (test code = 3261) . Negative - Negative POCT U BLD (test code = 3257) . Negative - Negative POCT U COLOR (test code = 3266) . POCT U APPEAR (test code = 3267) . [facility] URINALYSIS W SPECIFIC [id number] 20:06:00 Test Item Value Reference Range Interpretation Comments POCT U SP GRAV (test code = 3255) . 1.005-1.025 POCT PH U (test code = 3254) . 5-8 POCT U LEUK EST (test code = 3263) . Negative - Negative POCT U NIT (test code = 3262) . Negative - Negative POCT U PROT (test code = 3259) trace Negative - Negative POCT U GLU (test code = 3256) neg Negative - Negative POCT U KETONE (test code = 3258) . Negative - Negative POCT U UROBILI (test code = 3260) . 0.2-1 POCT U BILI (test code = 3261) . Negative - Negative POCT U BLD (test code = 3257) . Negative - Negative POCT U COLOR (test code = 3266) . POCT U APPEAR (test code = 3267) . [facility] URINALYSIS W SPECIFIC [id number] 20:05:00 Test Item Value Reference Range Interpretation Comments POCT U SP GRAV (test code = 3255) . 1.005-1.025 POCT PH U (test code = 3254) . 5-8 POCT U LEUK EST (test code = 3263) . Negative - Negative POCT U NIT (test code = 3262) . Negative - Negative POCT U PROT (test code = 3259) . Negative - Negative POCT U GLU (test code = 3256) . Negative - Negative POCT U KETONE (test code = 3258) . Negative - Negative POCT U UROBILI (test code = 3260) . 0.2-1 POCT U BILI (test code = 3261) . Negative - Negative POCT U BLD (test code = 3257) . Negative - Negative POCT U COLOR (test code = 3266) . POCT U APPEAR (test code = 3267) . [facility] URINALYSIS W SPECIFIC [id number] 20:05:00 Test Item Value Reference Range Interpretation Comments POCT U SP GRAV (test code = 3255) . 1.005-1.025 POCT PH U (test code = 3254) . 5-8 POCT U LEUK EST (test code = 3263) . Negative - Negative POCT U NIT (test code = 3262) . Negative - Negative POCT U PROT (test code = 3259) . Negative - Negative POCT U GLU (test code = 3256) . Negative - Negative POCT U KETONE (test code = 3258) . Negative - Negative POCT U UROBILI (test code = 3260) . 0.2-1 POCT U BILI (test code = 3261) . Negative - Negative POCT U BLD (test code = 3257) . Negative - Negative POCT U COLOR (test code = 3266) . POCT U APPEAR (test code = 3267) . [facility] URINALYSIS W SPECIFIC [id number] 20:07:00 Test Item Value Reference Range Interpretation Comments POCT U SP GRAV (test code = 3255) . 1.005-1.025 POCT PH U (test code = 3254) . 5-8 POCT U LEUK EST (test code = 3263) . Negative - Negative POCT U NIT (test code = 3262) . Negative - Negative POCT U PROT (test code = 3259) trace Negative - Negative POCT U GLU (test code = 3256) neg Negative - Negative POCT U KETONE (test code = 3258) . Negative - Negative POCT U UROBILI (test code = 3260) . 0.2-1 POCT U BILI (test code = 3261) . Negative - Negative POCT U BLD (test code = 3257) . Negative - Negative POCT U COLOR (test code = 3266) . POCT U APPEAR (test code = 3267) . [facility] URINALYSIS W SPECIFIC [id number] 15:27:00 Test Item Value Reference Range Interpretation Comments POCT U SP GRAV (test code = 3255) . 1.005-1.025 POCT PH U (test code = 3254) . 5-8 POCT U LEUK EST (test code = 3263) . Negative - Negative POCT U NIT (test code = 3262) . Negative - Negative POCT U PROT (test code = 3259) trace Negative - Negative POCT U GLU (test code = 3256) neg Negative - Negative POCT U KETONE (test code = 3258) . Negative - Negative POCT U UROBILI (test code = 3260) . 0.2-1 POCT U BILI (test code = 3261) . Negative - Negative POCT U BLD (test code = 3257) . Negative - Negative POCT U COLOR (test code = 3266) . POCT U APPEAR (test code = 3267) . [facility] URINALYSIS W SPECIFIC [id number] 16:20:00 Test Item Value Reference Range Interpretation Comments POCT U SP GRAV (test code = . 1.005-1.025 3255) POCT PH U (test code = 3254) . 5-8 POCT U LEUK EST (test code = . Negative - Negative 3263) POCT U NIT (test code = 3262) . Negative - Negative POCT U PROT (test code = 3259) trace Negative - Negative POCT U GLU (test code = 3256) negative Negative - Negative POCT U KETONE (test code = 3258) . Negative - Negative POCT U UROBILI (test code = . 0.2-1 3260) POCT U BILI (test code = 3261) . Negative - Negative POCT U BLD (test code = 3257) . Negative - Negative POCT U COLOR (test code = 3266) . POCT U APPEAR (test code = 3267) . [facility] URINALYSIS W SPECIFIC [id number] 16:52:00 Test Item Value Reference Range Interpretation Comments POCT U SP GRAV (test code = 3255) . 1.005-1.025 POCT PH U (test code = 3254) . 5-8 POCT U LEUK EST (test code = 3263) . Negative - Negative POCT U NIT (test code = 3262) . Negative - Negative POCT U PROT (test code = 3259) trace Negative - Negative POCT U GLU (test code = 3256) neg Negative - Negative POCT U KETONE (test code = 3258) . Negative - Negative POCT U UROBILI (test code = 3260) . 0.2-1 POCT U BILI (test code = 3261) . Negative - Negative POCT U BLD (test code = 3257) . Negative - Negative POCT U COLOR (test code = 3266) . POCT U APPEAR (test code = 3267) . [facility] URINALYSIS W SPECIFIC [id number] 17:10:00 Test Item Value Reference Range Interpretation Comments POCT U SP GRAV (test code = . 1.005-1.025 3255) POCT PH U (test code = 3254) . 5-8 POCT U LEUK EST (test code = . Negative - Negative 3263) POCT U NIT (test code = 3262) . Negative - Negative POCT U PROT (test code = 3259) 1+ Negative - Negative POCT U GLU (test code = 3256) negative Negative - Negative POCT U KETONE (test code = 3258) . Negative - Negative POCT U UROBILI (test code = . 0.2-1 3260) POCT U BILI (test code = 3261) . Negative - Negative POCT U BLD (test code = 3257) . Negative - Negative POCT U COLOR (test code = 3266) . POCT U APPEAR (test code = 3267) . [facility] URINALYSIS W SPECIFIC [id number] 17:10:00 Test Item Value Reference Range Interpretation Comments POCT U SP GRAV (test code = . 1.005-1.025 3255) POCT PH U (test code = 3254) . 5-8 POCT U LEUK EST (test code = . Negative - Negative 3263) POCT U NIT (test code = 3262) . Negative - Negative POCT U PROT (test code = 3259) 1+ Negative - Negative POCT U GLU (test code = 3256) negative Negative - Negative POCT U KETONE (test code = 3258) . Negative - Negative POCT U UROBILI (test code = . 0.2-1 3260) POCT U BILI (test code = 3261) . Negative - Negative POCT U BLD (test code = 3257) . Negative - Negative POCT U COLOR (test code = 3266) . POCT U APPEAR (test code = 3267) . [facility] URINALYSIS W SPECIFIC [id number] 17:10:00 Test Item Value Reference Range Interpretation Comments POCT U SP GRAV (test code = . 1.005-1.025 3255) POCT PH U (test code = 3254) . 5-8 POCT U LEUK EST (test code = . Negative - Negative 3263) POCT U NIT (test code = 3262) . Negative - Negative POCT U PROT (test code = 3259) 1+ Negative - Negative POCT U GLU (test code = 3256) negative Negative - Negative POCT U KETONE (test code = 3258) . Negative - Negative POCT U UROBILI (test code = . 0.2-1 3260) POCT U BILI (test code = 3261) . Negative - Negative POCT U BLD (test code = 3257) . Negative - Negative POCT U COLOR (test code = 3266) . POCT U APPEAR (test code = 3267) . [facility] URINALYSIS W SPECIFIC [id number] 17:10:00 Test Item Value Reference Range Interpretation Comments POCT U SP GRAV (test code = . 1.005-1.025 3255) POCT PH U (test code = 3254) . 5-8 POCT U LEUK EST (test code = . Negative - Negative 3263) POCT U NIT (test code = 3262) . Negative - Negative POCT U PROT (test code = 3259) 1+ Negative - Negative POCT U GLU (test code = 3256) negative Negative - Negative POCT U KETONE (test code = 3258) . Negative - Negative POCT U UROBILI (test code = . 0.2-1 3260) POCT U BILI (test code = 3261) . Negative - Negative POCT U BLD (test code = 3257) . Negative - Negative POCT U COLOR (test code = 3266) . POCT U APPEAR (test code = 3267) . [facility] URINALYSIS W SPECIFIC [id number] 17:16:00 Test Item Value Reference Range Interpretation Comments POCT U SP GRAV (test code = 3255) . 1.005-1.025 POCT PH U (test code = 3254) . 5-8 POCT U LEUK EST (test code = 3263) . Negative - Negative POCT U NIT (test code = 3262) . Negative - Negative POCT U PROT (test code = 3259) 1+ Negative - Negative POCT U GLU (test code = 3256) Neg Negative - Negative POCT U KETONE (test code = 3258) . Negative - Negative POCT U UROBILI (test code = 3260) . 0.2-1 POCT U BILI (test code = 3261) .. Negative - Negative POCT U BLD (test code = 3257) . Negative - Negative POCT U COLOR (test code = 3266) POCT U APPEAR (test code = 3267) [facility] URINALYSIS W SPECIFIC [id number] 17:16:00 Test Item Value Reference Range Interpretation Comments POCT U SP GRAV (test code = 3255) . 1.005-1.025 POCT PH U (test code = 3254) . 5-8 POCT U LEUK EST (test code = 3263) . Negative - Negative POCT U NIT (test code = 3262) . Negative - Negative POCT U PROT (test code = 3259) 1+ Negative - Negative POCT U GLU (test code = 3256) Neg Negative - Negative POCT U KETONE (test code = 3258) . Negative - Negative POCT U UROBILI (test code = 3260) . 0.2-1 POCT U BILI (test code = 3261) .. Negative - Negative POCT U BLD (test code = 3257) . Negative - Negative POCT U COLOR (test code = 3266) POCT U APPEAR (test code = 3267) [facility] URINALYSIS W SPECIFIC [id number] 17:16:00 Test Item Value Reference Range Interpretation Comments POCT U SP GRAV (test code = 3255) . 1.005-1.025 POCT PH U (test code = 3254) . 5-8 POCT U LEUK EST (test code = 3263) . Negative - Negative POCT U NIT (test code = 3262) . Negative - Negative POCT U PROT (test code = 3259) 1+ Negative - Negative POCT U GLU (test code = 3256) Neg Negative - Negative POCT U KETONE (test code = 3258) . Negative - Negative POCT U UROBILI (test code = 3260) . 0.2-1 POCT U BILI (test code = 3261) .. Negative - Negative POCT U BLD (test code = 3257) . Negative - Negative POCT U COLOR (test code = 3266) POCT U APPEAR (test code = 3267) [facility] MOLECULAR [id number] 18:03:57 Test Item Value Reference Range Interpretation Comments POCT Molecular FluA (test code = Negative Negative 12296-3) POCT Molecular FluB (test code = Negative Negative 02990-4) Lab Interpretation (test code = Normal 52557-1) [facility] URINALYSIS W SPECIFIC [id number] 17:09:00 Test Item Value Reference Range Interpretation Comments POCT U SP GRAV (test code = 3255) . 1.005-1.025 POCT PH U (test code = 3254) . 5-8 POCT U LEUK EST (test code = 3263) . Negative - Negative POCT U NIT (test code = 3262) . Negative - Negative POCT U PROT (test code = 3259) Trace Negative - Negative POCT U GLU (test code = 3256) Neg Negative - Negative POCT U KETONE (test code = 3258) . Negative - Negative POCT U UROBILI (test code = 3260) . 0.2-1 POCT U BILI (test code = 3261) . Negative - Negative POCT U BLD (test code = 3257) . Negative - Negative POCT U COLOR (test code = 3266) POCT U APPEAR (test code = 3267) [facility] [id number] 16:00:00 Test Item Value Reference Range Interpretation Comments Rubella screen IgG Positive Negative (test code = 0578557272) LISET (test code = LISET) Positive - Indicates the patient was exposed to Rubella through infection or vaccination.Negative - Indicates the patient could be susceptible to Rubella infection.Equivocal - A second specimen should be sent. [facility] [id number] 16:00:00 Test Item Value Reference Range Interpretation Comments VZV IgG antibody Positive Negative (test code = 76361-3) LISET (test code = LISET) Positive - Indicates the patient was exposed to VZV through infection or vaccination.Negative - Indicates the patient could be susceptible to VZV infection.Equivocal - A second specimen should be sent for testing. [facility] ONLY - SYPHILIS [id number] 15:44:18 Test Item Value Reference Range Interpretation Comments Syphilis IgG/IgM (test Non-reactive Non-reactive code = 90810-7) LISET (test code = LISET) Non-reactive - No serologic evidence of T. pallidum infection. Cannot exclude incubating or early syphilis. Submit a second specimen in 2-4 weeks if syphilis is clinically suspected. Equivocal - Further testing to follow. Reactive - Further testing to follow. Lab Interpretation (test Normal code = 90762-6) [facility] 1/2 AG-AB WITH [id number] 06:36:38 Test Item Value Reference Range Interpretation Comments HIV Negative Negative Semi-quantitative (test code = 61459-7) LISET (test code = Non-reactive for HIV-1 LISET) antigen and HIV-1/HIV-2 antibodies. ?No laboratory evidence of HIV infection. ?Repeat in 2-4 weeks if acute HIV infection is suspected. [facility]AT[facility] WORK[facility], BLOOD [id number] 05:57:54 Test Item Value Reference Range Interpretation Comments ABO & RH (test code B POSITIVE Performe d at [facility] = 20) [facility] [address] [facility] s [id number] Free: [phone] A No. [id number] IAT (test code = Negative Performed a t [facility] 1185) [facility] [address] [facility] s [id number] Free: [phone] A No. [id number] [facility]and[facility]AT[facility] B SURFACE [id number] 05:17:09 Test Item Value Reference Range Interpretation Comments HBsAg Semi-Quantitative (test code = Negative Negative 5195-3) [facility]andCB WITH [id number] 04:54:21 Test Item Value Reference Range Interpretation Comments WBC (test code = See_Comment [Automated 9190-2) message] The sy stem which generated this result transmitted reference range : 4.30 - 11.10 10*3/?L. The reference range was not used to interpret this result as normal/abnormal . RBC (test code = See_Comment [Automated 469-8) message] The sy stem which generated this result transmitted reference range : 3.93 - 5.25 10*6/?L. The reference range was not used to interpret this result as normal/abnormal . HGB (test code = 14.1 g/dL 11.6-15.0 718-7) HCT (test code = 42.3 % 35.7-45.2 4544-3) MCV (test code = 88.1 fL 80.6-95.5 787-2) MCH (test code = 29.4 pg 25.9-32.8 785-6) MCHC (test code = 33.3 g/dL 31.6-35.1 786-4) RDW-SD (test code = 42.4 fL 39.0-49.9 60366-6) RDW-CV (test code = 13.1 % 12.0-15.5 788-0) PLT (test code = See_Comment [Automated 777-3) message] The sy stem which generated this result transmitted reference range : 166 - 358 10*3/ ?L. The reference r keith was not used to interpret this result as normal/abnormal . MPV (test code = 11.8 fL 9.5-12.9 31013-2) NRBC/100 WBC (test See_Comment [Automat ed code = [id number]) message] The system which generated this result transmitted reference range : 0.0 - 10.0 /100 WBCs. The refer ence range was not u sed to interpret th is result as normal/abnormal . NRBC x10^3 (test code See_Comment [Auto mated = [id number]) message] The s ystem which generated this result transmitted reference range : 10*3/?L. The reference range was not used to interpret this result as normal/abnormal . GRAN MAT (NEUT) % 68.2 % (test code = 770-8) IMM GRAN % (test code 0.20 % = 4142409389) LYMPH % (test code = 22.9 % 736-9) MONO % (test code = 7.5 % 5905-5) EOS % (test code = 0.8 % 713-8) BASO % (test code = 0.4 % 706-2) GRAN MAT x10^3(ANC) 3.48 10*3/uL 1.88-7.09 (test code = 6387568816) IMM GRAN x10^3 (test 0.00-0.06 code = 2205562826) LYMPH x10^3 (test code 1.17 10*3/uL 1.32-3.29 L = 731-0) MONO x10^3 (test code 0.38 10*3/uL 0.33-0.92 = 742-7) EOS x10^3 (test code = 0.04 10*3/uL 0.03-0.39 711-2) BASO x10^3 (test code 0.01-0.07 = 704-7) Lab Interpretation Abnormal (test code = 36250-1) [facility] H[facility] [id number] 04:43:42 Test Item Value Reference Range Interpretation Comments GLUC 1 HR (test code = 5709987777) 111 mg/dL 120-170 L Lab Interpretation (test code = Abnormal 52332-0) [facility] URINALYSIS W/O SPECIFIC [id number] 18:46:00 Test Item Value Reference Range Interpretation Comments POCT PH U (test code = 3254) 6 mg/dl 5-8 POCT U LEUK EST (test code = negative Negative - Negative 3263) POCT U NIT (test code = 3262) negative Negative - Negative POCT U PROT (test code = 3259) trace Negative - Negative POCT U GLU (test code = 3256) negative Negative - Negative POCT U KETONE (test code = 3258) negative Negative - Negative POCT U BLD (test code = 3257) negative Negative - Negative [facility]andPOMN [id number] 18:46:00 Test Item Value Reference Range Interpretation Comments POCT PREG (test code = 1605) Positive On board controls acceptable with C Yes Line (test code = 3574) POCT PREG LOT # (test code = 3575) POCT PREG TEST DATE (test code = 3576) [facility]andPOMN [id number] 19:53:00 Test Item Value Reference Range Interpretation Comments POCT PREG (test code = 1605) Negative On board controls acceptable with C Yes Line (test code = 3574) POCT PREG LOT # (test code = 3575) POCT PREG TEST DATE (test code = 3576) [facility]
[2022-10-09] MEDS ORDERED: ACETAMINOPHEN 500 MG TAB ONE (09:34)
[2022-10-09] MEDS ORDERED: KETOROLAC 30 MG/ML INJ ONE (09:35)
[2022-10-09] MEDS ORDERED: LIDOCAINE 4% PATCH ONE (09:35)
[2022-10-09 09:42] LABS: Specific Gravity > 1.030 (1.005-1.030)
--- NOTE | 2022-10-09 10:20 | RAD REPORT ---
EXAM DESCRIPTION: CT - C Spine Wo Con - 10/09/2022 10:09 am CLINICAL HISTORY: ?mass C7, pain Pain, radiculopathy COMPARISON: <Comparisons> FINDINGS: The cervical vertebral body heights and disc spaces are maintained. No evidence of acute cervical spine fracture or subluxation. Prevertebral soft tissues are normal in thickness. IMPRESSION: Unremarkable study. All CT scans are performed using dose optimization technique as appropriate and may include automated exposure control or mA/KV adjustment according to patient size.
--- NOTE | 2022-10-09 10:24 | RAD REPORT ---
EXAM DESCRIPTION: CT - Thoracic Spine W/o Cont - 10/09/2022 10:09 am CLINICAL HISTORY: Radiculopathy. PAIN COMPARISON: <Comparisons> TECHNIQUE: Axial CT imaging through the thoracic spine was performed with coronal and sagittal re-fo rmatted images. All CT scans are performed using dose optimization technique as appropriate and may include automated exposure control or mA/KV adjustment according to patient size. FINDINGS: Vertebral body heights and disc spaces are maintained. A compression fracture is not prese nt. No significant disc space narrowing. Thoracic spine alignment is within normal limits. No paraspinal masses or hematoma. Intervertebral disc detail is inherently limited on CT without gross findings of canal compromise. IMPRESSION: Negative study.
--- NOTE | 2022-10-09 10:43 | ER ---
Nurse's Notes [facility] Name: Chay Nicholson Age: 22 yrs Sex: Female : 2000 Arrival Date: 10/09/2022 Time: 09:03 Bed 15 Private MD: Diagnosis: cervical sprain Presentation: 10/09 09:18 Chief complaint: Patient states: Upper back and neck pain started yesterday. No ll1 falls/trauma. Coronavirus screen: Vaccine status: Patient reports being unvaccinated. Client denies travel out of the [place] in the last 14 days. At this time, the client does not indicate any symptoms associated with coronavirus-19. Ebola Screen: Patient denies travel to an Ebola-affected area in the 21 days before illness onset. Acute neurological deficit: none identified. Initial Sepsis Screen: Does the patient meet any 2 criteria? No. Patient's initial sepsis screen is negative. Does the patient have a suspected source of infection? No. Patient's initial sepsis screen is negative. Risk Assessment: Do you want to hurt yourself or someone else? Patient reports no desire to harm self or others. Onset of symptoms was October 08, 2022. 09:18 Method Of Arrival: Ambulatory ll1 09:18 Acuity: VISH 4 ll1 Triage Assessment: 09:21 General: Appears uncomfortable, Behavior is calm, cooperative, appropriate for age. ll1 Pain: Complains of pain in upper back/neck Pain currently is 8 out of 10 on a pain scale. Quality of pain is described as aching, Pain began 1 day ago. Musculoskeletal: Circulation, motion, and sensation intact. Capillary refill < 3 seconds, Reports pain in upper back/neck. Historical: - Allergies: 09:06 No Known Allergies; ll1 - PMHx: 09:06 None; ll1 - PSHx: 09:06 None; ll1 - Immunization history:: Client reports having NOT received the Covid vaccine. - Social history:: Smoking status: Patient denies any tobacco usage or history of. Screenin:35 [facility] ED Fall Risk Assessment (Adult) History of falling in the last 3 months, bp including since admission No falls in past 3 months (0 pts). Abuse screen: Denies threats or abuse. Denies injuries from another. Nutritional screening: No deficits noted. Tuberculosis screening: No symptoms or risk factors identified. Assessment: 09:10 General: SEE TRIAGE NOTE. Neuro: Level of Consciousness is awake, alert, obeys bp commands, Oriented to Appropriate for age Gait is steady, Speech is normal. 10:50 Reassessment: PT DC HOME AMBULATORY. bp Vital Signs: 09:18 BP 135 / 101; Pulse 70; Resp 16; Temp 98.5; Pulse Ox 100% on R/A; Weight 56.7 kg; ll1 Height 5 ft. 0 in. ; Pain 8/10; 09:18 Body Mass Index 24.41 (56.70 kg, 152.4 cm) ll1 09:18 Pain Scale: Adult ll1 ED Course: 09:05 Patient arrived in ED. im 09:05 Arm band placed on Patient placed in an exam room, on a stretcher. ll1 09:07 Wilfredo Villatoro MD is Attending Physician. [id number] 09:09 Adal Madison, RN is Primary Nurse. bp 09:21 Triage completed. ll1 09:35 Patient has correct armband on for positive identification. Bed in low position. Call bp light in reach. Side rails up X2. 09:44 Radiology exam delayed due to test not completed at this time. sj 10:11 CT Thoracic Spine Wo Cont In Process Unspecified. EDMS 10:11 CT C Spine In Process Unspecified. EDMS 10:50 No provider procedures requiring assistance completed. Patient did not have IV access bp during this emergency room visit. Administered Medications: 09:34 Drug: Lidoderm Topical Patch 5 % (700 mg/patch) 1 patches Route: Topical; Site: bp affected area; 09:35 Drug: Ketorolac IM 60 mg Route: IM; Site: right gluteus; bp 10:51 Follow up: Response: No adverse reaction bp 09:35 Drug: Acetaminophen PO 1000 mg Route: PO; bp 10:51 Follow up: Response: No adverse reaction bp Medication: 10:50 VIS not applicable for this client. bp Outcome: 10:43 Discharge ordered by . [id number] 10:50 Discharged to home ambulatory. bp 10:50 Condition: stable 10:50 Discharge instructions given to patient, family, Instructed on discharge instructions, follow up and referral plans. medication usage, Demonstrated understanding of instructions, follow-up care, medications, Prescriptions given X 2. 10:51 Patient left the ED. bp Signatures: Dispatcher [employer] Shayy Schmitt Brian, RN RN bp Quiana Everett RN RN ll1 Wilfredo Villatoro MD MD [id number] Patrica Robles
--- NOTE | 2022-10-09 10:43 | EDPHYS ---
Physician Documentation [facility] Name: Chay Nicholson Age: 22 yrs Sex: Female : 2000 Arrival Date: 10/09/2022 Time: 09:03 Bed 15 Private MD: ED Physician Wilfredo Villatoro HPI: 10/09 09:18 This 22 yrs old Female presents to ER via Unassigned with complaints of Neck jr11 and Upper Back Pain. 09:18 The patient or guardian complains of pain, that is acute. The symptoms are located at jr11 the C6 and C7. Onset: The symptoms/episode began/occurred last night. Context: none . Associated signs and symptoms: Pertinent positives: tingling, in the left hand, Pertinent negatives: chills, fever, nausea, numbness. Modifying factors: The symptoms are alleviated by movement of neck. Severity of symptoms: At their worst the symptoms were moderate, in the emergency department the symptoms are unchanged. The patient has experienced a previous episode. Pt feels a "hump" around C7, had it before but went away on its own . Feels tingling to L pinky, no weakness or sensory loss. Historical: - Allergies: 09:06 No Known Allergies; ll1 - PMHx: 09:06 None; ll1 - PSHx: 09:06 None; ll1 - Immunization history:: Client reports having NOT received the Covid vaccine. - Social history:: Smoking status: Patient denies any tobacco usage or history of. ROS: 09:18 All other systems are negative. jr11 Exam: 09:18 Constitutional: This is a well developed, well nourished patient who is awake, alert, jr11 and in no acute distress. Head/Face: Normocephalic, atraumatic. Eyes: Extra-ocular motions intact. Lids and lashes normal. Conjunctiva and sclera are non-icteric and not injected. Cornea within normal limits. Periorbital areas with no swelling, redness, or edema. Chest/axilla: Normal chest wall appearance and motion. Nontender with no deformity. No lesions are appreciated. Cardiovascular: Regular rate and rhythm with a normal S1 and S2. No gallops, murmurs, or rubs. Normal PMI, no JVD. No pulse deficits. Respiratory: Lungs have equal breath sounds bilaterally, clear to auscultation and percussion. No rales, rhonchi or wheezes noted. No increased work of breathing, no retractions or nasal flaring. Abdomen/GI: Soft, non-tender, with normal bowel sounds. No distension or tympany. No guarding or rebound. No evidence of tenderness throughout. Back: Patient with some prominence over C7 which is expected however she says that it is more swollen than usual. Patient with tenderness to palpation paravertebral musculature along her cervical spine and also thoracic spine. Limited neck range of motion secondary to pain, no meningismus Skin: Warm, dry with normal turgor. Normal color with no rashes, no lesions, and no evidence of cellulitis. MS/ Extremity: Pulses equal, no cyanosis. Neurovascular intact. Full, normal range of motion. Vital Signs: 09:18 BP 135 / 101; Pulse 70; Resp 16; Temp 98.5; Pulse Ox 100% on R/A; Weight 56.7 kg; ll1 Height 5 ft. 0 in. ; Pain 8/10; 09:18 Body Mass Index 24.41 (56.70 kg, 152.4 cm) ll1 09:18 Pain Scale: Adult ll1 MDM: 09:14 Patient medically screened. jr11 09:18 Differential diagnosis: arthritis, Degenerative Disc Disease torticollis, Patient feels jr11 fullness around C7, this is likely all musculoskeletal however will CT, rule out mass. No neuro deficits on neurologic exam no weakness no sensory loss. Data reviewed: vital signs, nurses notes. 10:41 ED course: Pt feeling significantly better, CT images viewed, no mass. jr11 10/09 09:23 Order name: Test, Urine; Complete Time: 09:52 bp 10/09 09:18 Order name: CT Thoracic Spine Wo Cont; Complete Time: 10:31 jr11 10/09 09:18 Order name: CT C Spine; Complete Time: : jr11 Administered Medications: 09:34 Drug: Lidoderm Topical Patch 5 % (700 mg/patch) 1 patches Route: Topical; Site: bp affected area; 09:35 Drug: Ketorolac IM 60 mg Route: IM; Site: right gluteus; bp 10:51 Follow up: Response: No adverse reaction bp 09:35 Drug: Acetaminophen PO 1000 mg Route: PO; bp 10:51 Follow up: Response: No adverse reaction bp Disposition Summary: 10/09/22 10:43 Discharge Ordered Location: Home jr Condition: Stable jr11 Diagnosis - cervical sprain jr11 Discharge Instructions: - Discharge Summary Sheet jr11 - Acute Torticollis, Adult jr11 Forms: - Medication Reconciliation Form jr11 - Thank You Letter jr11 - Antibiotic Education jr11 - Prescription Opioid Use jr11 - [email or web address] jr11 Prescriptions: - ketorolac 10 mg Oral tablet - take 1 tablet by ORAL route every 6 hours for 4 days as needed for pain; 20 jr11 tablet; Refills: 0, Product Selection Permitted - methocarbamol 750 mg Oral Tablet - take 1 tablet by ORAL route 3 times per day prn msc spasms; 20 tablet; Refills: jr11 0, Product Selection Permitted Signatures: Dispatcher [employer] Adal Luong RN RN bp Lewis, Lynsay, RN RN ll1 Wilfredo Villatoro MD MD jr11
[2022-10-09 10:56] VITALS: BP 135/101; TEMP 98.5; O2SAT 100
== END 2022-10-09 10:51 | disposition home or self-care (01) ==
LOC: ER 09:03
DX: S13.4XXA Sprain of ligaments of cervical spine, initial encounter (principal)
CPT/HCPCS: 81025; 72125; 72128; 96372; 99284; J2001